=== PATIENT | male | born 1935 | race Caucasian/White ===

== ENCOUNTER 2019-10-17 16:50 | Inpatient (IN) ==
[2019-10-17] MEDS ORDERED: PIPERACILL/TAZOBAC CONSULT ACTIVE PRN (18:01)
[2019-10-17] MEDS ORDERED: ACETAMINOPHEN 1000 MG/100 ML IV IV PRN (18:01)
[2019-10-17] MEDS ORDERED: ONDANSETRON INJ 2 MG/ML 2 ML VIAL IV PRN (18:01)
[2019-10-17] MEDS ORDERED: MoRPHine SULFATE 4 MG/ML 1 ML CARP\\VIAL IV PRN (18:01)
[2019-10-17] MEDS ORDERED: PATIENT'S HEIGHT AND/OR WEIGHT NEEDED SCH (18:15)
[2019-10-17] MEDS ORDERED: PATIENT'S ALLERGY INFO NEEDS ENTERED SCH (18:15)
[2019-10-17] MEDS ORDERED: GLUCOSE 40% GEL 15 GM TUBE PO PRN (18:43)
[2019-10-17] MEDS ORDERED: GLUCOSE 10 TABS/TUBE PO PRN (18:43)
[2019-10-17] MEDS ORDERED: GLUCAGON FOR INJ 1 MG VIAL SQ PRN (18:43)
[2019-10-17] MEDS: SODIUM CHLORIDE 0.9% 1000ML 1,000 ML IV SCH (18:44)
[2019-10-17] MEDS ORDERED: HydrALAZINE HCL 20 MG/ML VIAL IV PRN (18:47)
--- NOTE | 2019-10-17 19:26 | History & Physical Report ---
Date of Service October 17, 2019 Assessment & Plan (1) Cholelithiasis: Patient be brought and kept n.p.o. for general surgical consultation. General surgery is requested MRCP. The patient will be on Zosyn therapy. He will be hydrated with intravenous fluids while he is n.p.o. with pain and antiemetic control given Preoperative COVID test is ordered the patient is without symptoms (2) Diabetes: Patient is Trulicity and Januvia will be held sliding scale insulin be employed to be given 1 dose of Lantus this evening for glucose with 200s at [facility] a glycemic consult and A1c is ordered (3) Coronary artery disease: Patient has a history of a distant CABG including a FLORES he has had no coronary symptoms and is taken on nitro for some time. He did not take either of his aspirin or Plavix this morning the only other antihypertensives and he is on his Norvasc this will be held and held hydralazine as needed for blood pressure control (4) GERD (gastroesophageal reflux disease): Patient typically is on both Pepcid and Prilosec IV Pepcid will be continued at this time (5) BPH (benign prostatic hyperplasia): Patient typically is on Flomax therapy at this point time if he does have an operation likely a José catheter will be placed Flomax is currently being held (6) Reactive airway disease: Patient is asymptomatic at this time he typically takes Singulair this can begin with a small sip of water (7) DVT prophylaxis: SCDs are used Admission and Anticipated Discharge Date Admission Date: October 17, 2019 History of Present Illness Primary Care Provider: Teresa Damon DO Patient is a transfer from [facility]. He reportedly was in his normal state of health when he was awoken at 3 AM but pain is right upper quadrant which seem to radiate to the left side. He did not did throw up at home but then presents to the hospital did vomit yellowish material there is no coffee grounds or blood. In the [place] is felt he might have cholecystitis as he did have gallbladder distention and gallstones seen on ultrasound. The patient has a history of a similar event a few years ago which resolved with conservative management. Patient only symptoms preoperatively have been intermittent constipation which is been remedied by MiraLAX and Colace. Patient states that also few months ago he had what sounds like amaurosis fugax and he has an evaluation of his carotid artery and was started on Plavix therapy in addition to his daily aspirin. Patient has known coronary disease and had a four-vessel CABG done in 1997 according to the patient 1 being a FLORES. Reportedly his glucose was in relatively good control taking Trulicity and Januvia. 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 which limits the vigorousness of his ability to do things but he does do gentle stretching without shortness of breath and he can lay flat without being short of breath also Home Medications Home Medications Medication Instructions Recorded Confirmed Type allopurinol 10/17/19 History amlodipine 10/17/19 History atorvastatin 10/17/19 History clopidogrel 10/17/19 History dulaglutide [Trulicity] mg SUBCUT 10/17/19 History famotidine 10/17/19 History fluticasone propionate INTRANASAL 10/17/19 History gabapentin 10/17/19 History montelukast mg 10/17/19 History nitroglycerin mg 10/17/19 History omeprazole 10/17/19 History sitagliptin [Januvia] mg 10/17/19 History tamsulosin mg PO 10/17/19 History Past Med/Surg History Social History Smoking Status: Never smoker Hx Alcohol Use: No Hx Substance Use: No Preferred Language: New Zealander Communication Ability: Effective Central Processing Technician Required: No Beliefs That Will Affect Care: None Current Living Situation: Spouse Other Information That Helps Us Care for You: No Feels Safe at Home: Yes Safety Concerns: Feels Safe At This Time Review of Systems Review of Systems: Mild distress and fatigue no headache, blurry or double vision no speech or swallowing issues no chest pain, pressure or palpitations no shortness of breath, cough or wheezes Right upper quadrant reproducible abdominal pain, with associated nausea & vomiting, no dysuria, hematuria or frequency no focal joint pain or swelling Radicular left-sided back pain which is pre-existing this acute event no bruising, bleeding or rashes no focal signs of weakness or numbness or altered sensation no complaints or anxiety or depression. Physical Exam Physical Exam: The patient appeared well nourished and normally developed. Vital signs as documented. Head exam is normocephalic atraumatic no scleral icterus Neck is without JVD, thyromegaly, or carotid bruits. Lungs are clear to auscultation, no focal loss of breath sounds Cardiac exam, Rhythm is regular.. No murmurs, rubs or gallops. Abdominal exam reveals normal bowel sounds, soft reproducible tenderness in the right upper quadrant Extremities are nonedematous and both pedal pulses are normal. Neurologic exam is alert and oriented, no focal loss of strength or sensation Skin is without bruises or rashes Psychologically is without concerns for anxiety or depression. Results & Data Results & Data ([facility]) Vital Signs (Past 12 Hours) Vital Signs Temp Pulse Resp BP Pulse Ox 10/17/19 18:16 99.7 F H 120 H 14 159/79 H 96 review of reports from walking the hospital CT scan of the abdomen showed gallbladder stones and distention. There is a noted 4 x 3.7 cm soft tissue mass of the gastrohepatic ligament which is similar to 2015. Ultrasound the right upper quadrant also confirmed gallbladder stones there is no comment on pericholecystic fluid Code Status & VTE Plan VTE Prophylaxis Plan VTE Prophylaxis will be ordered: Yes PG Care Time/CCT Total # of Minutes Spent Total Time Spent with Patient: Total time spent is greater than 50% in coordination of care (as documented) at patient's floor/unit and/or counseling patient: Coding Level of Care Code 21076 Initial Inpt Care Lvl 3 Diagnoses Cholelithiasis K80.20 Diabetes E11.9 Coronary artery disease I25.10 GERD (gastroesophageal reflux disease) K21.9 BPH (benign prostatic hyperplasia) N40.0 Reactive airway disease J45.909 DVT prophylaxis Z29.9
--- NOTE | 2019-10-17 19:48 | Surgery Consultation ---
Date of Consultation October 17, 2019 Assessment & Plan (1) Cholelithiasis: -pt. 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 He was in his usual state of kulwinder but woke up this morning with RUQ pain with subsequent N/V. At [place] he had a GB US that showed some gallstones with GB distention but no pericholecystic fluid. He denies palliative or provocative factors, but had a similar event a few years ago that resolved without intervention. Due to concern for cholecystitis, he was transferred to [facility] for surgical care. Upon further questioning, he had a hx. of gastric ulcer several years ago diagnosed by upper endoscopy. He noted he was having melena at the time, but has not had this problem since . He also notes a hx. of 9 pound weight loss over the past several months. He does note having several colonoscopies in the past and has been noted to have some polyps. The pt. does take plavix for hx. of TIA several months ago. He notes his most recent dose of these medication was the evening of 10/16/19. At the time of my exam, he was resting in bed, in no distress. Allergies Allergy/AdvReac Type Severity Reaction Status Date / Time No Known Allergies Allergy Unverified 10/17/19 20:49 Home Medications Home Medications Medication Instructions Recorded Confirmed Type allopurinol 10/17/19 History amlodipine 10/17/19 History atorvastatin 10/17/19 History clopidogrel 10/17/19 History dulaglutide [Trulicity] mg SUBCUT 10/17/19 History famotidine 10/17/19 History fluticasone propionate INTRANASAL 10/17/19 History gabapentin 10/17/19 History montelukast mg 10/17/19 History nitroglycerin mg 10/17/19 History omeprazole 10/17/19 History sitagliptin [Januvia] mg 10/17/19 History tamsulosin mg PO 10/17/19 History Patient History Social History Smoking Status: Never smoker Hx Alcohol Use: No Hx Substance Use: No Preferred Language: Nauruan Communication Ability: Effective Weight Loss Consultant Required: No Beliefs That Will Affect Care: None Current Living Situation: Spouse Other Information That Helps Us Care for You: No Feels Safe at Home: Yes Safety Concerns: Feels Safe At This Time Results & Data ([facility]) Vital Signs (Past 12 Hours) Vital Signs Temp Pulse Resp BP Pulse Ox 10/17/19 18:16 37.6 C H 120 H 14 159/79 H 96 PG Care Time/CCT Total # of Minutes Spent Total Time Spent with Patient: Total time spent is greater than 50% in coordination of care (as documented) at patient's floor/unit and/or counseling patient: Coding Level of Care Code 10592 Inpt Consult Level 5 Diagnoses Cholelithiasis K80.20
[2019-10-17] MEDS ORDERED: PHARMACY GLYCEMIC MGMT CONSULT PRN (19:55)
--- NOTE | 2019-10-17 20:49 | Magnetic Resonance Report ---
MRCP CLINICAL HISTORY: Generalized abdominal pain. Nausea and vomiting. COMPARISON STUDY: No priors. TECHNIQUE: Abdominal MRCP is performed utilizing various T2-weighted sequences in the axial and coron al planes. IV contrast was not administered for this examination. 3-D reformats are created and asses sed. The examination is modestly degraded by motion artifact. FINDINGS: The gallbladder is mildly distended and there are numerous small gallstones identified. There is no g allbladder wall thickening or pericholecystic fluid to suggest acute cholecystitis. There is no intra or extrahepatic biliary ductal dilatation. The common bile duct measures up to 3.5 mm in diameter. T here are no filling defects to suggest choledocholithiasis. The pancreatic duct is normal in caliber. The unenhanced liver, spleen, and adrenal glands are grossly normal. The kidneys demonstrate cortical atrophy and are without hydronephrosis. The pancreas is atrophic but otherwise normal in appearance. The abdominal aorta is normal in caliber. There is no bowel obstruction. Mild fecal retention is not ed in the colon. An indeterminant round heterogeneous mass lesion is seen along the greater curvature of the stomach on axial image #10. This measures 3.3 x 4.1 x 3.5 cm. There is no abdominal ascites. No adenopathy is seen. There is a trace right pleural effusion. Midline sternotomy wires are noted. T he heart appears enlarged and is without pericardial effusion. The bony structures are intact as imag ed. IMPRESSION: 1. Cholelithiasis with a mildly distended gallbladder. There is no convincing MRI evidence of acute c holecystitis. If there is strong clinical concern for acute cholecystitis ultrasound or nuclear hepat obiliary scan should be considered. 2. There is no intra or extrahepatic biliary ductal dilatation, and no evidence of choledocholithiasi s. 3. There is an indeterminant 4.1 cm rounded mass lesion along the greater curvature of the stomach. T his is pathologically indeterminant, and the appearance favors a GIST. Correlation with a contrast-en hanced CT scan of the abdomen and pelvis is recommended for further assessment. 4. Trace right pleural effusion. Electronically signed by: Lázaro Viveros M.D. 10/17/2019 8:48 PM
[2019-10-17] MEDS ORDERED: PIPERACILLIN/TAZOBACTAM 4.5 GM in DEXTROSE 5% 100 ML IV ONE (21:15)
[2019-10-17] MEDS ORDERED: INSULIN GLARGINE SOLOSTAR 100 UNITS/ML 3 ML PEN SC ONE ×2 (21:15→21:30)
[2019-10-17] MEDS: MONTELUKAST SODIUM 10 MG TABLET PO SCH (21:27)
[2019-10-17] MEDS: FAMOTIDINE 20 MG in SYRINGE 3 ML IV SCH (21:27)
--- NOTE | 2019-10-17 21:33 | Pharmacy Report ---
Glycemic Control Consultation - Date of Service October 17, 2019 - Scope Scope: Glycemic Pharmacist consulted for glycemic control and to write orders per [facility] inpatient glycemic control protocol. - Objective Weight: 77.5 kg Accuchecks BSG (last 24hrs): 10/17/19 10/17/19 20:47 20:48 POC Glucose 302 H* 280 H - Recent Pertinent Medications Outpatient Anti-diabetic Regimen: * Trulicity 1.5 mg SC weekly * Januvia 100 mg PO daily * A1c pending for tomorrow morning - Assessment & Plan Assessment & Plan: ASSESSMENT: * DS is an 84 year old male transferred from [facility] due to concerns for cholecystitis * Initial BSG on unit was 307 mg/dL, recheck of 280 mg/dL * Patient is NPO for MRCP/possible surgical intervention * Ordered Zosyn empirically * Will give low dose basal and utilize Novolog q3h overnight (21,00,03,06) * Will reassess insulin needs in AM PLAN FOR INPATIENT GLYCEMIC CONTROL: * Holding outpatient oral diabetes medications * Basal insulin * Lantus 10 units SC x 1 * Bolus insulin * NovoLog per scale ACHS or Q6hrs while NPO * Goal Range: Low 110 mg/dL - High 150 mg/dL * Correction Factor: 30 mg/dL/unit * Nutritional / Prandial insulin per carb ratio of 1 unit per 10 grams CHO consumed * 0300 check this evening * Please note that the plan above was derived based on current level of insulin resistance and hospital stress. These recommendations are appropriate for inpatient admission only. Plan of care upon discharge will need to be reassessed to avoid potential outpatient hypo/hyperglycemia. Thank you.
[2019-10-17] MEDS: INSULIN ASPART 100 UNITS/ML 3 ML PEN SC SCH (21:40)
[2019-10-18] MEDS: INSULIN ASPART 100 UNITS/ML 3 ML PEN SC SCH ×4 (00:05→18:26)
[2019-10-18] MEDS ORDERED: INSULIN ASPART 100 UNITS/ML 3 ML PEN SC SCH (03:00)
[2019-10-18] MEDS: PIPERACILLIN/TAZOBACTAM 3.375 GM in DEXTROSE 5% 100 ML IV SCH ×3 (03:02→18:17)
[2019-10-18] MEDS: SODIUM CHLORIDE 0.9% 1000ML 1,000 ML IV SCH ×2 (05:36→14:28)
[2019-10-18 06:09] LABS: Hematocrit (blood only) 34.4 % (42-52); Hemoglobin 11.6 g/dL (14.0-18.0); Mean Corpuscular Hemoglobin 29.6 pg (25-34); Mean Corpuscular Hgb Conc 33.7 g/dL (32-36); Mean Corpuscular Volume 87.8 fL (80-100); Mean Platelet Volume 10.2 fL (7.4-10.4); Platelet Count 148 K/uL (130-400); RDW Coefficient of Variation 15.2 % (11.5-14.5); RDW Standard Deviation 48.5 fL (36.4-46.3); Red Blood Count 3.92 M/uL (4.7-6.1); White Blood Count 15.65 K/uL (4.8-10.8)
[2019-10-18 06:15] LABS: Estimated Average Glucose 197 mg/dl; Hemoglobin A1C 8.5 % (4.5-5.6)
[2019-10-18 06:19] LABS: INR 1.2 (0.9-1.1); Partial Thromboplastin Ratio 1.2; Partial Thromboplastin Time 32.5 Seconds (21.0-31.0); Prothrombin Time 12.6 Seconds (9.0-12.0)
[2019-10-18 06:53] LABS: Albumin Level 2.9 gm/dl (3.4-5.0); BUN Creatinine Ratio 13.2 (10-20); Bilirubin Direct 0.3 mg/dl (0-0.2); Calcium 8.1 mg/dl (8.5-10.1); Creatinine Clr Calc Pharmacy 35.6 ml/min; Est GFR (African American) 47.6; Est GFR (Non-African American) 41.1; Potassium 3.6 mmol/L (3.5-5.1)
[2019-10-18 06:56] LABS: Bilirubin,Total 2.2 mg/dl (0.2-1); Total Protein 6.3 gm/dl (6.4-8.2)
[2019-10-18] MEDS: FAMOTIDINE 20 MG in SYRINGE 3 ML IV SCH ×2 (09:27→20:29)
--- NOTE | 2019-10-18 11:43 | Surgery Progress Note ---
Date of Service October 18, 2019 Assessment & Plan (1) Cholelithiasis: I do believe his symptoms are from acute cholecystitis. My original attempt was to take him urgently for cholecystectomy. However his bilirubin has bumped and I have since learned that he is on aspirin and Plavix and has only been off of them for about a day and a half. I have also reviewed his CT scan from [place] with radiology and he has an exophytic mass on the lesser curvature of the stomach near the gastropathic ligament. 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 This is somewhat concerning particularly considering his recent unexplained weight loss. The patient also tells me that he had what appears to be stroke-like symptoms in the last 2 weeks which include amaurosis fugax as well as slurred speech. Considering this whole situation I think the best course of action would be to consult GI to get their opinion regarding his increasing bilirubin. We should also obtain carotid Dopplers to evaluate his TIA symptoms. This will also give us a couple days to allow the Plavix and aspirin to washout because the mass near his stomach should be biopsied at the time of his cholecystectomy. If everything works out over the weekend I can potentially perform cholecystectomy and biopsy of the gastric mass on Monday or Monday of next week. Will discuss with primary team. Would continue n.p.o. for now as well as antibiotics. If his symptoms improve he could potentially have a bland diet over the weekend. [facility] surgeons covering for weekend. (2) Coronary artery disease: (3) Gastric mass: Admission and Anticipated Discharge Date Admission Date: October 17, 2019 Subjective pt seen. transferred from [facility] with RUQ pain. Imaging reveals gallstones with a mildly thickened gallbladder wall. He states he believes he has had this before several years ago which resolved with conservative management. He also has a slight bump in his total bilirubin. It was 1.8 yesterday and 2.1 today. He believes his pain is somewhat improved from yesterday. He does feel weak. Surprisingly he is somewhat hungry and would like something to eat. He also relates that he has lost about 10 pounds in the last several weeks unintentionally. Physical Exam Physical Exam: Alert and oriented. No acute distress. Appears comfortable. HEENT: No visible jaundice. PERRLA. EOMI. Abdomen: Soft. Positive epigastric and right upper quadrant tenderness to palpation. No peritonitis. No palpable masses. Extremities: No clubbing cyanosis or edema Results & Data ([facility]) Vital Signs (Past 12 Hours) Vital Signs Temp Pulse Resp BP Pulse Ox 10/18/19 07:41 37.9 C H 76 20 127/64 90 10/18/19 03:10 37.5 C 80 16 152/73 H 94 10/17/19 23:52 37.9 C H 88 18 159/71 H 93 PG Care Time/CCT Total # of Minutes Spent Total Time Spent with Patient: Total time spent is greater than 50% in coordination of care (as documented) at patient's floor/unit and/or counseling patient: Coding Level of Care Code 45974 Subseq Hosp Care Lvl 3 Diagnoses Cholelithiasis K80.20 Coronary artery disease I25.10 Gastric mass K31.89
--- NOTE | 2019-10-18 13:13 | Gastrointestinal Consultation ---
Date of Consultation October 18, 2019 Assessment & Plan (1) Elevated bilirubin: Discussed with Dr. Mesa. Predominantly indirect hyperbilirubinemia noted with a T bili of 2.2 and D bili of 0.3. MRCP did not note any ductal abnormalities or concern for choledocholithiasis. Per general surgery note, it is felt that the patient has acute cholecystitis and reportedly there are plans for a cholecystectomy. Would advise continuing to monitor bilirubin. If patient develops jaundice or significantly worsening lab values, consider repeat imaging to assess for biliary ductal abnormalities/stones. Otherwise, would recommend proceeding with a cholecystectomy (when medically stable in all regards) with an IOC if it is felt that the patient has cholecystitis. 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 Per General surgery note, it appears that the plan is to biopsy this during cholecystectomy. Supervising Physician Co-Signing Physician Notes Agree with RAJAT Armijo as above Abd: Soft, Tender RUQ, ND, +BS Continue current therapy and supportive care Defer to surgery regarding cholecystectomy Patient does have history of PUD, therefore, will add Protonix 40 mg IV daily History of Present Illness Reason for Consultation: Elevated bilirubin Attending Physician: Anabel Villagran MD History of Present Illness Patient is an 84 yo male who was transferred to [facility] from [facility]. He reports that he had an abrupt onset of RUQ pain on 10/16. He called his PCP and was instructed to go to the ED. He reports vomiting a bilious substance but denies coffee ground emesis/bright red emesis. He reportedly had an US in [place] that apparently indicated a questionable cholecystitis, gallbladder distention, and gallstones. The patient reports similar issues in the past, but reports that he never opted to have a cholecystectomy. GI has been consulted for an elevated bilirubin. His total bili is 2.2. Repor tedly was lower on labs performed at [facility] on 10/16. Direct bili is 0.3 indicated a predominantly indirect hyperbilirubinemia. Other LFTs are within normal limits. 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 There were no biliary ductal abnormalities noted on imaging studies. The patient is now off his Aspirin and Plavix in preparation for a cholecystectomy. Unfortunately he is reporting severe weakness and inability to ambulate the way he normally can according to his reports. It appears a neuro work-up was initiated by general surgery. He denies family history of GI issues. Allergies Allergy/AdvReac Type Severity Reaction Status Date / Time No Known Allergies Allergy Unverified 10/17/19 20:49 Home Medications Home Medications Medication Instructions Recorded Confirmed Type allopurinol 10/17/19 History amlodipine 10/17/19 History atorvastatin 10/17/19 History clopidogrel 10/17/19 History dulaglutide [Trulicity] mg SUBCUT 10/17/19 History famotidine 10/17/19 History fluticasone propionate INTRANASAL 10/17/19 History gabapentin 10/17/19 History montelukast mg 10/17/19 History nitroglycerin mg 10/17/19 History omeprazole 10/17/19 History sitagliptin [Januvia] mg 10/17/19 History tamsulosin mg PO 10/17/19 History Patient History Social History Smoking Status: Never smoker Hx Alcohol Use: No Hx Substance Use: No Preferred Language: Chinese Communication Ability: Effective Relief Driller Required: No Beliefs That Will Affect Care: None Current Living Situation: Spouse Other Information That Helps Us Care for You: No Feels Safe at Home: Yes Safety Concerns: Feels Safe At This Time Review of Systems Constitutional: + fatigue and + weakness; no fever and no chills Eyes: no problem reported Ear, Nose, Mouth, Throat: no problem reported Respiratory: no cough and no dyspnea Cardiovascular: no chest pain Gastrointestinal: + abdominal pain, + nausea, + vomiting and + constipation Musculoskeletal: difficulty ambulating Integumentary: no rash Neurologic: + generalized weakness Psychiatric: no problem reported Hematologic / Lymphatic: no unexplained weight loss Physical Exam Constitutional: well developed and + ill appearing Eyes: no conjunctival abnormality Neck: normal visual inspection Respiratory: normal respiratory effort Cardiovascular: Extremities: no edema Gastrointestinal (Abdomen): Inspection/Auscultation: abdomen normal to inspection Percussion/Palpation: + abdomen tender and abdomen soft Musculoskeletal: Head/Neck/Chest: normocephalic Skin: no rashes, warm and dry Psychiatric: Orientation: alert and oriented x 3 Results & Data ([facility]) Vital Signs (Past 12 Hours) Vital Signs Temp Pulse Resp BP Pulse Ox 10/18/19 07:41 37.9 C H 76 20 127/64 90 10/18/19 03:10 37.5 C 80 16 152/73 H 94 PG Care Time/CCT Total # of Minutes Spent Total Time Spent with Patient: Total time spent is greater than 50% in coordination of care (as documented) at patient's floor/unit and/or counseling patient: Coding Level of Care Code 06366 Inpt Consult Level 3 Diagnoses Elevated bilirubin R17 Gastric mass K31.89
[2019-10-18] MEDS: ASPIRIN 81 MG ECTAB PO SCH (14:28)
--- NOTE | 2019-10-18 14:46 | Pharmacy Report ---
Glycemic Control Progress Note - Date of Service October 18, 2019 - Scope Glycemic Pharmacist consulted for glycemic control to write orders per [facility] inpatient glycemic control protocol. - Objective Accuchecks BSG(last 24 hours):: 10/17/19 10/17/19 10/17/19 20:47 20:48 23:49 Glucose POC Glucose 302 H* 280 H 215 H 10/18/19 10/18/19 10/18/19 02:59 05:26 05:29 Glucose 132 H POC Glucose 169 H 136 H 10/18/19 12:40 Glucose POC Glucose 147 H HbA1c:: Hemoglobin A1c 8.5 % (4.5-5.6) H 10/18/19 05:26 - Recent Pertinent Medications The patient is currently receiving: * Basal insulin: Lantus 10 units SQ x 1 * Correctional Insulin: Novolog Correction per scale ACHS Goal Range: Low 110 mg/dL - High 150 mg/dL Correction Factor: 30 mg/dL/unit * Prandial insulin: Per carb ratio of 1 unit per 10 grams CHO consumed - Outpatient Anti-Diabetic Meds [facility] 1.5 weekly Januvia 50 mg daily - Assessment & Plan ASSESSMENT: * See progress note from 10/17/19 for more background info, in short: * Pt receiving SQ basal bolus insulin regimen for hyperglycemia secondary to baseline DM (outpatient regimen on hold). Patient is currently NPO and has been all day. * Patient is currently receiving an average of 18 units of insulin per day * 10 units of basal insulin * 8 units of prandial/correctional insulin * BSGs ranging 136 - 280 mg/dl over the past 24hrs * Changes needed to insulin regimen: * AM Fasting BSG = 136 mg/dl. This is in goal range for patient based on inpatient targets and co-morbidities. The patient required approximately 4 extra units overnight. Plan for 15 units of Lantus. * Post-prandial BSGs are in range therefore no changes needed to CF/CR. * Total daily dose = ? units. Will change once a diet is ordered * Additional notes / comments: hold Januvia PLAN FOR INPATIENT GLYCEMIC CONTROL: * Increasing Lantus to 15 units SQ HS * Continuing correction factor of 30 mg/dl/unit * Continuing carb ratio of 1 unit per 10 grams CHO consumed * Continuing goal range of Low 110 mg/dL - High 150 mg/dL * Please note that the plan above was derived based on current level of insulin resistance and hospital stress. These recommendations are appropriate for inpatient admission only. Plan of care upon discharge will need to be reassessed to avoid potential outpatient hypo/hyperglycemia. Thank you.
--- NOTE | 2019-10-18 15:17 | Ultrasound Report ---
ULTRASOUND OF THE CAROTID ARTERIES CLINICAL HISTORY: Stroke. COMPARISON STUDY: No priors. TECHNIQUE: Real-time, grayscale, and color Doppler sonography of the carotid arteries is performed. I mages are reviewed in the transverse and longitudinal planes. FINDINGS: Blood pressure in the right arm measures 150/70 and blood pressure in the left arm measures 150/75. The carotid arteries are patent bilaterally and demonstrate antegrade flow. There is moderate echogen ic shadowing atherosclerotic plaque seen in the carotid bulbs bilaterally. Normal doppler arterial wa veforms are seen throughout. Velocity measurements are listed below. Common carotid peak systolic velocity (cm/sec): RIGHT: 90 LEFT: 68 ICA proximal peak systolic velocity (cm/sec): RIGHT: 126 LEFT: 64 ICA mid peak systolic velocity (cm/sec): RIGHT: 81 LEFT: 86 ICA distal peak systolic velocity (cm/sec): RIGHT: 70 LEFT: 75 ICA/CC peak systolic ratio: RIGHT: 1.4 LEFT: 1.3 Antegrade flow was shown in the vertebral arteries. The external carotid arteries are patent. IMPRESSION: 1. There is no sonographic evidence of hemodynamically significant stenosis in the right or left majano tid arterial system. 2. Antegrade flow is shown in the vertebral arteries. ACT 112: Negative or not required by law. Electronically signed by: Lázaro Viveros M.D. 10/18/2019 3:15 PM
--- NOTE | 2019-10-18 17:32 | Hospitalist Progress Note ---
Date of Service October 18, 2019 Assessment & Plan (1) Acute cholecystitis: Presented with right-sided abdominal pain, nausea/vomiting, with leukocytosis and low-grade fevers here. Found to have cholelithiasis and distended gallbladder on CT scan and ultrasound, although no definite signs of acute cholecystitis on imaging. Total bilirubin mildly elevated here today but LFTs otherwise normal. He had an MRCP here which again showed cholelithiasis with mildly distended gallbladder, no convincing evidence of acute cholecystitis, no CBD dilatation, with an indeterminate 4.1 cm mass lesion along greater curvature of the stomach appearance favors a GIST -Continue IV Zosyn -Continue IV fluids and keep n.p.o. -Follow LFTs, CBC in the morning -Appreciate general surgery consultation-holding Plavix but okay to continue aspirin as per my discussion with surgeon-plan for cholecystectomy on Monday after Plavix has been on hold -Converted home Pepcid IV and GI added IV Protonix today -IV morphine as needed for pain, IV Tylenol as needed for fever -Surgery advised that he could have his diet advanced if LFTs remain normal and he is doing well over the weekend, but n.p.o. after midnight on Monday night (2) Cholelithiasis: As above (3) Diabetes: Hemoglobin A1c elevated at 8.5% N.p.o. for now-continue sliding scale insulin every 6 hours Accu-Cheks Holding home Trulicity and Januvia (4) Coronary artery disease: Patient has a history of a distant CABG including a FLORES he has had no coronary symptoms and has not taken nitro for some time. -Okay to continue aspirin as per surgery -Holding Plavix He is not on a beta-bess and his statin is being held while n.p.o. 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 (10) BPH (benign prostatic hyperplasia): Patient reports difficulty with urination at times He is on tamsulosin at home-we will continue this while here despite being n.p.o. so that he does not have any issues with urinary retention (11) GERD (gastroesophageal reflux disease): Continue IV Pepcid and IV Protonix (12) CKD (chronic kidney disease) stage 3, GFR 30-59 ml/min: Unknown baseline creatinine, but 1.5 here on labs Follow BMP Renally dose medications (13) History of TIA (transient ischemic attack): Reports 3 different episodes of either visual symptoms or slurred speech over the last 20 years, but had the recent episode at least a month ago of right-sided visual blurriness that lasted 1 minute He reports he had an outpatient brain MRI and carotid ultrasound of which I do not have the results Carotid ultrasound ordered here by surgery-normal -Continue aspirin but hold Plavix (14) DVT prophylaxis: SCDs are used Disposition-continued stay Admission and Anticipated Discharge Date Admission Date: October 17, 2019 Subjective Patient reports some right-sided abdominal pain but is much improved from yesterday. No nausea. Last bowel movement was yesterday morning. He denies any chest pain or shortness of breath. I discussed his case with general surgery. Review of Systems Review of Systems: All systems reviewed & are unremarkable except as noted in HPI & below Physical Exam Constitutional: WD/WN, vitals as above Eyes: + anicteric sclerae Neck: trachea midline, no thyromegaly Respiratory: normal respiratory effort, lungs clear to auscultation Cardiovascular: RRR, no murmur, no edema Chest (Breasts): Chest: normal inspection of chest Gastrointestinal (Abdomen): Inspection/Auscultation: normal bowel sounds; abdomen not distended Percussion/Palpation: + abdomen tender (Mild in the right mid and upper quadrants without guarding or rebound tenderness) and abdomen soft; no guarding Musculoskeletal: Extremities: extremities normal to inspection; no cyanosis and no clubbing Skin: no rashes, warm and dry Neurologic: moves all extremities and awake; no focal motor deficits Psychiatric: A+Ox3, euthymic affect Lymphatic: no lymphedema Results & Data Results & Data ([facility]) Vital Signs (Past 12 Hours) Vital Signs Temp Pulse Resp BP Pulse Ox 10/18/19 15:29 36.8 C 70 16 146/68 H 94 10/18/19 07:41 37.9 C H 76 20 127/64 90 Laboratory Results 10/18/19 10/18/19 10/18/19 Range/Units 17:37 12:40 05:29 WBC (4.8-10.8) K/uL RBC (4.7-6.1) M/uL Hgb (14.0-18.0) g/dL Hct (42-52) % MCV (80-100) fL MCH (25-34) pg MCHC (32-36) g/dL RDW Std Deviation (36.4-46.3) fL RDW Coeff of Armaan (11.5-14.5) % Plt Count (130-400) K/uL MPV (7.4-10.4) fL PT (9.0-12.0) Seconds INR (0.9-1.1) APTT (21.0-31.0) Seconds PTT Ratio Sodium (136-145) mmol/L Potassium (3.5-5.1) mmol/L Chloride (98-107) mmol/L Carbon Dioxide (21-32) mmol/L Anion Gap (3-11) BUN (7-18) mg/dl Creatinine (0.6-1.4) mg/dl Est Cr Clr Drug Dosing ml/min Est GFR ( Amer) Est GFR (Non-Af Amer) BUN/Creatinine Ratio (10-20) Glucose (70-99) mg/dl POC Glucose 148 H 147 H 136 H (70-99) mg/dl Estimat Average Glucose mg/dl Hemoglobin A1c (4.5-5.6) % Calcium (8.5-10.1) mg/dl Total Bilirubin (0.2-1) mg/dl Direct Bilirubin (0-0.2) mg/dl AST (15-37) U/L ALT (12-78) U/L Alkaline Phosphatase (45-117) U/L Total Protein (6.4-8.2) gm/dl Albumin (3.4-5.0) gm/dl COVID-19 Eval Order SARS-CoV-2, RNA, NAAT (NEGATIVE) 10/18/19 10/18/19 10/18/19 Range/Units 05:26 05:26 05:26 WBC (4.8-10.8) K/uL RBC (4.7-6.1) M/uL Hgb (14.0-18.0) g/dL Hct (42-52) % MCV (80-100) fL MCH (25-34) pg MCHC (32-36) g/dL RDW Std Deviation (36.4-46.3) fL RDW Coeff of Armaan (11.5-14.5) % Plt Count (130-400) K/uL MPV (7.4-10.4) fL PT 12.6 H (9.0-12.0) Seconds INR 1.2 H (0.9-1.1) APTT 32.5 H (21.0-31.0) Seconds PTT Ratio 1.2 Sodium 136 (136-145) mmol/L Potassium 3.6 (3.5-5.1) mmol/L Chloride 105 (98-107) mmol/L Carbon Dioxide 23 (21-32) mmol/L Anion Gap 8.0 (3-11) BUN 20 H (7-18) mg/dl Creatinine 1.54 H (0.6-1.4) mg/dl Est Cr Clr Drug Dosing 35.6 ml/min Est GFR ( Amer) 47.6 Est GFR (Non-Af Amer) 41.1 BUN/Creatinine Ratio 13.2 (10-20) Glucose 132 H (70-99) mg/dl POC Glucose (70-99) mg/dl Estimat Average Glucose 197 mg/dl Hemoglobin A1c 8.5 H (4.5-5.6) % Calcium 8.1 L (8.5-10.1) mg/dl Total Bilirubin 2.2 H (0.2-1) mg/dl Direct Bilirubin 0.3 H (0-0.2) mg/dl AST 18 (15-37) U/L ALT 29 (12-78) U/L Alkaline Phosphatase 78 (45-117) U/L Total Protein 6.3 L (6.4-8.2) gm/dl Albumin 2.9 L (3.4-5.0) gm/dl COVID-19 Eval Order SARS-CoV-2, RNA, NAAT (NEGATIVE) 10/18/19 10/18/19 10/17/19 Range/Units 05:26 02:59 23:49 WBC 15.65 H (4.8-10.8) K/uL RBC 3.92 L (4.7-6.1) M/uL Hgb 11.6 L (14.0-18.0) g/dL Hct 34.4 L (42-52) % MCV 87.8 (80-100) fL MCH 29.6 (25-34) pg MCHC 33.7 (32-36) g/dL RDW Std Deviation 48.5 H (36.4-46.3) fL RDW Coeff of Armaan 15.2 H (11.5-14.5) % Plt Count 148 (130-400) K/uL MPV 10.2 (7.4-10.4) fL PT (9.0-12.0) Seconds INR (0.9-1.1) APTT (21.0-31.0) Seconds PTT Ratio Sodium (136-145) mmol/L Potassium (3.5-5.1) mmol/L Chloride (98-107) mmol/L Carbon Dioxide (21-32) mmol/L Anion Gap (3-11) BUN (7-18) mg/dl Creatinine (0.6-1.4) mg/dl Est Cr Clr Drug Dosing ml/min Est GFR ( Amer) Est GFR (Non-Af Amer) BUN/Creatinine Ratio (10-20) Glucose (70-99) mg/dl POC Glucose 169 H 215 H (70-99) mg/dl Estimat Average Glucose mg/dl Hemoglobin A1c (4.5-5.6) % Calcium (8.5-10.1) mg/dl Total Bilirubin (0.2-1) mg/dl Direct Bilirubin (0-0.2) mg/dl AST (15-37) U/L ALT (12-78) U/L Alkaline Phosphatase (45-117) U/L Total Protein (6.4-8.2) gm/dl Albumin (3.4-5.0) gm/dl COVID-19 Eval Order SARS-CoV-2, RNA, NAAT (NEGATIVE) 10/17/19 10/17/19 10/17/19 Range/Units 21:35 21:35 20:48 WBC (4.8-10.8) K/uL RBC (4.7-6.1) M/uL Hgb (14.0-18.0) g/dL Hct (42-52) % MCV (80-100) fL MCH (25-34) pg MCHC (32-36) g/dL RDW Std Deviation (36.4-46.3) fL RDW Coeff of Armaan (11.5-14.5) % Plt Count (130-400) K/uL MPV (7.4-10.4) fL PT (9.0-12.0) Seconds INR (0.9-1.1) APTT (21.0-31.0) Seconds PTT Ratio Sodium (136-145) mmol/L Potassium (3.5-5.1) mmol/L Chloride (98-107) mmol/L Carbon Dioxide (21-32) mmol/L Anion Gap (3-11) BUN (7-18) mg/dl Creatinine (0.6-1.4) mg/dl Est Cr Clr Drug Dosing ml/min Est GFR ( Amer) Est GFR (Non-Af Amer) BUN/Creatinine Ratio (10-20) Glucose (70-99) mg/dl POC Glucose 280 H (70-99) mg/dl Estimat Average Glucose mg/dl Hemoglobin A1c (4.5-5.6) % Calcium (8.5-10.1) mg/dl Total Bilirubin (0.2-1) mg/dl Direct Bilirubin (0-0.2) mg/dl AST (15-37) U/L ALT (12-78) U/L Alkaline Phosphatase (45-117) U/L Total Protein (6.4-8.2) gm/dl Albumin (3.4-5.0) gm/dl COVID-19 Eval Order Covid19 [facility] SARS-CoV-2, RNA, NAAT NEGATIVE (NEGATIVE) 10/17/19 Range/Units 20:47 WBC (4.8-10.8) K/uL RBC (4.7-6.1) M/uL Hgb (14.0-18.0) g/dL Hct (42-52) % MCV (80-100) fL MCH (25-34) pg MCHC (32-36) g/dL RDW Std Deviation (36.4-46.3) fL RDW Coeff of Armaan (11.5-14.5) % Plt Count (130-400) K/uL MPV (7.4-10.4) fL PT (9.0-12.0) Seconds INR (0.9-1.1) APTT (21.0-31.0) Seconds PTT Ratio Sodium (136-145) mmol/L Potassium (3.5-5.1) mmol/L Chloride (98-107) mmol/L Carbon Dioxide (21-32) mmol/L Anion Gap (3-11) BUN (7-18) mg/dl Creatinine (0.6-1.4) mg/dl Est Cr Clr Drug Dosing ml/min Est GFR ( Amer) Est GFR (Non-Af Amer) BUN/Creatinine Ratio (10-20) Glucose (70-99) mg/dl POC Glucose 302 H* (70-99) mg/dl Estimat Average Glucose mg/dl Hemoglobin A1c (4.5-5.6) % Calcium (8.5-10.1) mg/dl Total Bilirubin (0.2-1) mg/dl Direct Bilirubin (0-0.2) mg/dl AST (15-37) U/L ALT (12-78) U/L Alkaline Phosphatase (45-117) U/L Total Protein (6.4-8.2) gm/dl Albumin (3.4-5.0) gm/dl COVID-19 Eval Order SARS-CoV-2, RNA, NAAT (NEGATIVE) PG Care Time/CCT Total # of Minutes Spent Total Time Spent with Patient: Total time spent is greater than 50% in coordination of care (as documented) at patient's floor/unit and/or counseling patient: Coding Level of Care Code 45160 Subseq Hosp Care Lvl 3 Diagnoses Acute cholecystitis K81.0 Cholelithiasis K80.20 Diabetes E11.9 Coronary artery disease I25.10 Elevated bilirubin R17 Gastric mass K31.89 Hypertension I10 Gout M10.9 Dyslipidemia E78.5 BPH (benign prostatic hyperplasia) N40.0 GERD (gastroesophageal reflux disease) K21.9 CKD (chronic kidney disease) stage 3, GFR 30-59 ml/min N18.3 History of TIA (transient ischemic attack) Z86.73 DVT prophylaxis Z29.9
[2019-10-18] MEDS: MONTELUKAST SODIUM 10 MG TABLET PO SCH (20:25)
[2019-10-18] MEDS: TAMSULOSIN HCL 0.4 MG CAP PO SCH (20:25)
[2019-10-18] MEDS: ACETAMINOPHEN 1,000 MG/100 ML VIAL IV PRN (20:26)
[2019-10-18] MEDS ORDERED: INSULIN GLARGINE SOLOSTAR 100 UNITS/ML 3 ML PEN SC SCH ×2 (21:00)
[2019-10-19] MEDS: INSULIN ASPART 100 UNITS/ML 3 ML PEN SC SCH ×4 (00:10→17:59)
[2019-10-19] MEDS: PIPERACILLIN/TAZOBACTAM 3.375 GM in DEXTROSE 5% 100 ML IV SCH ×2 (02:18→09:21)
[2019-10-19] MEDS: SODIUM CHLORIDE 0.9% 1000ML 1,000 ML IV SCH (02:18)
[2019-10-19] MEDS: DEXTROSE 50% 50 ML SYRINGE IV PRN ×2 (06:04→12:17)
[2019-10-19 06:34] LABS: Hematocrit (blood only) 33.4 % (42-52); Hemoglobin 11.2 g/dL (14.0-18.0); Mean Corpuscular Hemoglobin 29.7 pg (25-34); Mean Corpuscular Hgb Conc 33.5 g/dL (32-36); Mean Corpuscular Volume 88.6 fL (80-100); Mean Platelet Volume 10.2 fL (7.4-10.4); Platelet Count 137 K/uL (130-400); RDW Coefficient of Variation 15.3 % (11.5-14.5); RDW Standard Deviation 49.6 fL (36.4-46.3); Red Blood Count 3.77 M/uL (4.7-6.1); White Blood Count 19.24 K/uL (4.8-10.8)
[2019-10-19 07:10] LABS: Albumin Level 2.5 gm/dl (3.4-5.0); Bilirubin Direct 0.4 mg/dl (0-0.2); Bilirubin,Total 2.9 mg/dl (0.2-1); Calcium 8.6 mg/dl (8.5-10.1); Creatinine Clr Calc Pharmacy 40.9 ml/min; Est GFR (African American) 56.4; Est GFR (Non-African American) 48.6; Potassium 3.2 mmol/L (3.5-5.1); Total Protein 6.1 gm/dl (6.4-8.2)
[2019-10-19] MEDS: ACETAMINOPHEN 1,000 MG/100 ML VIAL IV PRN (07:16)
[2019-10-19] MEDS: ASPIRIN 81 MG ECTAB PO SCH (08:42)
[2019-10-19] MEDS: FAMOTIDINE 20 MG in SYRINGE 3 ML IV SCH (08:43)
[2019-10-19] MEDS ORDERED: ALBUTEROL 0.083% NEBU SOLN 3 ML VIAL NEB PRN (08:59)
[2019-10-19] MEDS ORDERED: D5NSS + 20MEQ KCL 20 MEQ/1,000 ML BAG IV SCH (09:00)
[2019-10-19] MEDS: POTASSIUM CHLORIDE / WTR 10 MEQ/100 ML PLCT IV SCH ×2 (09:26→10:33)
--- NOTE | 2019-10-19 10:53 | Surgery Progress Note ---
Date of Service pt feels better, no abdominal pain, no nausea, no vomiting, no fever, October 19, 2019 Assessment & Plan Admission and Anticipated Discharge Date Admission Date: October 17, 2019 doing better, no abdominal pain, continue treatment, lizzette mcdonalde by Dr. Cueva on Monday will F/U Supervising Physician Co-Signing Physician Notes Agree with RAJAT Armijo as above Abd: Soft, Tender RUQ, ND, +BS Continue current therapy and supportive care Defer to surgery regarding cholecystectomy Patient does have history of PUD, therefore, will add Protonix 40 mg IV daily Subjective pt seen. transferred from [facility] with RUQ pain. Imaging reveals gallstones with a mildly thickened gallbladder wall. He states he believes he has had this before several years ago which resolved with conservative management. He also has a slight bump in his total bilirubin. It was 1.8 yesterday and 2.1 today. He believes his pain is somewhat improved from yesterday. He does feel weak. Surprisingly he is somewhat hungry and would like something to eat. He also relates that he has lost about 10 pounds in the last several weeks unintentionally. Physical Exam Constitutional: WD/WN, vitals as above well developed and well nourished Eyes: PERRL, conjunctivae normal, anicteric sclerae Neck: trachea midline, no thyromegaly Respiratory: normal respiratory effort, lungs clear to auscultation Cardiovascular: RRR, no murmur, no edema Gastrointestinal (Abdomen): normal bowel sounds, soft, nontender, no hepatosplenomegaly Percussion/Palpation: abdomen soft NT, ND, BS + Musculoskeletal: no cyanosis or clubbing, extremities motor strength 5/5 Skin: no rashes, warm and dry Neurologic: awake Psychiatric: Orientation: alert and oriented x 3 Results & Data ([facility]) Vital Signs (Past 12 Hours) Vital Signs Temp Pulse Resp BP BP Pulse Ox 10/19/19 07:30 161/67 H 10/19/19 07:00 37.0 C 71 19 142/100 H 86 L 10/18/19 23:25 37.2 C 85 16 163/69 H 95 Laboratory Results Abnormal lab results 10/18/19 10/18/19 10/19/19 Range/Units 12:40 17:37 05:55 WBC 19.24 H (4.8-10.8) K/uL RBC 3.77 L (4.7-6.1) M/uL Hgb 11.2 L (14.0-18.0) g/dL Hct 33.4 L (42-52) % RDW Std Deviation 49.6 H (36.4-46.3) fL RDW Coeff of Armaan 15.3 H (11.5-14.5) % Potassium (3.5-5.1) mmol/L Chloride (98-107) mmol/L BUN (7-18) mg/dl Glucose (70-99) mg/dl POC Glucose 147 H 148 H (70-99) mg/dl Total Bilirubin (0.2-1) mg/dl Direct Bilirubin (0-0.2) mg/dl Total Protein (6.4-8.2) gm/dl Albumin (3.4-5.0) gm/dl 10/19/19 10/19/19 10/19/19 Range/Units 05:55 05:58 06:20 WBC (4.8-10.8) K/uL RBC (4.7-6.1) M/uL Hgb (14.0-18.0) g/dL Hct (42-52) % RDW Std Deviation (36.4-46.3) fL RDW Coeff of Armaan (11.5-14.5) % Potassium 3.2 L (3.5-5.1) mmol/L Chloride 108 H (98-107) mmol/L BUN 20 H (7-18) mg/dl Glucose 51 L* (70-99) mg/dl POC Glucose 54 L* 113 H (70-99) mg/dl Total Bilirubin 2.9 H (0.2-1) mg/dl Direct Bilirubin 0.4 H (0-0.2) mg/dl Total Protein 6.1 L (6.4-8.2) gm/dl Albumin 2.5 L (3.4-5.0) gm/dl
[2019-10-19] MEDS: PANTOprazole 40 MG in SYRINGE 0 ML IV SCH (11:05)
--- NOTE | 2019-10-19 12:48 | Hospitalist Progress Note ---
Date of Service October 19, 2019 Assessment & Plan (1) Acute cholecystitis: Presented with right-sided abdominal pain, nausea/vomiting, with leukocytosis and low-grade fevers here. Found to have cholelithiasis and distended gallbladder on CT scan and ultrasound, although no definite signs of acute cholecystitis on imaging. Total bilirubin mildly elevated but LFTs otherwise normal. He had an MRCP which again showed cholelithiasis with mildly distended gallbladder, no convincing evidence of acute cholecystitis, no CBD dilatation, with an indeterminate 4.1 cm mass lesion along greater curvature of the stomach appearance favors a GIST Abdominal pain is improved, leukocytosis worsening and with another fever today LFTs stable with mildly elevated total bilirubin -We will change antibiotics to imipenem in case resistant to Zosyn DC Zosyn -DC IV fluids due to volume overload as below, continue n.p.o. status -Follow LFTs, BMP, CBC in the morning -Appreciate general surgery consultation-holding Plavix but okay to continue aspirin as per my discussion with surgeon-plan for cholecystectomy on Monday after Plavix has been on hold -Continue IV Protonix, DC IV Pepcid -IV morphine as needed for pain, IV Tylenol as needed for fever -Surgery advised that he could have his diet advanced if LFTs remain normal and he is doing well over the weekend, but n.p.o. after midnight on Monday night (2) Acute respiratory failure with hypoxia: Developed acute respiratory failure with hypoxia on 10/18 likely secondary to pulmonary edema from volume overload Also with diffuse wheezing that responded to bronchodilators-question if has underlying reactive airway disease given history of allergic rhinitis and Singulair use No history of smoking Chest x-ray with pulmonary edema and cardiomegaly ECG with sinus rhythm with first-degree block, no evidence of ischemia. He did not have any chest pain associated with the shortness of breath. ABG 7.35/33/65 on 4 L nasal cannula IV fluids were discontinued and IV Lasix 40 mg x 1 was given Albuterol nebulizer was administered as well as 4 L nasal cannula oxygen and he had significant improvement within 1 hour. -Start Solu-Medrol 60 mg IV every 12 hours in case of bronchospastic component and inflammation -Continue albuterol nebulizer every 6 hours scheduled -Continue supplemental O2 to keep pulse ox greater than 90% (3) Hypoglycemia: With blood glucose low at 54 due to n.p.o. status and was given long- acting insulin last evening Started on D5 W this morning, but then fluids discontinued when developed respiratory distress as above D50 amp was given 2 times today -Now on IV steroids for respiratory distress as above which should bring his blood sugars up Remain n.p.o. Discussed with pharmacy who is managing his insulin-they will significantly low er his Lantus for tonight Accu-Cheks every 6 hours Hemoglobin A1c is out of control 8.5% Holding home Anitha Murphy (4) Cholelithiasis: As above (5) Hypokalemia: Replaced today with IV and p.o. potassium Follow BMP and magnesium in the morning (6) Diabetes: As above (7) Coronary artery disease: Patient has a history of a distant CABG including a FLORES he has had no coronary symptoms and has not taken nitro for some time. -Okay to continue aspirin as per surgery -Holding Plavix He is not on a beta-bess and his statin is being held while n.p.o. 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 (13) BPH (benign prostatic hyperplasia): Patient reports difficulty with urination at times He is on tamsulosin at home-we will continue this while here despite being n.p.o. so that he does not have any issues with urinary retention (14) GERD (gastroesophageal reflux disease): Continue IV Protonix and DC IV Pepcid-do not need both (15) CKD (chronic kidney disease) stage 3, GFR 30-59 ml/min: Unknown baseline creatinine, but 1.5 here on labs on admission and now improved to 1.34 Follow BMP Renally dose medications (16) History of TIA (transient ischemic attack): Reports 3 different episodes of either visual symptoms or slurred speech over the last 20 years, but had the recent episode at least a month ago of right-sided visual blurriness that lasted 1 minute He reports he had an outpatient brain MRI and carotid ultrasound of which I do not have the results Carotid ultrasound ordered here by surgery-normal -Continue aspirin but hold Plavix as above for surgery (17) DVT prophylaxis: SCDs are used Disposition-continued stay, transferred to PCU for respiratory failure I went to see the patient on 3 occasions today and spent a total of 100 minutes on his care Admission and Anticipated Discharge Date Admission Date: October 17, 2019 Subjective Patient had hypoglycemia both in the morning and at lunchtime. He then spiked a fever and developed severe respiratory distress around lunchtime. He was wheezing, tachypneic, and reported shortness of breath. He denied any chest pain. Denied abdominal pain. He was also having an exacerbation of his chronic radicular pain down his legs left greater than right. A stat chest x-ray, ABG, and EKG were obtained. He was provided with an albuterol nebulizer treatment, and IV Lasix after chest x-ray showed pulmonary edema. He was transferred down to the PCU and felt much improved within the hour. When I checked on him multiple times, he improved over the following hour. IV steroids were also used given his wheezing and improvement with bronchodilators. IV fluids were discontinued and he remains n.p.o. Review of Systems Review of Systems: All systems reviewed & are unremarkable except as noted in HPI & below Physical Exam Constitutional: + acute distress, + ill appearing and average body habitus; not lethargic Eyes: + anicteric sclerae ENMT: Ears: no hearing impairment Neck: trachea midline, no thyromegaly Respiratory: + respiratory distress, + labored breathing, + retractions, + uses accessory muscles and + tachypneic Auscultation: + crackles (mild bibasilar) and + wheezes (diffusely) Cardiovascular: Rate/Rhythm: regular rhythm and + tachycardic (mild) Heart Sounds: no murmur Extremities: no calf tenderness and no edema Gastrointestinal (Abdomen): normal bowel sounds, soft, nontender, no hepatosplenomegaly Musculoskeletal: Extremities: extremities normal to inspection; no cyanosis a nd no clubbing Skin: no rashes, warm and dry Neurologic: moves all extremities and awake; no focal motor deficits Psychiatric: Orientation: alert, oriented x 3 and cooperative Speech: normal rate/rhythm/volume of speech Lymphatic: no lymphedema Results & Data Results & Data ([facility]) Vital Signs (Past 12 Hours) Vital Signs Temp Pulse Resp BP BP Pulse Ox 10/19/19 07:30 161/67 H 10/19/19 07:00 37.0 C 71 19 142/100 H 86 L Laboratory Results 10/19/19 10/19/19 10/19/19 Range/Units 17:56 12:51 12:30 WBC (4.8-10.8) K/uL RBC (4.7-6.1) M/uL Hgb (14.0-18.0) g/dL Hct (42-52) % MCV (80-100) fL MCH (25-34) pg MCHC (32-36) g/dL RDW Std Deviation (36.4-46.3) fL RDW Coeff of Armaan (11.5-14.5) % Plt Count (130-400) K/uL MPV (7.4-10.4) fL ABG pH 7.35 (7.35-7.45) ABG pCO2 33 L (35-46) mmHg ABG pO2 65 L (80-95) mmHg ABG HCO3 18 L (19-24) mmol/L ABG O2 Saturation 90.6 (90-95) % ABG Base Excess -7.0 (-9-1.8) mEq/L Wilbert Test 4 L (Pos) Barometric Pressure 721.5 mm/Hg Oxygen Given P Sodium (136-145) mmol/L Potassium (3.5-5.1) mmol/L Chloride (98-107) mmol/L Carbon Dioxide (21-32) mmol/L Anion Gap (3-11) BUN (7-18) mg/dl Creatinine (0.6-1.4) mg/dl Est Cr Clr Drug Dosing ml/min Est GFR ( Amer) Est GFR (Non-Af Amer) BUN/Creatinine Ratio (10-20) Glucose (70-99) mg/dl POC Glucose 97 86 (70-99) mg/dl Calcium (8.5-10.1) mg/dl Total Bilirubin (0.2-1) mg/dl Direct Bilirubin (0-0.2) mg/dl AST (15-37) U/L ALT (12-78) U/L Alkaline Phosphatase (45-117) U/L Total Protein (6.4-8.2) gm/dl Albumin (3.4-5.0) gm/dl 10/19/19 10/19/19 10/19/19 Range/Units 12:15 12:13 06:20 WBC (4.8-10.8) K/uL RBC (4.7-6.1) M/uL Hgb (14.0-18.0) g/dL Hct (42-52) % MCV (80-100) fL MCH (25-34) pg MCHC (32-36) g/dL RDW Std Deviation (36.4-46.3) fL RDW Coeff of Armaan (11.5-14.5) % Plt Count (130-400) K/uL MPV (7.4-10.4) fL ABG pH (7.35-7.45) ABG pCO2 (35-46) mmHg ABG pO2 (80-95) mmHg ABG HCO3 (19-24) mmol/L ABG O2 Saturation (90-95) % ABG Base Excess (-9-1.8) mEq/L Wilbert Test (Pos) Barometric Pressure mm/Hg Oxygen Given Sodium (136-145) mmol/L Potassium (3.5-5.1) mmol/L Chloride (98-107) mmol/L Carbon Dioxide (21-32) mmol/L Anion Gap (3-11) BUN (7-18) mg/dl Creatinine (0.6-1.4) mg/dl Est Cr Clr Drug Dosing ml/min Est GFR ( Amer) Est GFR (Non-Af Amer) BUN/Creatinine Ratio (10-20) Glucose (70-99) mg/dl POC Glucose 60 L* 64 L* 113 H (70-99) mg/dl Calcium (8.5-10.1) mg/dl Total Bilirubin (0.2-1) mg/dl Direct Bilirubin (0-0.2) mg/dl AST (15-37) U/L ALT (12-78) U/L Alkaline Phosphatase (45-117) U/L Total Protein (6.4-8.2) gm/dl Albumin (3.4-5.0) gm/dl 10/19/19 10/19/19 10/19/19 Range/Units 05:58 05:55 05:55 WBC 19.24 H (4.8-10.8) K/uL RBC 3.77 L (4.7-6.1) M/uL Hgb 11.2 L (14.0-18.0) g/dL Hct 33.4 L (42-52) % MCV 88.6 (80-100) fL MCH 29.7 (25-34) pg MCHC 33.5 (32-36) g/dL RDW Std Deviation 49.6 H (36.4-46.3) fL RDW Coeff of Armaan 15.3 H (11.5-14.5) % Plt Count 137 (130-400) K/uL MPV 10.2 (7.4-10.4) fL ABG pH (7.35-7.45) ABG pCO2 (35-46) mmHg ABG pO2 (80-95) mmHg ABG HCO3 (19-24) mmol/L ABG O2 Saturation (90-95) % ABG Base Excess (-9-1.8) mEq/L Wilbert Test (Pos) Barometric Pressure mm/Hg Oxygen Given Sodium 139 (136-145) mmol/L Potassium 3.2 L (3.5-5.1) mmol/L Chloride 108 H (98-107) mmol/L Carbon Dioxide 22 (21-32) mmol/L Anion Gap 9.0 (3-11) BUN 20 H (7-18) mg/dl Creatinine 1.34 (0.6-1.4) mg/dl Est Cr Clr Drug Dosing 40.9 ml/min Est GFR ( Amer) 56.4 Est GFR (Non-Af Amer) 48.6 BUN/Creatinine Ratio 15.0 (10-20) Glucose 51 L* (70-99) mg/dl POC Glucose 54 L* (70-99) mg/dl Calcium 8.6 (8.5-10.1) mg/dl Total Bilirubin 2.9 H (0.2-1) mg/dl Direct Bilirubin 0.4 H (0-0.2) mg/dl AST 23 (15-37) U/L ALT 24 (12-78) U/L Alkaline Phosphatase 77 (45-117) U/L Total Protein 6.1 L (6.4-8.2) gm/dl Albumin 2.5 L (3.4-5.0) gm/dl 10/18/19 Range/Units 23:59 WBC (4.8-10.8) K/uL RBC (4.7-6.1) M/uL Hgb (14.0-18.0) g/dL Hct (42-52) % MCV (80-100) fL MCH (25-34) pg MCHC (32-36) g/dL RDW Std Deviation (36.4-46.3) fL RDW Coeff of Armaan (11.5-14.5) % Plt Count (130-400) K/uL MPV (7.4-10.4) fL ABG pH (7.35-7.45) ABG pCO2 (35-46) mmHg ABG pO2 (80-95) mmHg ABG HCO3 (19-24) mmol/L ABG O2 Saturation (90-95) % ABG Base Excess (-9-1.8) mEq/L Wilbert Test (Pos) Barometric Pressure mm/Hg Oxygen Given Sodium (136-145) mmol/L Potassium (3.5-5.1) mmol/L Chloride (98-107) mmol/L Carbon Dioxide (21-32) mmol/L Anion Gap (3-11) BUN (7-18) mg/dl Creatinine (0.6-1.4) mg/dl Est Cr Clr Drug Dosing ml/min Est GFR ( Amer) Est GFR (Non-Af Amer) BUN/Creatinine Ratio (10-20) Glucose (70-99) mg/dl POC Glucose 82 (70-99) mg/dl Calcium (8.5-10.1) mg/dl Total Bilirubin (0.2-1) mg/dl Direct Bilirubin (0-0.2) mg/dl AST (15-37) U/L ALT (12-78) U/L Alkaline Phosphatase (45-117) U/L Total Protein (6.4-8.2) gm/dl Albumin (3.4-5.0) gm/dl Diagnostic Findings Chest x-ray image personally reviewed by me and agree with the following report: SINGLE VIEW CHEST CLINICAL HISTORY: Hypoxia. FINDINGS: An AP, portable, upright chest radiograph is obtained No prior studies are available for comparison at the time of dictation. The examination is degraded by portable technique and patient rotation. The patient is status post midline sternotomy. The heart is enlarged noting atherosclerotic calcification of the thoracic aorta. There is pulmonary vascular congestion with mild interstitial edema. Trace pleural effusions are suspected. Bibasilar opacities likely represent atelectasis. No pneumothorax is seen. The skeletal structures are osteopenic. The bony thorax is grossly intact. A right shoulder arthroplasty is in place. IMPRESSION: Cardiomegaly with evidence of congestive failure and mild interstitial edema. ECG Additional Comments: ECG with likely sinus rhythm with first-degree AV block and PVCs, no ischemia PG Care Time/CCT Total # of Minutes Spent Total Time Spent with Patient: Total time spent is greater than 50% in coordination of care (as documented) at patient's floor/unit and/or counseling patient: Prolonged Care Time Prolonged Care Time: Yes Total Prolonged Care Time: 60 Coding Level of Care Code 72071 Subseq Hosp Care Lvl 3 (25 - SIGNIFICANT, SEPARATELY IDENTIFIABLE ) Diagnoses Acute cholecystitis K81.0 Acute respiratory failure with hypoxia J96.01 Hypoglycemia E16.2 Cholelithiasis K80.20 Hypokalemia E87.6 Diabetes E11.9 Coronary artery disease I25.10 Elevated bilirubin R17 Gastric mass K31.89 Hypertension I10 Gout M10.9 Dyslipidemia E78.5 BPH (benign prostatic hyperplasia) N40.0 GERD (gastroesophageal reflux disease) K21.9 CKD (chronic kidney disease) stage 3, GFR 30-59 ml/min N18.3 History of TIA (transient ischemic attack) Z86.73 DVT prophylaxis Z29.9 Additional Codes Prolonged Care Time - Prolonged Care Time: Yes ([id number])
[2019-10-19] MEDS: MoRPHine SULFATE 2 MG/ML CARP IV PRN (13:06)
[2019-10-19 13:07] LABS: HCO3 ABG 18 mmol/L (19-24); Oxygen Saturation ABG 90.6 % (90-95); PCO2 ABG 33 mmHg (35-46); PO2 ABG 65 mmHg (80-95); pH ABG 7.35 (7.35-7.45)
[2019-10-19 13:08] LABS: Allen Test 4 L (Pos)
[2019-10-19] MEDS ORDERED: FUROSEMIDE 40 MG in SYRINGE 0 ML IV ONE (13:15)
--- NOTE | 2019-10-19 13:36 | XRay Report ---
SINGLE VIEW CHEST CLINICAL HISTORY: Hypoxia. FINDINGS: An AP, portable, upright chest radiograph is obtained No prior studies are available for co mparison at the time of dictation. The examination is degraded by portable technique and patient rota tion. The patient is status post midline sternotomy. The heart is enlarged noting atherosclerotic jalyn cification of the thoracic aorta. There is pulmonary vascular congestion with mild interstitial edema . Trace pleural effusions are suspected. Bibasilar opacities likely represent atelectasis. No pneumot horax is seen. The skeletal structures are osteopenic. The bony thorax is grossly intact. A right rissa ulder arthroplasty is in place. IMPRESSION: Cardiomegaly with evidence of congestive failure and mild interstitial edema. ACT 112: Negative or not required by law. Electronically signed by: Lázaro Viveros M.D. 10/19/2019 1:35 PM
--- NOTE | 2019-10-19 14:33 | Pharmacy Report ---
Pharmacy Glycemic Short Note 2 - Date of Service October 19, 2019 - Glycemic Short BSG Results (Last 24 hours): 10/18/19 10/18/19 10/19/19 17:37 23:59 05:55 Glucose 51 L* POC Glucose 148 H 82 10/19/19 10/19/19 10/19/19 05:58 06:20 12:13 Glucose POC Glucose 54 L* 113 H 64 L* 10/19/19 10/19/19 12:15 12:30 Glucose POC Glucose 60 L* 86 OUTPATIENT ANTIDIABETIC REGIMEN: * Trulicity 1.5mg SQ Weekly * Januvia 50mg PO Daily ASSESSMENT: * Patient received 15 units of Lantus last night, resulting in sustained hypoglycemia today, requiring IV dextrose fluids. * Fluids stopped due to volume overload, patient transferred to PCU, starting IV steroids. * Will keep patient on only a CF (CR removed by Dr Villagran, although patient has not received any CR because NPO), and place Lantus on lower dose on scale based on blood sugars. * Close monitoring and adjustments with changing status. PLAN FOR INPATIENT GLYCEMIC CONTROL: * Hold outpatient oral diabetes medications * Basal insulin * Lantus SQ HS * 5 units for BSG < 180mg/dl * 10 units for BSG 180mg/dl or greater * Bolus insulin * NovoLog per scale ACHS or Q6hrs while NPO * Goal Range: Low 110 mg/dL - High 150 mg/dL * Correction Factor: 30 mg/dL/unit * Nutritional / Prandial insulin none PLAN FOR DISCHARGE: * to be determined
[2019-10-19] MEDS: methylPREDNISolone 60 MG in SYRINGE 0 ML IV SCH (15:34)
[2019-10-19] MEDS ORDERED: IMIPENEM/CILASTATIN CONSULT ACTIVE PRN (18:29)
[2019-10-19] MEDS ORDERED: POTASSIUM CHLORIDE 20 MEQ TABCR PO STA (18:36)
[2019-10-19] MEDS: ALBUTEROL 0.083% NEBU SOLN 3 ML VIAL NEB SCH (19:11)
[2019-10-19] MEDS ORDERED: INSULIN GLARGINE SOLOSTAR 100 UNITS/ML 3 ML PEN SC SCH (21:00)
[2019-10-19] MEDS ORDERED: methylPREDNISolone 60 MG in SYRINGE 0 ML IV SCH (21:00)
[2019-10-19] MEDS: IMIPENEM/CILASTATIN SODIUM 300 MG in DEXTROSE 5% 100 ML IV SCH (21:19)
[2019-10-19] MEDS: TAMSULOSIN HCL 0.4 MG CAP PO SCH (22:29)
[2019-10-19] MEDS: MONTELUKAST SODIUM 10 MG TABLET PO SCH (22:29)
[2019-10-20] MEDS: ALBUTEROL 0.083% NEBU SOLN 3 ML VIAL NEB SCH ×4 (00:06→19:39)
[2019-10-20] MEDS: INSULIN ASPART 100 UNITS/ML 3 ML PEN SC SCH ×5 (00:50→22:50)
[2019-10-20] MEDS: methylPREDNISolone 60 MG in SYRINGE 0 ML IV SCH (02:07)
[2019-10-20] MEDS: IMIPENEM/CILASTATIN SODIUM 300 MG in DEXTROSE 5% 100 ML IV SCH ×4 (02:07→19:55)
[2019-10-20 06:20] LABS: Hematocrit (blood only) 34.6 % (42-52); Hemoglobin 11.5 g/dL (14.0-18.0); Mean Corpuscular Hemoglobin 29.8 pg (25-34); Mean Corpuscular Hgb Conc 33.2 g/dL (32-36); Mean Corpuscular Volume 89.6 fL (80-100); Mean Platelet Volume 10.6 fL (7.4-10.4); Platelet Count 132 K/uL (130-400); RDW Coefficient of Variation 15.7 % (11.5-14.5); RDW Standard Deviation 51.5 fL (36.4-46.3); Red Blood Count 3.86 M/uL (4.7-6.1); White Blood Count 13.79 K/uL (4.8-10.8)
[2019-10-20 07:02] LABS: Albumin Level 2.5 gm/dl (3.4-5.0); BUN Creatinine Ratio 18.9 (10-20); Bilirubin Direct 0.6 mg/dl (0-0.2); Bilirubin,Total 2.3 mg/dl (0.2-1); Calcium 8.7 mg/dl (8.5-10.1); Creatinine Clr Calc Pharmacy 29.9 ml/min; Est GFR (African American) 38.7; Est GFR (Non-African American) 33.4; Magnesium 2.3 mg/dl (1.8-2.4); Potassium 3.4 mmol/L (3.5-5.1); Total Protein 6.7 gm/dl (6.4-8.2)
[2019-10-20 07:17] LABS: Beta-Hydroxybutyrate 31.82 mg/dl (0.2-2.81)
[2019-10-20] MEDS ORDERED: POTASSIUM CHLORIDE 20 MEQ TABCR PO STA (07:28)
[2019-10-20] MEDS: POTASSIUM CHLORIDE / WTR 10 MEQ/100 ML PLCT IV SCH ×5 (07:49→22:57)
[2019-10-20] MEDS: SODIUM CHLORIDE 0.9% 1000ML 1,000 ML IV SCH (07:49)
[2019-10-20] MEDS ORDERED: methylPREDNISolone 40 MG in SYRINGE 0 ML IV SCH (09:00)
[2019-10-20] MEDS ORDERED: INSULIN GLARGINE SOLOSTAR 100 UNITS/ML 3 ML PEN SC SCH ×2 (09:00)
[2019-10-20] MEDS: ASPIRIN 81 MG ECTAB PO SCH (09:32)
--- NOTE | 2019-10-20 10:03 | Electrocardiogram Report ---
Test Reason : Blood Pressure : / mmHG Vent. Rate : 094 BPM Atrial Rate : 069 BPM P-R Int : 000 ms QRS Dur : 074 ms QT Int : 346 ms P-R-T Axes : 000 008 053 degrees QTc Int : 432 ms Atrial fibrillation with premature ventricular or aberrantly conducted complexes Abnormal ECG No previous ECGs available Confirmed by Jr Bonilla [id number]) on 10/20/2019 10:03:10 AM Referred By: Jean Collazo Confirmed By:Jr Bonilla
--- NOTE | 2019-10-20 10:15 | XRay Report ---
XR chest 1V portable CLINICAL HISTORY: Hypoxia, pulmonary edema COMPARISON STUDY: 10/19/2019 FINDINGS: There are postsurgical changes of a midline sternotomy. The heart remains enlarged. There i s persistent mild mediastinal widening. There is no lobar consolidation. A small subpulmonic right pl eural effusion is visualized. There is radiographic evidence of mild congestive failure/fluid overloa d.[ IMPRESSION: 1. Cardiomegaly and radiographic evidence of mild congestive failure/fluid overload. 2. Suspected small subpulmonic right pleural effusion 3. Persistent mild mediastinal widening ACT 112: Negative or not required by law. Electronically signed by: Alen Meng M.D. 10/20/2019 10:14 AM
--- NOTE | 2019-10-20 10:57 | Surgery Progress Note ---
Date of Service pt developed SOB yesterday, pt had IV morphine, then the symptoms are gone, denies abdominal pain, no nausea, no vomiting, no fever, October 20, 2019 Assessment & Plan Admission and Anticipated Discharge Date Admission Date: October 17, 2019 Supervising Physician Co-Signing Physician Notes Agree with RAJAT Armijo as above Abd: Soft, Tender RUQ, ND, +BS Continue current therapy and supportive care Defer to surgery regarding cholecystectomy Patient does have history of PUD, therefore, will add Protonix 40 mg IV daily 10/20/2019 10 : 55AM stable, continue treatment, NPO after MN, Dr. Cueva will do lap elsie tomorrow, will F/U Subjective pt seen. transferred from [facility] with RUQ pain. Imaging reveals gallstones with a mildly thickened gallbladder wall. He states he believes he has had this before several years ago which resolved with conservative management. He also has a slight bump in his total bilirubin. It was 1.8 yesterday and 2.1 today. He believes his pain is somewhat improved from yesterday. He does feel weak. Surprisingly he is somewhat hungry and would like something to eat. He also relates that he has lost about 10 pounds in the last several weeks unintentionally. Physical Exam Constitutional: WD/WN, vitals as above well developed and well nourished Eyes: PERRL, conjunctivae normal, anicteric sclerae Neck: trachea midline, no thyromegaly Respiratory: normal respiratory effort, lungs clear to auscultation Cardiovascular: RRR, no murmur, no edema Gastrointestinal (Abdomen): normal bowel sounds, soft, nontender, no hepatosplenomegaly Percussion/Palpation: abdomen soft NT, ND BS + Musculoskeletal: no cyanosis or clubbing, extremities motor strength 5/5 Skin: no rashes, warm and dry Neurologic: awake Psychiatric: Orientation: alert and oriented x 3 Results & Data ([facility]) Vital Signs (Past 12 Hours) Vital Signs Temp Pulse Pulse Resp BP Pulse Ox 10/20/19 07:14 36.7 C 81 18 156/75 H 96 10/20/19 07:10 83 14 97 10/20/19 04:00 36.7 C 77 19 128/60 99 10/20/19 00:06 63 18 96 08/29/20 23:56 36.9 C 58 L 18 112/66 96 10/19/19 23:50 72 Laboratory Results Abnormal lab results 10/19/19 10/19/19 10/19/19 Range/Units 12:13 12:15 12:51 WBC (4.8-10.8) K/uL RBC (4.7-6.1) M/uL Hgb (14.0-18.0) g/dL Hct (42-52) % RDW Std Deviation (36.4-46.3) fL RDW Coeff of Armaan (11.5-14.5) % MPV (7.4-10.4) fL ABG pCO2 33 L (35-46) mmHg ABG pO2 65 L (80-95) mmHg ABG HCO3 18 L (19-24) mmol/L Potassium (3.5-5.1) mmol/L Carbon Dioxide (21-32) mmol/L Anion Gap (3-11) BUN (7-18) mg/dl Creatinine (0.6-1.4) mg/dl Glucose (70-99) mg/dl POC Glucose 64 L* 60 L* (70-99) mg/dl Total Bilirubin (0.2-1) mg/dl Direct Bilirubin (0-0.2) mg/dl Albumin (3.4-5.0) gm/dl Beta-Hydroxybutyric Acd (0.2-2.81) mg/dl 10/19/19 10/20/19 10/20/19 Range/Units 23:54 06:02 06:02 WBC 13.79 H (4.8-10.8) K/uL RBC 3.86 L (4.7-6.1) M/uL Hgb 11.5 L (14.0-18.0) g/dL Hct 34.6 L (42-52) % RDW Std Deviation 51.5 H (36.4-46.3) fL RDW Coeff of Armaan 15.7 H (11.5-14.5) % MPV 10.6 H (7.4-10.4) fL ABG pCO2 (35-46) mmHg ABG pO2 (80-95) mmHg ABG HCO3 (19-24) mmol/L Potassium 3.4 L (3.5-5.1) mmol/L Carbon Dioxide 18 L (21-32) mmol/L Anion Gap 15.0 H (3-11) BUN 35 H D (7-18) mg/dl Creatinine 1.83 H D (0.6-1.4) mg/dl Glucose 318 H* (70-99) mg/dl POC Glucose 165 H (70-99) mg/dl Total Bilirubin 2.3 H (0.2-1) mg/dl Direct Bilirubin 0.6 H (0-0.2) mg/dl Albumin 2.5 L (3.4-5.0) gm/dl Beta-Hydroxybutyric Acd 31.82 H (0.2-2.81) mg/dl 10/20/19 Range/Units 06:05 WBC (4.8-10.8) K/uL RBC (4.7-6.1) M/uL Hgb (14.0-18.0) g/dL Hct (42-52) % RDW Std Deviation (36.4-46.3) fL RDW Coeff of Armaan (11.5-14.5) % MPV (7.4-10.4) fL ABG pCO2 (35-46) mmHg ABG pO2 (80-95) mmHg ABG HCO3 (19-24) mmol/L Potassium (3.5-5.1) mmol/L Carbon Dioxide (21-32) mmol/L Anion Gap (3-11) BUN (7-18) mg/dl Creatinine (0.6-1.4) mg/dl Glucose (70-99) mg/dl POC Glucose 298 H (70-99) mg/dl Total Bilirubin (0.2-1) mg/dl Direct Bilirubin (0-0.2) mg/dl Albumin (3.4-5.0) gm/dl Beta-Hydroxybutyric Acd (0.2-2.81) mg/dl
[2019-10-20] MEDS ORDERED: INSULIN HUMAN REGULAR PER UNIT 7 UNITS in SYRINGE 6.93 ML IV ONE ×2 (12:15→21:45)
[2019-10-20] MEDS ORDERED: INSULIN GLARGINE SOLOSTAR 100 UNITS/ML 3 ML PEN SC ONE (12:15)
[2019-10-20] MEDS: PANTOprazole 40 MG in SYRINGE 0 ML IV SCH (12:25)
--- NOTE | 2019-10-20 13:07 | Pharmacy Report ---
Pharmacy Glycemic Short Note 2 - Date of Service October 20, 2019 - Glycemic Short BSG Results (Last 24 hours): 10/19/19 10/19/19 10/20/19 17:56 23:54 06:02 Glucose 318 H* POC Glucose 97 165 H 10/20/19 10/20/19 10/20/19 06:05 11:21 11:22 Glucose POC Glucose 298 H 350 H* 333 H* OUTPATIENT ANTIDIABETIC REGIMEN: * Trulicity 1.5mg SQ Weekly * Januvia 50mg PO Daily * A1c = 8.5% (10/18/19) ASSESSMENT: 10/19: * Patient received 0 units of insulin yesterday. The majority of his BSGs were below goal. BSG started to climb after being started on solu medrol 60 mg IV q12. Severe hyperglycemia this morning. AM labs revealed elevated anion gap, low CO2, and + ketones. I discussed starting an IV insulin infusion with Hospitalist. It was decided to attempt to manage with SQ basal + bolus inste ad. Repeat BMP ordered for 1600. Solu medrol has been decreased to 40 mg IV q12 and may be stopped this evening. * Lantus was added back this morning and Novolog tightened, however, BSG is continuing to climb with lunch BSG of 350 mg/dL. * I have ordered an IV insulin bolus to be given now plus additional Lantus. Will recheck BSG in two hours. If BSG remains > 250 mg/dL, will start IV insulin infusion 10/18: * Patient received 15 units of Lantus last night, resulting in sustained hypoglycemia today, requiring IV dextrose fluids. * Fluids stopped due to volume overload, patient transferred to PCU, starting IV steroids. * Will keep patient on only a CF (CR removed by Dr Villagran, although patient has not received any CR because NPO), and place Lantus on lower dose on scale based on blood sugars. * Close monitoring and adjustments with changing status. PLAN FOR INPATIENT GLYCEMIC CONTROL: * Hold outpatient oral diabetes medications * Basal insulin - increase * Lantus 10 units SQ this morning + 10 units at lunchtime * Bolus insulin - tighten * NovoLog per scale ACHS or Q6hrs while NPO * Goal Range: Low 110 mg/dL - High 150 mg/dL * Correction Factor: 20 mg/dL/unit * Nutritional / Prandial insulin none * 7 unit IV regular insulin bolus * if repeat BSG is > 250 mg/dL, start IV insulin infusion PLAN FOR DISCHARGE: * to be determined
--- NOTE | 2019-10-20 13:47 | Cardiology Consultation ---
Date of Consultation Patient was transferred from [facility] with concerns for acute cholecystitis. He had elevated white count along with fevers and chills. He was found to have gallstones as well. Surgery was consulted. The plan was for cholecystectomy tomorrow. He underwent MR imaging which did not reveal any evidence of acute cholecystitis with that imaging modality he was found to have a 4 cm mass along the stomach which was new. From a cardiac standpoint he had bypass surgery in 1997 with four-vessel CABG. He follows with cardiology in the [place] area. He denies ever having heart failure he has no angina. He notes he is up and down a single flight of stairs 10-12 times a day without any issues and he will occasionally climb 2 flights of stairs without having to stop nor with any angina. He previously was going to the gym an hour 3 days a week and he walks every day quarter of a mile with his without any angina. He denies any lower extremity edema. He sleeps on one pillow chronically and denies any orthopnea. He is unaware of any palpitations or fluttering or feeling his heart racing. Of note he is in atrial fibrillation on the monitor here which according to him is a new diagnosis. He has had multiple TIAs most recently a month ago where he had difficulty both finding words and speaking words in addition he had facial droop. He is unaware of a previous diagnosis of atrial fibrillation. He was given IV fluids yesterday with that he had acute diastolic heart failure requiring diuretics. In addition he was placed on steroids due to potential underlying lung disease the steroids have raised his blood sugars at this point and with diuresis his creatinine has bumped to 1.8 today. He is unsure of his outpatient creatinine but does note that he has mild renal disease. He is also unaware of his ejection fraction. His cough has improved he denies any presyncope or syncope. Has any bleeding or bruising dark stools or black stools. He denies any further TIA or strokelike symptoms. The rest of a complete review of systems is otherwise negative October 20, 2019 History of Present Illness Attending Physician: Anabel Villagran MD Allergies Allergy/AdvReac Type Severity Reaction Status Date / Time No Known Allergies Allergy Unverified 10/17/19 20:49 Home Medications Home Medications Medication Instructions Recorded Confirmed Type allopurinol 10/17/19 History amlodipine 10/17/19 History atorvastatin 10/17/19 History clopidogrel 10/17/19 History dulaglutide [Trulicity] mg SUBCUT 10/17/19 History famotidine 10/17/19 History fluticasone propionate INTRANASAL 10/17/19 History gabapentin 10/17/19 History montelukast mg 10/17/19 History nitroglycerin mg 10/17/19 History omeprazole 10/17/19 History sitagliptin [Januvia] mg 10/17/19 History tamsulosin mg PO 10/17/19 History Patient History Medical History BPH (benign prostatic hyperplasia) CKD (chronic kidney disease) stage 3, GFR 30-59 ml/min Coronary artery disease Diabetes Dyslipidemia GERD (gastroesophageal reflux disease) Gout History of TIA (transient ischemic attack) Hypertension Social History Smoking Status: Never smoker Hx Alcohol Use: No Hx Substance Use: No Preferred Language: Bel[place]an Communication Ability: Effective Event Technician Required: No Beliefs That Will Affect Care: None Current Living Situation: Spouse Feels Safe at Home: Yes Results & Data ([facility]) Vital Signs (Past 12 Hours) Vital Signs Temp Pulse Resp BP Pulse Ox 10/20/19 11:26 36.8 C 70 18 156/84 H 98 10/20/19 07:14 36.7 C 81 18 156/75 H 96 10/20/19 07:10 83 14 97 10/20/19 04:00 36.7 C 77 19 128/60 99 he is awake alert and oriented x3 he appears mildly short of breath he looks his stated age HEENT: 2+ carotid upstrokes no evidence of carotid bruits jugular venous pressure appeared normal his sclerae anicteric his hearing is mildly reduced Lungs: Faint crackles in the bases bilaterally no rhonchi or wheezing Heart: Irregular rate and rhythm no appreciable murmurs rubs or gallops Abdomen: Soft nontender nondistended positive bowel sounds extremities: No clubbing cyanosis or edema Psychiatric his affect appeared appropriate Neurologic he is awake alert and oriented x3 Impression: 1. Preoperative evaluation prior to possible laparoscopic cholecystectomy due to cholecystitis 2. Acute diastolic heart failure secondary to IV fluids 3. Coronary disease status post coronary bypass grafting x4 in 1997 4. New onset atrial fibrillation which is asymptomatic 5. Markedly elevated chads 2 vascular score 6. Normal carotid upstrokes with a normal carotid ultrasound 7. History of at least 3 TIAs as an outpatient 8. Diabetes mellitus type 2 9. Hypertension 10. Chronic kidney disease stage III At this point I would recommend an echocardiogram to assess his LV function. At least based on his carotid upstroke his LV function is relatively preserved. It will be important to check his diastolic parameters as I am sure he has significant diastolic dysfunction which will increase his risk of heart failure in the perioperative. He can do more than 4 metabolic equivalents as an outpatient therefore the risk of having an acute coronary syndrome or unstable angina with surgery is relatively small. He should be anticoagulated and as we discussed heparin in the short-term and eventually using a novel oral anticoagulant. With his renal dysfunction and his age greater than 80, 2 and half milligrams of apixaban twice daily would be appropriate. He should remain on aspirin. I would not continue his Plavix upon discharge now that we likely have a reason for his strokes. At this point his rate in atrial fibrillation is well controlled and there is no room for beta-blockers. We will have to be judicious with his fluids especially in light of his presumed diastolic dysfunction. The echo will also allow us to rule out significant RV dysfunction, pulmonary pretension, and any associated valvular heart disease. Further recommendations will be forthcoming after his echo is completed. I would prefer that he be tuned up over the next couple of days prior to proceeding with surgery. Assuming his LV function is preserved and he does not have significant valvular heart disease his risk of cardiac complications with surgery is in the range of 4 to 5% including heart attack dying from cardiac causes arrhythmias and congestive heart failure. All this was discussed with the nursing staff as well as Dr. Villagran
[2019-10-20 15:03] LABS: Hematocrit (blood only) 33.3 % (42-52); Hemoglobin 11.4 g/dL (14.0-18.0); Immature Granulocytes # (auto) 0.03 K/uL (0.00-0.02); Immature Granulocytes % (auto) 0.2 %; Lymphocytes # (auto) 0.57 K/uL (1.2-3.4); Lymphocytes % (auto) 3.9 %; Mean Corpuscular Volume 87.6 fL (80-100); Mean Platelet Volume 9.8 fL (7.4-10.4); Monocytes # (auto) 0.39 K/uL (0.11-0.59); Monocytes % (auto) 2.6 %; Neutrophils # (auto) 13.78 K/uL (1.4-6.5); Neutrophils % (auto) 93.3 %; Platelet Count 149 K/uL (130-400); RDW Coefficient of Variation 15.5 % (11.5-14.5); RDW Standard Deviation 49.6 fL (36.4-46.3); White Blood Count 14.77 K/uL (4.8-10.8)
[2019-10-20 15:04] LABS: Mean Corpuscular Hgb Conc 34.2 g/dL (32-36)
[2019-10-20 15:17] LABS: INR 1.2 (0.9-1.1); Partial Thromboplastin Ratio 1.2; Partial Thromboplastin Time 32.8 Seconds (21.0-31.0); Prothrombin Time 12.6 Seconds (9.0-12.0)
[2019-10-20 15:24] LABS: BUN Creatinine Ratio 21.5 (10-20); Calcium 9.3 mg/dl (8.5-10.1); Creatinine Clr Calc Pharmacy 31.6 ml/min; Est GFR (African American) 41.4; Est GFR (Non-African American) 35.7; Potassium 3.4 mmol/L (3.5-5.1)
[2019-10-20] MEDS: MoRPHine SULFATE 2 MG/ML CARP IV PRN (17:38)
--- NOTE | 2019-10-20 18:20 | Nuclear Medicine Report ---
NM hepatobiliary CLINICAL HISTORY: Cholelithiasis. Abdominal pain. Nausea and vomiting. COMPARISON STUDY: MRCP dated 10/17/2019 FINDINGS: The patient was injected with 5.3 mCi of technetium 99 M Choletec. Anterior imaging was per formed. At 1 hour, the gallbladder was not visualized. There is normal passage of activity into small bowel. 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 Additional images out to 90 minutes were acquired. The gallbladder was not visualized. The findings are suggestive of cystic duct obstru ction. IMPRESSION: 1. Nonvisualization of the gallbladder, a finding suggestive of cystic duct obstruction. In a patient with right upper quadrant abdominal pain, the findings are suggestive of acute cholecystitis. Clinic al correlation advocated. ACT 112: Negative or not required by law. Electronically signed by: Alen Meng M.D. 10/20/2019 6:18 PM
[2019-10-20] MEDS: HEPARIN SODIUM/DEXTROSE 25,000 UNITS/500 ML BAG IV SCH (18:32)
[2019-10-20] MEDS: Heparin IV Standard *NO* Bolus IV SCH ×4 (18:32→19:44)
--- NOTE | 2019-10-20 19:16 | Hospitalist Progress Note ---
Date of Service October 20, 2019 Assessment & Plan (1) Acute cholecystitis: Presented with right-sided abdominal pain, nausea/vomiting, with leukocytosis and low-grade fevers here. Found to have cholelithiasis and distended gallbladder on CT scan and ultrasound, although no definite signs of acute cholecystitis on imaging. Total bilirubin mildly elevated but LFTs otherwise normal. He had an MRCP which again showed cholelithiasis with mildly distended gallbladder, no convincing evidence of acute cholecystitis, no CBD dilatation, with an indeterminate 4.1 cm mass lesion along greater curvature of the stomach appearance favors a GIST Abdominal pain is improved, leukocytosis was worsening and had fever on 10/18--> changed abx from Zosyn to Imipenem LFTs stable with mildly elevated total bilirubin HIDA scan obtained on 10/19 which does indeed confirm acute cholecystitis Improved today--> leukocytosis improving (despite being on IV steroids) and fevers gone -continue Imipenem -Follow LFTs, BMP, CBC in the morning -Appreciate general surgery consultation-surgery was on hold originally till Monday to let Plavix "wash out" however with recent respiratory failure, now with RAÚL, hyperglycemia, and new onset Afib, need to delay surgery again till at least Monday -Continue IV Protonix -IV morphine as needed for pain, IV Tylenol as needed for fever -will allow clears diet -restarted gentle IVFs at 50mL/hr but can discontinue on Monday if taking adequa te po fluids so as not to worsen resp failure again -now on heparin gtt for Afib--> will need to be held prior to surgery -if condition deteriorates and no longer surgical candidate, consider transfer for cholecystostomy tube-pt ok with this plana nd would [facility] either [facility] or [facility] for IR (2) Acute respiratory failure with hypoxia: Developed acute respiratory failure with hypoxia on 10/18 likely secondary to pulmonary edema from volume overload Also with diffuse wheezing that responded to bronchodilators-question if has underlying reactive airway disease given history of allergic rhinitis and Singulair use No history of smoking Chest x-ray with pulmonary edema and cardiomegaly ECG with Afib, rate controlled, no evidence of ischemia. He did not have any chest pain associated with the shortness of breath. ABG 7.35/33/65 on 4 L nasal cannula IV fluids were discontinued and IV Lasix 40 mg x 1 was given Albuterol nebulizer was administered as well as 4 L nasal cannula oxygen and he had significant improvement within 1 hour. Put out a great deal of urine and now completely weaned off O2 Unfortunately did develop a bit of RAÚL between the IV lasix and the hyperglycemia; with severe steroid-induced hyperglycemia -dc Solu-Medrol due to hyperglycemia -Continue albuterol nebulizer every 6 hours scheduled -caution with IVFs (3) Atrial fibrillation: Went into Afib during episode of resp distress rates controlled, asymptomatic likely PAF given h/o TIAs over the years without other explanation [id number] score high, started heparin gtt and transition to Eliquis is planned -follow on tele check ECHO Appreciate Cardiology consultation (4) Hypokalemia: Replaced today with IV and p.o. potassium Follow BMP and magnesium in the morning (5) Diabetes: holding home po meds with hypoglycemia initially and now severe hyperglycemia from steroids Pharmacy managing giving basal and bolus insulin consider insulin gtt if not improving -dc IV steroids (6) Coronary artery disease: Patient has a history of a distant CABG including a FLORES he has had no coronary symptoms and has not taken nitro for some time. -Okay to continue aspirin as per surgery He is not on a beta-bess due to bradycardia and his statin is being held while n.p.o. 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 (12) BPH (benign prostatic hyperplasia): Patient reports difficulty with urination at times He is on tamsulosin at home-we will continue this while here despite being n.p.o. so that he does not have any issues with urinary retention (13) GERD (gastroesophageal reflux disease): Continue IV Protonix (14) CKD (chronic kidney disease) stage 3, GFR 30-59 ml/min: Unknown baseline creatinine, but 1.5 here on labs on admission and then improved to 1.34 Now with RAÚL Follow BMP Renally dose medications (15) History of TIA (transient ischemic attack): Reports 3 different episodes of either visual symptoms or slurred speech over the last 20 years, but had the recent episode at least a month ago of right-sided visual blurriness that lasted 1 minute He reports he had an outpatient brain MRI and carotid ultrasound of which I do not have the results Carotid ultrasound ordered here by surgery-normal Now with new onset Afib discovered-likely culprit for TIAs -start heparin gtt as above -Continue aspirin -do NOT restart Plavix on discharge, but rather should go on Eliquis 2.5mg po bid when ok with Surgery (16) Nonsustained ventricular tachycardia: small runs, asymptomatic -replace IV KCl follow BMP, Mag and replace as needed -continue tele monitoring checking ECHO for EF cannot add on beta bess due to rates in the 60s in Afib (17) 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 status was treated with D50 and maintenance D5 fluids while NPO, but then IVFs stopped due to resp failure as above -now with severe hyperglycemia from IV steroids (21) Cholelithiasis: As above (22) DVT prophylaxis: SCDs, heparin gtt Disposition-continued stay on PCU Admission and Anticipated Discharge Date Admission Date: October 17, 2019 Subjective Pt reports feeling better today, would like to be weaned off O2. Denies any SOB, no cough, no chest pain. Prior to this was fairly active. Denies any abd pain. The only thing he c/o was continued LLE sciatica pain that was returning since receiving IV morphine the day prior. He would like to eat some clear liquids today. He denies a h/o Afib in the past but has had 3 TIAs in the past as noted previously. Tele here with Afib, rates well controlled, and several short runs of non-elizalde stained VT. Asymptomatic with this. Discussed case with Cardiology today who recommends heparin gtt for now in setting of upcoming procedure Also discussed care with Surgeon who recommended pt stable for now, will discuss with primary Surgeon on Monday on whether to delay colecystectomy due to ongoing issues. Review of Systems Review of Systems: All systems reviewed & are unremarkable except as noted in HPI & below making urine, had a BM today no nausea Physical Exam Constitutional: WD/WN, vitals as above average body habitus; not lethargic Eyes: + anicteric sclerae ENMT: Ears: no hearing impairment Neck: trachea midline, no thyromegaly Respiratory: normal respiratory effort Auscultation: + crackles (mild bibasilar); no rhonchi and no wheezes Cardiovascular: Rate/Rhythm: regular rate and + irregularly irregular Heart Sounds: no murmur Extremities: no calf tenderness and no edema Chest (Breasts): Chest: normal inspection of chest Gastrointestinal (Abdomen): normal bowel sounds, soft, nontender, no hepat osplenomegaly Musculoskeletal: Extremities: extremities normal to inspection; no cyanosis and no clubbing Skin: no rashes, warm and dry Neurologic: moves all extremities and awake; no focal motor deficits Psychiatric: A+Ox3, euthymic affect Lymphatic: no lymphedema Results & Data Results & Data ([facility]) Vital Signs (Past 12 Hours) Vital Signs Temp Pulse Resp BP BP Pulse Ox 10/20/19 15:03 36.6 C 71 20 152/71 H 97 10/20/19 14:47 55 L 14 96 10/20/19 11:26 36.8 C 70 18 156/84 H 98 Laboratory Results 10/20/19 10/20/19 10/20/19 Range/Units 21:28 21:27 18:28 WBC (4.8-10.8) K/uL RBC (4.7-6.1) M/uL Hgb (14.0-18.0) g/dL Hct (42-52) % MCV (80-100) fL MCH (25-34) pg MCHC (32-36) g/dL RDW Std Deviation (36.4-46.3) fL RDW Coeff of Armaan (11.5-14.5) % Plt Count (130-400) K/uL MPV (7.4-10.4) fL Immature Gran % (Auto) % Neut % (Auto) % Lymph % (Auto) % Stokes % (Auto) % Eos % (Auto) % Baso % (Auto) % Neut # (Auto) (1.4-6.5) K/uL Lymph # (Auto) (1.2-3.4) K/uL Stokes # (Auto) (0.11-0.59) K/uL Eos # (Auto) (0-0.5) K/uL Baso # (Auto) (0-0.2) K/uL Immature Gran # (Auto) (0.00-0.02) K/uL PT (9.0-12.0) Seconds INR (0.9-1.1) APTT (21.0-31.0) Seconds PTT Ratio Sodium (136-145) mmol/L Potassium (3.5-5.1) mmol/L Chloride (98-107) mmol/L Carbon Dioxide (21-32) mmol/L Anion Gap (3-11) BUN (7-18) mg/dl Creatinine (0.6-1.4) mg/dl Est Cr Clr Drug Dosing ml/min Est GFR ( Amer) Est GFR (Non-Af Amer) BUN/Creatinine Ratio (10-20) Glucose (70-99) mg/dl POC Glucose 351 H* 349 H* 243 H (70-99) mg/dl Calcium (8.5-10.1) mg/dl Magnesium (1.8-2.4) mg/dl Total Bilirubin (0.2-1) mg/dl Direct Bilirubin (0-0.2) mg/dl AST (15-37) U/L ALT (12-78) U/L Alkaline Phosphatase (45-117) U/L Total Protein (6.4-8.2) gm/dl Albumin (3.4-5.0) gm/dl Beta-Hydroxybutyric Acd (0.2-2.81) mg/dl 10/20/19 10/20/19 10/20/19 Range/Units 15:02 14:55 14:55 WBC 14.77 H (4.8-10.8) K/uL RBC 3.80 L (4.7-6.1) M/uL Hgb 11.4 L (14.0-18.0) g/dL Hct 33.3 L (42-52) % MCV 87.6 (80-100) fL MCH 30.0 (25-34) pg MCHC 34.2 (32-36) g/dL RDW Std Deviation 49.6 H (36.4-46.3) fL RDW Coeff of Armaan 15.5 H (11.5-14.5) % Plt Count 149 (130-400) K/uL MPV 9.8 (7.4-10.4) fL Immature Gran % (Auto) 0.2 % Neut % (Auto) 93.3 % Lymph % (Auto) 3.9 % Stokes % (Auto) 2.6 % Eos % (Auto) 0.0 % Baso % (Auto) 0.0 % Neut # (Auto) 13.78 H (1.4-6.5) K/uL Lymph # (Auto) 0.57 L (1.2-3.4) K/uL Stokes # (Auto) 0.39 (0.11-0.59) K/uL Eos # (Auto) 0.00 (0-0.5) K/uL Baso # (Auto) 0.00 (0-0.2) K/uL Immature Gran # (Auto) 0.03 H (0.00-0.02) K/uL PT 12.6 H (9.0-12.0) Seconds INR 1.2 H (0.9-1.1) APTT 32.8 H (21.0-31.0) Seconds PTT Ratio 1.2 Sodium (136-145) mmol/L Potassium (3.5-5.1) mmol/L Chloride (98-107) mmol/L Carbon Dioxide (21-32) mmol/L Anion Gap (3-11) BUN (7-18) mg/dl Creatinine (0.6-1.4) mg/dl Est Cr Clr Drug Dosing ml/min Est GFR ( Amer) Est GFR (Non-Af Amer) BUN/Creatinine Ratio (10-20) Glucose (70-99) mg/dl POC Glucose 241 H (70-99) mg/dl Calcium (8.5-10.1) mg/dl Magnesium (1.8-2.4) mg/dl Total Bilirubin (0.2-1) mg/dl Direct Bilirubin (0-0.2) mg/dl AST (15-37) U/L ALT (12-78) U/L Alkaline Phosphatase (45-117) U/L Total Protein (6.4-8.2) gm/dl Albumin (3.4-5.0) gm/dl Beta-Hydroxybutyric Acd (0.2-2.81) mg/dl 10/20/19 10/20/19 10/20/19 Range/Units 14:55 11:22 11:21 WBC (4.8-10.8) K/uL RBC (4.7-6.1) M/uL Hgb (14.0-18.0) g/dL Hct (42-52) % MCV (80-100) fL MCH (25-34) pg MCHC (32-36) g/dL RDW Std Deviation (36.4-46.3) fL RDW Coeff of Armaan (11.5-14.5) % Plt Count (130-400) K/uL MPV (7.4-10.4) fL Immature Gran % (Auto) % Neut % (Auto) % Lymph % (Auto) % Stokes % (Auto) % Eos % (Auto) % Baso % (Auto) % Neut # (Auto) (1.4-6.5) K/uL Lymph # (Auto) (1.2-3.4) K/uL Stokes # (Auto) (0.11-0.59) K/uL Eos # (Auto) (0-0.5) K/uL Baso # (Auto) (0-0.2) K/uL Immature Gran # (Auto) (0.00-0.02) K/uL PT (9.0-12.0) Seconds INR (0.9-1.1) APTT (21.0-31.0) Seconds PTT Ratio Sodium 139 (136-145) mmol/L Potassium 3.4 L (3.5-5.1) mmol/L Chloride 107 (98-107) mmol/L Carbon Dioxide 21 (21-32) mmol/L Anion Gap 12.0 H (3-11) BUN 37 H (7-18) mg/dl Creatinine 1.73 H (0.6-1.4) mg/dl Est Cr Clr Drug Dosing 31.6 ml/min Est GFR ( Amer) 41.4 Est GFR (Non-Af Amer) 35.7 BUN/Creatinine Ratio 21.5 H (10-20) Glucose 251 H (70-99) mg/dl POC Glucose 333 H* 350 H* (70-99) mg/dl Calcium 9.3 (8.5-10.1) mg/dl Magnesium (1.8-2.4) mg/dl Total Bilirubin (0.2-1) mg/dl Direct Bilirubin (0-0.2) mg/dl AST (15-37) U/L ALT (12-78) U/L Alkaline Phosphatase (45-117) U/L Total Protein (6.4-8.2) gm/dl Albumin (3.4-5.0) gm/dl Beta-Hydroxybutyric Acd (0.2-2.81) mg/dl 10/20/19 10/20/19 10/20/19 Range/Units 06:05 06:02 06:02 WBC 13.79 H (4.8-10.8) K/uL RBC 3.86 L (4.7-6.1) M/uL Hgb 11.5 L (14.0-18.0) g/dL Hct 34.6 L (42-52) % MCV 89.6 (80-100) fL MCH 29.8 (25-34) pg MCHC 33.2 (32-36) g/dL RDW Std Deviation 51.5 H (36.4-46.3) fL RDW Coeff of Armaan 15.7 H (11.5-14.5) % Plt Count 132 (130-400) K/uL MPV 10.6 H (7.4-10.4) fL Immature Gran % (Auto) % Neut % (Auto) % Lymph % (Auto) % Stokes % (Auto) % Eos % (Auto) % Baso % (Auto) % Neut # (Auto) (1.4-6.5) K/uL Lymph # (Auto) (1.2-3.4) K/uL Stokes # (Auto) (0.11-0.59) K/uL Eos # (Auto) (0-0.5) K/uL Baso # (Auto) (0-0.2) K/uL Immature Gran # (Auto) (0.00-0.02) K/uL PT (9.0-12.0) Seconds INR (0.9-1.1) APTT (21.0-31.0) Seconds PTT Ratio Sodium 138 (136-145) mmol/L Potassium 3.4 L (3.5-5.1) mmol/L Chloride 105 (98-107) mmol/L Carbon Dioxide 18 L (21-32) mmol/L Anion Gap 15.0 H (3-11) BUN 35 H D (7-18) mg/dl Creatinine 1.83 H D (0.6-1.4) mg/dl Est Cr Clr Drug Dosing 29.9 ml/min Est GFR ( Amer) 38.7 Est GFR (Non-Af Amer) 33.4 BUN/Creatinine Ratio 18.9 (10-20) Glucose 318 H* (70-99) mg/dl POC Glucose 298 H (70-99) mg/dl Calcium 8.7 (8.5-10.1) mg/dl Magnesium 2.3 (1.8-2.4) mg/dl Total Bilirubin 2.3 H (0.2-1) mg/dl Direct Bilirubin 0.6 H (0-0.2) mg/dl AST 28 (15-37) U/L ALT 35 (12-78) U/L Alkaline Phosphatase 84 (45-117) U/L Total Protein 6.7 (6.4-8.2) gm/dl Albumin 2.5 L (3.4-5.0) gm/dl Beta-Hydroxybutyric Acd 31.82 H (0.2-2.81) mg/dl PG Care Time/CCT Total # of Minutes Spent Total Time Spent with Patient: Total time spent is greater than 50% in coordination of care (as documented) at patient's floor/unit and/or counseling patient: Coding Level of Care Code 90405 Subseq Hosp Care Lvl 3 Diagnoses Acute cholecystitis K81.0 Acute respiratory failure with hypoxia J96.01 Atrial fibrillation I48.91 Hypokalemia E87.6 Diabetes E11.9 Coronary artery disease I25.10 Elevated bilirubin R17 Gastric mass K31.89 Hypertension I10 Gout M10.9 Dyslipidemia E78.5 BPH (benign prostatic hyperplasia) N40.0 GERD (gastroesophageal reflux disease) K21.9 CKD (chronic kidney disease) stage 3, GFR 30-59 ml/min N18.3 History of TIA (transient ischemic attack) Z86.73 Nonsustained ventricular tachycardia I47.2 RAÚL (acute kidney injury) N17.9 Metabolic acidosis E87.2 Acute diastolic (congestive) heart failure I50.31 Hypoglycemia E16.2 Cholelithiasis K80.20 DVT prophylaxis Z29.9
[2019-10-20] MEDS: MONTELUKAST SODIUM 10 MG TABLET PO SCH (19:59)
[2019-10-20] MEDS: TAMSULOSIN HCL 0.4 MG CAP PO SCH (20:02)
[2019-10-21] MEDS: POTASSIUM CHLORIDE / WTR 10 MEQ/100 ML PLCT IV SCH (00:17)
[2019-10-21 01:03] LABS: Partial Thromboplastin Ratio 2.3
[2019-10-21 01:08] LABS: Partial Thromboplastin Time 64.2 Seconds (21.0-31.0)
[2019-10-21] MEDS: INSULIN ASPART 100 UNITS/ML 3 ML PEN SC SCH ×6 (01:10→20:15)
[2019-10-21] MEDS: ALBUTEROL 0.083% NEBU SOLN 3 ML VIAL NEB SCH ×2 (02:27→07:10)
[2019-10-21] MEDS: IMIPENEM/CILASTATIN SODIUM 300 MG in DEXTROSE 5% 100 ML IV SCH ×4 (02:27→20:13)
[2019-10-21] MEDS: SODIUM CHLORIDE 0.9% 1000ML 1,000 ML IV SCH (05:50)
[2019-10-21 07:07] LABS: Hematocrit (blood only) 30.7 % (42-52); Hemoglobin 10.7 g/dL (14.0-18.0); Mean Corpuscular Hemoglobin 30.1 pg (25-34); Mean Corpuscular Hgb Conc 34.9 g/dL (32-36); Mean Corpuscular Volume 86.2 fL (80-100); Mean Platelet Volume 10.3 fL (7.4-10.4); Platelet Count 153 K/uL (130-400); RDW Coefficient of Variation 15.6 % (11.5-14.5); RDW Standard Deviation 49.7 fL (36.4-46.3); Red Blood Count 3.56 M/uL (4.7-6.1); White Blood Count 15.85 K/uL (4.8-10.8)
[2019-10-21 07:53] LABS: Albumin Level 2.4 gm/dl (3.4-5.0); Bilirubin Direct 0.4 mg/dl (0-0.2); Bilirubin,Total 1.7 mg/dl (0.2-1); Magnesium 2.2 mg/dl (1.8-2.4); Total Protein 6.4 gm/dl (6.4-8.2)
[2019-10-21] MEDS: ASPIRIN 81 MG ECTAB PO SCH (07:53)
--- NOTE | 2019-10-21 08:23 | Pharmacy Report ---
Pharmacy Glycemic Short Note 2 - Date of Service October 21, 2019 - Glycemic Short BSG Results (Last 24 hours): 10/20/19 10/20/19 10/20/19 11:21 11:22 14:55 Glucose 251 H POC Glucose 350 H* 333 H* 10/20/19 10/20/19 10/20/19 15:02 18:28 21:27 Glucose POC Glucose 241 H 243 H 349 H* 10/20/19 10/21/19 10/21/19 21:28 01:10 04:16 Glucose POC Glucose 351 H* 201 H 145 H 10/21/19 06:53 Glucose POC Glucose 157 H OUTPATIENT ANTIDIABETIC REGIMEN: * Trulicity 1.5mg SQ Weekly * Januvia 50mg PO Daily * A1c = 8.5% (10/18/19) ASSESSMENT: 10/20: * Patient received 61 units of insulin yesterday * 20 units of basal, 34 units of prandial/correctional, and 7 units of IV insulin * BSGs of 298, 350, 243, 351, and 201 mg/dL yesterday * Fasting BSG much improved this morning at 157 mg/dL * Clear liquid diet initiated yesterday - carb ratio of 7 added (will tighten slightly today) * Plan appeared to be possible cholecystectomy today, but this has been postponed until tomorrow (NPO after midnight) * Continues on heparin gtt, NS @ 50 mL/hr, and Primaxin q6h 10/19: * Patient received 0 units of insulin yesterday. The majority of his BSGs were below goal. BSG started to climb after being started on solu medrol 60 mg IV q12. Severe hyperglycemia this morning. AM labs revealed elevated anion gap, low CO2, and + ketones. I discussed starting an IV insulin infusion with Ho spitalist. It was decided to attempt to manage with SQ basal + bolus instead. Repeat BMP ordered for 1600. Solu medrol has been decreased to 40 mg IV q12 and may be stopped this evening. * Lantus was added back this morning and Novolog tightened, however, BSG is continuing to climb with lunch BSG of 350 mg/dL. * I have ordered an IV insulin bolus to be given now plus additional Lantus. Will recheck BSG in two hours. If BSG remains > 250 mg/dL, will start IV insulin infusion 10/18: * Patient received 15 units of Lantus last night, resulting in sustained hypoglycemia today, requiring IV dextrose fluids. * Fluids stopped due to volume overload, patient transferred to PCU, starting IV steroids. * Will keep patient on only a CF (CR removed by Dr Villagran, although patient has not received any CR because NPO), and place Lantus on lower dose on scale based on blood sugars. * Close monitoring and adjustments with changing status. PLAN FOR INPATIENT GLYCEMIC CONTROL: * Hold outpatient oral diabetes medications * Basal insulin - * Lantus 15 units SC this morning * Will add 5 unit dose with lunch * NPO after midnight - will reassess basal dose in AM * Bolus insulin - tighten carb ratio * NovoLog per scale ACHS or Q6hrs while NPO * Goal Range: Low 110 mg/dL - High 150 mg/dL * Correction Factor: 20 mg/dL/unit * Nutritional / Prandial insulin per carb ratio of 1 unit per 6 grams CHO consumed PLAN FOR DISCHARGE: * to be determined
[2019-10-21] MEDS ORDERED: ALBUTEROL 0.083% NEBU SOLN 3 ML VIAL NEB PRN (08:26)
[2019-10-21] MEDS ORDERED: INSULIN GLARGINE SOLOSTAR 100 UNITS/ML 3 ML PEN SC ONE ×2 (08:30→12:00)
--- NOTE | 2019-10-21 09:00 | Cardiology Progress Note ---
Date of Service October 21, 2019 Assessment & Plan Admission and Anticipated Discharge Date Admission Date: October 17, 2019 Subjective He is feeling well this morning. He denies any fevers or chills. Denies any chest pain or chest pressure. Denies any shortness of breath. Denies any palpitations or fluttering. He has no lower extremity edema. He is wondering when he and if he is going to have surgery. He has a number of significant questions. He has left leg pain and hip pain he has no right upper quadrant pain. He feels like he is at his baseline. Results & Data ([facility]) Vital Signs (Past 12 Hours) Vital Signs Temp Pulse Pulse Resp BP Pulse Ox 10/21/19 08:00 36.7 C 78 20 154/72 H 97 10/21/19 07:10 67 16 97 10/21/19 03:31 36.5 C 58 L 22 113/65 95 10/21/19 00:15 36.6 C 72 18 125/66 93 10/20/19 23:00 72 he is awake alert and oriented x3 he appears mildly short of breath he looks his stated age HEENT: 2+ carotid upstrokes no evidence of carotid bruits jugular venous pressure appeared normal his sclerae anicteric his hearing is mildly reduced Lungs: Clear to auscultation bilaterally no rhonchi or wheezing Heart: Irregular rate and rhythm no appreciable murmurs rubs or gallops Abdomen: Soft nontender nondistended positive bowel sounds extremities: No clubbing cyanosis or edema Psychiatric his affect appeared appropriate Neurologic he is awake alert and oriented x3 Impression: 1. Preoperative evaluation prior to possible laparoscopic cholecystectomy due to acute cholecystitis confirmed by HIDA scan 2. Acute diastolic heart failure secondary to IV fluids --resolved 2B. Normal LV function with type II diastolic dysfunction and mild to moderate mitral and tricuspid regurgitation 3. Coronary disease status post coronary bypass grafting x4 in 1997 4. New onset atrial fibrillation which is asymptomatic 5. Markedly elevated chads 2 vascular score 6. Normal carotid upstrokes with a normal carotid ultrasound 7. History of at least 3 TIAs as an outpatient 8. Diabetes mellitus type 2 9. Hypertension 10. Chronic kidney disease stage III Dysfunction capacity as an outpatient is greater than 4 metabolic equivalents. Clinically his heart failure seems to be stable and was related to the IV fluids that he received upon admission. If his creatinine is near baseline which we think is approximately 1.5 then from my standpoint he can proceed with surgery. I would be very judicious with his fluids in the perioperative period as we proven even with small amounts of fluids he can go into heart failure. He likely will need diuretics post surgery due to third spacing. I believe his risk of cardiac complications is in the range of 4 to 5% this includes heart attack, arrhythmia (he is already in atrial fibrillation), dying from cardiac causes and heart failure. His chads 2 Vasc score is markedly elevated. Postoperatively he should be restarted on anticoagulation when it is safe from a bleeding perspective. Given his age and creatinine apixaban 2-1/2 mg twice daily is appropriate. On telemetry his rate is well controlled on no AV abigail blockers.
--- NOTE | 2019-10-21 09:45 | Surgery Progress Note ---
Date of Service October 21, 2019 Assessment & Plan (1) Cholelithiasis: Reviewed patients events from over the weekend; Cardiology has been consulted WBC: 15, Tbili: 1.8, Cr. 1.4 This AM patient appears well; he is saturating well on room air; denies CP/SOB or abdominal pain HIDA scan yesterday shows concern for acute cholecystitis Cardiology okay with proceeding with surgical intervention pending Cr which returned at 1.4. Echo obtained Continue IV abx We will add patient on to the schedule for laparoscopic cholecystectomy tomorrow and biopsy of gastric mass; NPO at midnight as above/pt seen. creatinine at baseline now...per cardiology and medicine can proceed with surgery. will plan on lap elsie + gastric mass bx tomorrow. Admission and Anticipated Discharge Date Admission Date: October 17, 2019 Subjective Patient offers no complaints this AM. Denies any shortness of breath, chest pain, abdominal pain, nausea/vomiting. Having + bowel function. Says he walked a lap around the unit this AM. Has been on clear liquids of which he is tolerating. Asking when his gallbladder will be removed. Physical Exam Physical Exam: awake/alert, sitting up in chair Respiratory: normal respiratory effort on room air Gastrointestinal (Abdomen): Inspection/Auscultation: abdomen not distended Percussion/Palpation: abdomen soft; abdomen nontender Results & Data ([facility]) Vital Signs (Past 12 Hours) Vital Signs Temp Pulse Pulse Resp BP Pulse Ox 10/21/19 08:00 36.7 C 78 20 154/72 H 97 10/21/19 07:10 67 16 97 10/21/19 03:31 36.5 C 58 L 22 113/65 95 10/21/19 00:15 36.6 C 72 18 125/66 93 10/20/19 23:00 72 PG Care Time/CCT Total # of Minutes Spent Total Time Spent with Patient: Total time spent is greater than 50% in coordination of care (as documented) at patient's floor/unit and/or counseling patient: Coding Level of Care Code 47071 Subseq Hosp Care Lvl 1 Diagnoses Cholelithiasis K80.20
[2019-10-21] MEDS: HEPARIN SODIUM/DEXTROSE 25,000 UNITS/500 ML BAG IV SCH ×2 (10:03→15:27)
--- NOTE | 2019-10-21 10:12 | Hospitalist Progress Note ---
Date of Service October 21, 2019 Assessment & Plan (1) Acute cholecystitis: Presented with right-sided abdominal pain, nausea/vomiting, with leukocytosis and low-grade fevers here. Found to have cholelithiasis and distended gallbladder on CT scan and ultrasound, although no definite signs of acute cholecystitis on imaging. Total bilirubin mildly elevated but LFTs otherwise normal. He had an MRCP which again showed cholelithiasis with mildly distended gallbladder, no convincing evidence of acute cholecystitis, no CBD dilatation, with an indeterminate 4.1 cm mass lesion along greater curvature of the stomach appearance favors a GIST WBC 15k, no fever, continue Imipenem HIDA scan obtained on 10/19 which does indeed confirm acute cholecystitis plan for OR tomorrow for lap elsie, possible biopsy of gastric tumor/lesion -Continue IV Protonix -IV morphine as needed for pain, IV Tylenol as needed for fever NPO after midnight tonight (2) Acute respiratory failure with hypoxia: Developed acute respiratory failure with hypoxia on 10/18 likely secondary to pulmonary edema from volume overload Also with diffuse wheezing that responded to bronchodilators-question if has underlying reactive airway disease given history of allergic rhinitis and Singulair use No history of smoking Chest x-ray with pulmonary edema and cardiomegaly resolved with Lasix IV cautious use of IV fluids, right now at 50cc/hr, would not continue them long after surgery (3) Atrial fibrillation: Went into Afib during episode of resp distress rates controlled, asymptomatic likely PAF given h/o TIAs over the years without other explanation [id number] score high, started heparin gtt, hold heparin drip at midnight Appreciate Cardiology consultation plan for Eliquis on discharge (4) Hypokalemia: normal today at 4.1 (5) Diabetes: holding home po meds with hypoglycemia initially and then severe hyperglycemia from steroids Pharmacy managing giving basal and bolus insulin consider insulin gtt if not improving but would defer to pharmacy he will be NPO after midnight (6) Coronary artery disease: Patient has a history of a distant CABG including a FLORES he has had no coronary symptoms and has not taken nitro for some time. -Okay to continue aspirin as per surgery He is not on a beta-bess due to bradycardia and his statin is being held while n.p.o. 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 (12) BPH (benign prostatic hyperplasia): Patient reports difficulty with urination at times He is on tamsulosin at home-we will continue this while here despite being n.p.o. so that he does not have any issues with urinary retention (13) GERD (gastroesophageal reflux disease): Continue IV Protonix (14) CKD (chronic kidney disease) stage 3, GFR 30-59 ml/min: Unknown baseline creatinine, but 1.5 here on labs on admission and then improved to 1.34 Now with RAÚL Cr down to 1.4 today, gentle fluids (15) History of TIA (transient ischemic attack): Reports 3 different episodes of either visual symptoms or slurred speech over the last 20 years, but had the recent episode at least a month ago of right-sided visual blurriness that lasted 1 minute He reports he had an outpatient brain MRI and carotid ultrasound of which I do not have the results Carotid ultrasound ordered here by surgery-normal Now with new onset Afib discovered-likely culprit for TIAs -start heparin gtt as above -Continue aspirin -do NOT restart Plavix on discharge, but rather should go on Eliquis 2.5mg po bid when ok with Surgery (16) Nonsustained ventricular tachycardia: small runs, asymptomatic -replace IV KCl follow BMP, Mag and replace as needed -continue tele monitoring checking ECHO for EF cannot add on beta bess due to rates in the 60s in Afib (17) RAÚL (acute kidney injury): paralegals up to 1.8 after Lasix for diuresis down to 1.4 today after holding diuretics repeat tomorrow (18) Metabolic acidosis: resolved (19) Acute diastolic (congestive) heart failure: as above, caused resp failure, now resolved with one dose IV lasix (20) Hypoglycemia: With blood glucose low due to n.p.o. status was treated with D50 and maintenance D5 fluids while NPO, but then IVFs stopped due to resp failure as above -now with severe hyperglycemia from IV steroids sugars very labile will now be NPO for surgery continue Novolog SS (21) Cholelithiasis: As above (22) DVT prophylaxis: SCDs, heparin gtt Disposition-continued stay on PCU Admission and Anticipated Discharge Date Admission Date: October 17, 2019 Subjective patient feels well, he has no pain in his RUQ, even with deep palpation d/w general surgery, plan for OR tomorrow if they can get time discussed with Dr. Bonilla, he is optimized medically, has intermediate risk for cardiac complications reviewed labs, Cr down to 1.4, his baseline vitals stable, on room air, no respiratory distress WBC up at 15k and Hb is 10.7 sugars elevated despite doses of Lantus and Novolog SS, pharmacy was consulted at time of admission for management Review of Systems Review of Systems: All systems reviewed & are unremarkable except as noted in Subjective Constitutional: + weakness; no fever, no chills, no sweats and no fatigue Respiratory: no cough and no dyspnea Cardiovascular: no chest pain and no edema Gastrointestinal: no abdominal pain, no nausea, no vomiting, no constipation and no diarrhea/loose stools Physical Exam Constitutional: WD/WN, vitals as above Eyes: PERRL, conjunctivae normal, anicteric sclerae ENMT: external ear and nose normal, oropharynx normal Neck: trachea midline, no thyromegaly Respiratory: normal respiratory effort, lungs clear to auscultation Cardiovascular: Rate/Rhythm: regular rate and + irregularly irregular Heart Sounds: normal S1 and normal S2; no murmur Vessels: no JVD Extremities: normal capillary refill; no edema Gastrointestinal (Abdomen): normal bowel sounds, soft, nontender, no hepatosplenomegaly Musculoskeletal: no cyanosis or clubbing, extremities motor strength 5/5 Skin: no rashes, warm and dry Neurologic: patellar DTR's 2+ bilat, sensation intact and PERRL, EOMI, accommodation nl, no face palsy, no dysarthria Psychiatric: A+Ox3, euthymic affect Lymphatic: no cervical or axillary lymphadenopathy Results & Data Results & Data ([facility]) Vital Signs (Past 12 Hours) Vital Signs Temp Pulse Pulse Resp BP Pulse Ox 10/21/19 08:00 36.7 C 78 20 154/72 H 97 10/21/19 07:10 67 16 97 10/21/19 07:00 60 10/21/19 03:31 36.5 C 58 L 22 113/65 95 10/21/19 00:15 36.6 C 72 18 125/66 93 10/20/19 23:00 72 Laboratory Results Laboratory Results - last 24 hr 10/20/19 10/20/19 10/20/19 18:28 21:27 21:28 WBC RBC Hgb Hct MCV MCH MCHC RDW Std Deviation RDW Coeff of Armaan Plt Count MPV APTT PTT Ratio Sodium Potassium Chloride Carbon Dioxide Anion Gap BUN Creatinine Est Cr Clr Drug Dosing Est GFR ( Amer) Est GFR (Non-Af Amer) BUN/Creatinine Ratio Glucose POC Glucose 243 H 349 H* 351 H* Calcium Magnesium Total Bilirubin Direct Bilirubin AST ALT Alkaline Phosphatase Total Protein Albumin Beta-Hydroxybutyric Acd 10/21/19 10/21/19 10/21/19 00:30 01:10 04:16 WBC RBC Hgb Hct MCV MCH MCHC RDW Std Deviation RDW Coeff of Armaan Plt Count MPV APTT 64.2 H* PTT Ratio 2.3 Sodium Potassium Chloride Carbon Dioxide Anion Gap BUN Creatinine Est Cr Clr Drug Dosing Est GFR ( Amer) Est GFR (Non-Af Amer) BUN/Creatinine Ratio Glucose POC Glucose 201 H 145 H Calcium Magnesium Total Bilirubin Direct Bilirubin AST ALT Alkaline Phosphatase Total Protein Albumin Beta-Hydroxybutyric Acd 10/21/19 10/21/19 10/21/19 06:31 06:31 06:53 WBC 15.85 H RBC 3.56 L Hgb 10.7 L Hct 30.7 L MCV 86.2 MCH 30.1 MCHC 34.9 RDW Std Deviation 49.7 H RDW Coeff of Armaan 15.6 H Plt Count 153 MPV 10.3 APTT PTT Ratio Sodium Potassium Chloride Carbon Dioxide Anion Gap BUN Creatinine Est Cr Clr Drug Dosing Est GFR ( Amer) Est GFR (Non-Af Amer) BUN/Creatinine Ratio Glucose POC Glucose 157 H Calcium Magnesium 2.2 Total Bilirubin 1.7 H Direct Bilirubin 0.4 H AST 34 ALT 40 Alkaline Phosphatase 81 Total Protein 6.4 Albumin 2.4 L Beta-Hydroxybutyric Acd 10/21/19 10/21/19 09:52 11:35 WBC RBC Hgb Hct MCV MCH MCHC RDW Std Deviation RDW Coeff of Armaan Plt Count MPV APTT PTT Ratio Sodium 135 L Potassium 4.1 D Chloride 106 Carbon Dioxide 20 L Anion Gap 9.0 BUN 35 H Creatinine 1.43 H D Est Cr Clr Drug Dosing 38.8 Est GFR ( Amer) 52.1 Est GFR (Non-Af Amer) 45.0 BUN/Creatinine Ratio 24.5 H Glucose 311 H* POC Glucose 283 H Calcium 8.9 Magnesium Total Bilirubin Direct Bilirubin AST ALT Alkaline Phosphatase Total Protein Albumin Beta-Hydroxybutyric Acd 12.13 H Medications Administered Current Inpatient Medications Albuterol (Albuterol 0.083% Nebu Soln 3 Ml Vial) 2.5 mg NEB Q6R PRN PRN Reason: Shortness Of Breath Or Wheezing Stop: 11/18/19 18:59 Aspirin (Aspirin 81 Mg Ectab) 81 mg PO QAM ADEBAYO Stop: 11/17/19 11:59 Last Admin: 10/21/19 07:53 Dose: 81 mg Documented by: Dextrose (Dextrose 50% 50 Ml Syringe) 25 - 50 ml IV UD PRN; Protocol PRN Reason: Hypoglycemia Protocol Stop: 11/16/19 18:42 Last Admin: 10/19/19 12:17 Dose: 25 ml Documented by: Glucagon (Glucagon For Inj 1 Mg Vial) 1 mg SQ UD PRN; Protocol PRN Reason: Hypoglycemia Protocol Stop: 11/16/19 18:42 Glucose (Glucose 10 Tabs/Tube) 4 - 8 tabs PO UD PRN; Protocol PRN Reason: Hypoglycemia Protocol Stop: 11/16/19 18:42 Glucose (Glucose 40% Gel 15 Gm Tube) 15 - 30 gm PO UD PRN; Protocol PRN Reason: Hypoglycemia Protocol Stop: 11/16/19 18:42 Hydralazine HCl (Hydralazine Hcl 20 Mg/Ml Vial) 10 mg IV Q8 PRN PRN Reason: Blood Pressure - High Stop: 11/16/19 18:46 Pantoprazole Sodium 40 mg/ (Syringe) 10 mls @ 5 mls/min IV DAILY@1100 ADEBAYO Stop: 11/18/19 10:59 Last Admin: 10/21/19 12:09 Dose: 5 mls/min Documented by: Imipenem/Cilastatin Sodium 300 (mg/ Dextrose) 106 mls @ 100 mls/hr IV Q6H ADEBAYO; Protocol Stop: 10/29/19 18:29 Last Admin: 10/21/19 15:26 Dose: 100 mls/hr Documented by: Sodium Chloride (Nss 1000ml) 1,000 mls @ 50 mls/hr IV .Q20H ADEBAYO Stop: 11/19/19 07:44 Last Admin: 10/21/19 05:50 Dose: 50 mls/hr Documented by: Heparin Sodium/Dextrose (Heparin Sodium/Dextrose) 25,000 units in 500 mls @ 25 mls/hr IV .Q20H ADEBAYO; Protocol Stop: 11/19/19 13:29 Last Admin: 10/21/19 15:27 Dose: 1,250 units/hr, 25 mls/hr Documented by: Insulin Aspart (Insulin Aspart 100 Units/Ml 3 Ml Pen) 0 units SC [facility] Stop: 11/19/19 21:44 Last Admin: 10/21/19 12:10 Dose: 16 units Documented by: Miscellaneous (Carbohydrates For Hypoglycemia ) 15 - 30 gm PO UD PRN PRN Reason: Hypoglycemia Protocol Stop: 11/16/19 18:42 Miscellaneous Information (Pharmacy Glycemic Mgmt Consult) 1 ea N/A UD PRN; Protocol PRN Reason: Consult Stop: 11/16/19 19:54 Miscellaneous Information (Imipenem/Cilastatin Consult Active) 1 ea N/A UD PRN PRN Reason: Consult Stop: 11/18/19 18:28 Montelukast Sodium (Montelukast Sodium 10 Mg Tablet) 10 mg PO [facility] Stop: 11/16/19 20:59 Last Admin: 10/20/19 19:59 Dose: 10 mg Documented by: Morphine Sulfate (Morphine Sulfate 2 Mg/Ml Carp) 2 mg IV Q4 PRN PRN Reason: Pain Stop: 10/31/19 18:00 Last Admin: 10/20/19 17:38 Dose: 2 mg Documented by: Ondansetron HCl (Ondansetron Inj 2 Mg/Ml 2 Ml Vial) 4 mg IV Q6H PRN PRN Reason: Nausea Stop: 11/16/19 18:00 Tamsulosin HCl (Tamsulosin Hcl 0.4 Mg Cap) 0.4 mg PO [facility] Stop: 11/17/19 20:59 Last Admin: 10/20/19 20:02 Dose: 0.4 mg Documented by: PG Care Time/CCT Total # of Minutes Spent Total Time Spent with Patient: Total time spent is greater than 50% in coordination of care (as documented) at patient's floor/unit and/or counseling patient: Coding Level of Care Code 93283 Subseq Hosp Care Lvl 3 Diagnoses Acute cholecystitis K81.0 Acute respiratory failure with hypoxia J96.01 Atrial fibrillation I48.91 Hypokalemia E87.6 Diabetes E11.9 Coronary artery disease I25.10 Elevated bilirubin R17 Gastric mass K31.89 Hypertension I10 Gout M10.9 Dyslipidemia E78.5 BPH (benign prostatic hyperplasia) N40.0 GERD (gastroesophageal reflux disease) K21.9 CKD (chronic kidney disease) stage 3, GFR 30-59 ml/min N18.3 History of TIA (transient ischemic attack) Z86.73 Nonsustained ventricular tachycardia I47.2 RAÚL (acute kidney injury) N17.9 Metabolic acidosis E87.2 Acute diastolic (congestive) heart failure I50.31 Hypoglycemia E16.2 Cholelithiasis K80.20 DVT prophylaxis Z29.9
[2019-10-21 10:49] LABS: BUN Creatinine Ratio 24.5 (10-20); Calcium 8.9 mg/dl (8.5-10.1); Creatinine Clr Calc Pharmacy 38.8 ml/min; Est GFR (African American) 52.1
[2019-10-21 10:59] LABS: Beta-Hydroxybutyrate 12.13 mg/dl (0.2-2.81)
[2019-10-21] MEDS: PANTOprazole 40 MG in SYRINGE 0 ML IV SCH (12:09)
[2019-10-21 12:18] LABS: Potassium 4.1 mmol/L (3.5-5.1)
[2019-10-21] MEDS: TAMSULOSIN HCL 0.4 MG CAP PO SCH (20:15)
[2019-10-21] MEDS: MONTELUKAST SODIUM 10 MG TABLET PO SCH (20:15)
[2019-10-21] MEDS ORDERED: INSULIN HUMAN REGULAR PER UNIT 7 UNITS in SYRINGE 6.93 ML IV ONE (20:45)
[2019-10-21] MEDS: MoRPHine SULFATE 2 MG/ML CARP IV PRN (21:28)
[2019-10-22] MEDS ORDERED: INSULIN ASPART 100 UNITS/ML 3 ML PEN SC SCH (02:00)
[2019-10-22] MEDS: IMIPENEM/CILASTATIN SODIUM 300 MG in DEXTROSE 5% 100 ML IV SCH ×4 (02:46→20:44)
[2019-10-22] MEDS: SODIUM CHLORIDE 0.9% 1000ML 1,000 ML IV SCH (05:38)
[2019-10-22 07:32] LABS: Partial Thromboplastin Ratio 3.5
[2019-10-22] MEDS: MoRPHine SULFATE 2 MG/ML CARP IV PRN ×3 (07:33→22:17)
[2019-10-22 07:34] LABS: BUN Creatinine Ratio 22.4 (10-20); Calcium 8.4 mg/dl (8.5-10.1); Creatinine Clr Calc Pharmacy 45.4 ml/min; Est GFR (African American) 62.5; Potassium 3.6 mmol/L (3.5-5.1)
[2019-10-22 07:42] LABS: Partial Thromboplastin Time 96.5 Seconds (21.0-31.0)
--- NOTE | 2019-10-22 07:43 | Surgery Progress Note ---
Date of Service October 22, 2019 Assessment & Plan (1) Cholelithiasis: Patient has been cleared by cardiology and hospitalist Cr: 1.23 today Heparin gtt on hold Will plan to proceed with lap elsie and biopsy of gastric mass today with dr. abbott as above. ok per medicine and cardiology to proceed. breathing easier since lasix this AM re-discussed risks ( bleeding/infection/dvt/pe/mi/cva/injury to another organ, bile leaks etc...). pt agreeable. lap elsie with poss gastric mass bx Admission and Anticipated Discharge Date Admission Date: October 17, 2019 Subjective Patient says he has some back pain this AM, history of herniated disk. Otherwise he denies any abdominal pain, n/v, or chest pain. He has been doing exercises in his bed and has been ambulating around the unit some. Physical Exam Physical Exam: awake/alert Respiratory: normal respiratory effort Gastrointestinal (Abdomen): Inspection/Auscultation: abdomen not distended Percussion/Palpation: + abdomen tender (mild ttp in RUQ to deep palpation) and abdomen soft Results & Data ([facility]) Vital Signs (Past 12 Hours) Vital Signs Temp Pulse Pulse Resp BP Pulse Ox 10/22/19 03:40 37.4 C 75 18 127/73 92 10/21/19 23:34 36.8 C 76 19 119/65 91 10/21/19 21:40 64 16 91 10/21/19 19:44 36.7 C 83 20 142/74 H 97 PG Care Time/CCT Total # of Minutes Spent Total Time Spent with Patient: Total time spent is greater than 50% in coordination of care (as documented) at patient's floor/unit and/or counseling patient: Coding Level of Care Code 90196 Subseq Hosp Care Lvl 1 Diagnoses Cholelithiasis K80.20
[2019-10-22] MEDS: INSULIN ASPART 100 UNITS/ML 3 ML PEN SC SCH ×4 (08:22→20:40)
--- NOTE | 2019-10-22 08:44 | Pharmacy Report ---
Pharmacy Glycemic Short Note 2 - Date of Service October 22, 2019 - Glycemic Short BSG Results (Last 24 hours): 10/21/19 10/21/19 10/21/19 09:52 11:35 16:27 Glucose 311 H* POC Glucose 283 H 376 H* 10/21/19 10/21/19 10/21/19 16:28 16:36 20:06 Glucose POC Glucose 360 H* 341 H* 396 H* 10/21/19 10/21/19 10/22/19 20:07 20:08 02:00 Glucose POC Glucose 342 H* 399 H* 80 10/22/19 10/22/19 06:09 06:20 Glucose 71 POC Glucose 79 OUTPATIENT ANTIDIABETIC REGIMEN: * Trulicity 1.5mg SQ Weekly * Januvia 50mg PO Daily * A1c = 8.5% (10/18/19) ASSESSMENT: * Patient received 100 units of insulin yesterday * 20 units of basal, 73 units of prandial/correctional, and 7 units of IV insulin * BSGs poorly controlled yesterday (157, 283, 376, 399 mg/dL) * Novolog tightened significantly last evening to CF of 12 and carb ratio of 4 * Fasting BSG of 79 mg/dL - significantly lower than previous AM fasting BSGS. Unsure if this is due to basal insulin dose, or IV insulin/significant SC Novolog last evening * Patient is currently NPO for laparoscopic cholecystectomy today * Will hold basal insulin until after surgery PLAN FOR INPATIENT GLYCEMIC CONTROL: * Hold outpatient oral diabetes medications and Trulicity * Basal insulin * Lantus 20 units SC daily (to be given postoperatively today) * Bolus insulin * NovoLog per scale ACHS or Q6hrs while NPO * Goal Range: Low 110 mg/dL - High 150 mg/dL * Correction Factor: 15 mg/dL/unit * Nutritional / Prandial insulin per carb ratio of 1 unit per 5 grams CHO consumed PLAN FOR DISCHARGE: * to be determined
--- NOTE | 2019-10-22 08:55 | Cardiology Progress Note ---
Date of Service October 22, 2019 Assessment & Plan Admission and Anticipated Discharge Date Admission Date: October 17, 2019 Subjective He looks more short of breath this morning. In fact he is short of breath talking in sentences. I did help him sit up and then he was short of breath. He also is mildly wheezing which she did not have yesterday. He denies any chest pain or chest pressure. He does seem anxious overall he is complaining of left hip and leg pain which is been relatively chronic here in the hospital. He denies any lightheadedness or dizziness. He has a significant number of questions again this morning. Results & Data ([facility]) Vital Signs (Past 12 Hours) Vital Signs Temp Pulse Pulse Pulse Resp BP Pulse Ox 10/22/19 08:00 37.0 C 85 18 142/71 H 94 10/22/19 07:00 66 10/22/19 03:40 37.4 C 75 18 127/73 92 10/21/19 23:34 36.8 C 76 19 119/65 91 10/21/19 21:40 64 16 91 he is awake alert and oriented x3 he appears mildly short of breath he looks his stated age HEENT: 2+ carotid upstrokes no evidence of carotid bruits jugular venous pressure appeared normal his sclerae anicteric his hearing is mildly reduced Lungs: Faint crackles in the bases with inspiratory wheezing Heart: Irregular rate and rhythm no appreciable murmurs rubs or gallops Abdomen: Soft nontender nondistended positive bowel sounds extremities: No clubbing cyanosis or edema Psychiatric his affect appeared appropriate Neurologic he is awake alert and oriented x3 Impression: 1. Preoperative evaluation prior to possible laparoscopic cholecystectomy due to acute cholecystitis confirmed by HIDA scan 2. Acute diastolic heart failure secondary to IV fluids --resolved 2B. Normal LV function with type II diastolic dysfunction and mild to moderate mitral and tricuspid regurgitation 3. Coronary disease status post coronary bypass grafting x4 in 1997 4. New onset atrial fibrillation which is asymptomatic 5. Markedly elevated chads 2 vascular score 6. Normal carotid upstrokes with a normal carotid ultrasound 7. History of at least 3 TIAs as an outpatient 8. Diabetes mellitus type 2 9. Hypertension 10. Chronic kidney disease stage III He notes his weight since he came into the hospital is up 12 pounds this morning from his time at home. This is likely all related to volume as he is not eating. He also appears short of breath and is wheezing this morning and appears to have acute on chronic diastolic heart failure again. We stopped his IV fluids he will receive 40 mg of IV Lasix now stat. The challenge is his volume status with minimal amounts of fluids he goes in the heart failure. His creatinine this morning is 1.3 and likely his baseline is in the 1.6-1.7 range when he is on the core drier side. We will have to accept some degree of worsening prerenal azotemia in order to get him through surgery in the postoperative period where he is not eating. Given the volume of salt in normal saline post procedure I would consider half- normal saline and although he will third space after surgery secondary to anesthesia we will have to aggressively limit his IV fluids. I will discuss this with the hospitalist service this morning. He will need to be assessed before going downstairs with anesthesia to make sure that his respiratory status has improved. Ultimately he needs to have his gallbladder out. We may have to accept the fact that he will require additional respiratory support potentially with BiPAP upon next intubation from the OR.
[2019-10-22] MEDS ORDERED: FUROSEMIDE 40 MG in SYRINGE 0 ML IV ONE (09:00)
[2019-10-22] MEDS: PIPERACILLIN/TAZOBACTAM 3.375 GM in DEXTROSE 5% 100 ML IV SCH (10:03)
[2019-10-22] MEDS ORDERED: LIDOCAINE HCL 2% 2 ML VIAL/AMP(20MG/ML) INFIL ONE (10:27)
[2019-10-22] MEDS ORDERED: ONDANSETRON INJ 2 MG/ML 2 ML VIAL ONE (10:27)
[2019-10-22] MEDS ORDERED: CISATRACURIUM BESYLATE IV SOLN 2 MG/ML 10 ML VIAL IV ONE (10:27)
[2019-10-22] MEDS ORDERED: fentaNYL citrate 100 MCG/2 ML VIAL ONE ×2 (10:27→12:19)
[2019-10-22] MEDS ORDERED: PROPOFOL IV EMULSION 10 MG/ML 20 ML VIAL IV ONE (10:27)
[2019-10-22] MEDS ORDERED: SUCCINYLCHOLINE CHLORIDE 20 MG/ML 10 ML VIAL IV ONE (10:27)
[2019-10-22] MEDS ORDERED: BUPIVACAINE 0.5 % 5 MG/1 ML MPF 30ML VIAL ONE (11:11)
[2019-10-22] MEDS ORDERED: EPINEPHrine INJ 1 MG/ML AMP ONE (11:11)
--- NOTE | 2019-10-22 11:21 | Hospitalist Progress Note ---
Date of Service October 22, 2019 Assessment & Plan (1) Acute cholecystitis: Presented with right-sided abdominal pain, nausea/vomiting, with leukocytosis and low-grade fevers here. Found to have cholelithiasis and distended gallbladder on CT scan and ultrasound, although no definite signs of acute cholecystitis on imaging. Total bilirubin mildly elevated but LFTs otherwise normal. He had an MRCP which again showed cholelithiasis with mildly distended gallbladder, no convincing evidence of acute cholecystitis, no CBD dilatation, with an indeterminate 4.1 cm mass lesion along greater curvature of the stomach appearance favors a GIST WBC 15k yesterday, no fever, continue Imipenem HIDA scan obtained on 10/19 which does indeed confirm acute cholecystitis plan for OR todat for lap elsie, possible biopsy of gastric tumor/lesion patient is medically optimized at this time, he received Lasix this morning and is responding well avoid intra-operative fluids and fluids post op recommend return to PCU post op for close monitoring with afib and mild acute on chronic diastolic heart failure (2) Acute respiratory failure with hypoxia: Developed acute respiratory failure with hypoxia on 10/18 likely secondary to pulmonary edema from volume overload Also with diffuse wheezing that responded to bronchodilators-question if has underlying reactive airway disease given history of allergic rhinitis and Singulair use No history of smoking Chest x-ray with pulmonary edema and cardiomegaly resolved with Lasix IV now with some mild hypoxia requiring 2L this morning, no distress, lungs clear received Lasix 40mg IV and responding well, will place honeycutt stable for OR (3) RAÚL (acute kidney injury): edi consultant up to 1.8 after Lasix for diuresis down to 1.2 today but will a little bit of volume overload Lasix 40mg IV given today check BMP in the morning (4) Acute diastolic (congestive) heart failure: very sensitive to fluid shifts, was on minimal fluid at 50cc/hr now with some mild pulmonary edema but responding immediately to Lasix lungs are clear, breathing comfortably on only 2L, could probably be off oxygen recommend no intra-operative fluids, no fluids post op, monitor on PCU (5) Atrial fibrillation: Went into Afib during episode of resp distress rates controlled, asymptomatic likely PAF given h/o TIAs over the years without other explanation [id number] score high, started heparin gtt, drip was stopped this morning at 645am Appreciate Cardiology consultation plan for Eliquis on discharge (6) Hypokalemia: normal today at 3.6 (7) Diabetes: holding home po meds with hypoglycemia initially and then severe hyperglycemia from steroids Pharmacy managing giving basal and bolus insulin consider insulin gtt if not improving but would defer to pharmacy (8) Coronary artery disease: Patient has a history of a distant CABG including a FLORES he has had no coronary symptoms and has not taken nitro for some time. -Okay to continue aspirin as per surgery He is not on a beta-bess due to bradycardia and his statin is being held while n.p.o. 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 (14) BPH (benign prostatic hyperplasia): Patient reports difficulty with urination at times He is on tamsulosin at home-we will continue this while here despite being n.p.o. so that he does not have any issues with urinary retention (15) GERD (gastroesophageal reflux disease): Continue IV Protonix (16) CKD (chronic kidney disease) stage 3, GFR 30-59 ml/min: Unknown baseline creatinine, but 1.5 here on labs on admission and then improved to 1.34 Now with RAÚL Cr down to 1.4 today, gentle fluids (17) History of TIA (transient ischemic attack): Reports 3 different episodes of either visual symptoms or slurred speech over the last 20 years, but had the recent episode at least a month ago of right-sided visual blurriness that lasted 1 minute He reports he had an outpatient brain MRI and carotid ultrasound of which I do not have the results Carotid ultrasound ordered here by surgery-normal Now with new onset Afib discovered-likely culprit for TIAs -start heparin gtt as above -Continue aspirin -do NOT restart Plavix on discharge, but rather should go on Eliquis 2.5mg po bid when ok with Surgery (18) Nonsustained ventricular tachycardia: small runs, asymptomatic -replace IV KCl follow BMP, Mag and replace as needed -continue tele monitoring checking ECHO for EF cannot add on beta bess due to rates in the 60s in Afib (19) Metabolic acidosis: resolved (20) Hypoglycemia: With blood glucose low due to n.p.o. status was treated with D50 and maintenance D5 fluids while NPO, but then IVFs stopped due to resp failure as above -now with severe hyperglycemia from IV steroids sugars very labile will now be NPO for surgery continue Novolog SS (21) Cholelithiasis: As above (22) DVT prophylaxis: SCDs, heparin gtt Disposition-continued stay on PCU Admission and Anticipated Discharge Date Admission Date: October 17, 2019 Subjective patient breathing well this morning, he was slightly hypoxic earlier Dr. Bonilla gave him Lasix 40mg IV, responded well, already urinated 10 times since this morning will place honeycutt, he agrees reviewed labs, Cr is 1.2 this morning, K is 3.6 he has some RUQ pain and feels ready for surgery his lungs are clear on exam discussed with Dr. Bonilla, he is okay from cardiac perspective if breathing better on my assessment per my assessment, he is breathing well and stable for OR discussed with general surgery multiple times recommend no IV fluids intra-operative or post op as he is slightly volume overloaded Review of Systems Review of Systems: All systems reviewed & are unremarkable except as noted in Subjective Constitutional: + fatigue, + weakness and + weight gain; no fever, no chills and no sweats Respiratory: no cough, no dyspnea, no dyspnea on exertion and no wheezing Cardiovascular: no chest pain, no palpitations, no syncope and no edema Gastrointestinal: + abdominal pain (RUQ); no nausea, no vomiting, no constipation and no diarrhea/loose stools Physical Exam Constitutional: WD/WN, vitals as above Eyes: PERRL, conjunctivae normal, anicteric sclerae ENMT: external ear and nose normal, oropharynx normal Neck: trachea midline, no thyromegaly Respiratory: normal respiratory effort, lungs clear to auscultation Cardiovascular: Rate/Rhythm: regular rate and + irregularly irregular Heart Sounds: normal S1 and normal S2; no murmur Vessels: no JVD Extremities: normal capillary refill; no edema Gastrointestinal (Abdomen): normal bowel sounds, soft, nontender, no hepatosplenomegaly Musculoskeletal: no cyanosis or clubbing, extremities motor strength 5/5 Skin: no rashes, warm and dry Neurologic: patellar DTR's 2+ bilat, sensation intact and PERRL, EOMI, accommodation nl, no face palsy, no dysarthria Psychiatric: A+Ox3, euthymic affect Lymphatic: no cervical or axillary lymphadenopathy Results & Data Results & Data ([facility]) Vital Signs (Past 12 Hours) Vital Signs Temp Pulse Pulse Pulse Resp BP Pulse Ox 10/22/19 08:00 37.0 C 85 18 142/71 H 94 10/22/19 07:00 66 10/22/19 03:40 37.4 C 75 18 127/73 92 10/21/19 23:34 36.8 C 76 19 119/65 91 Laboratory Results Laboratory Results - last 24 hr 10/21/19 10/21/19 10/21/19 09:52 11:35 16:27 APTT PTT Ratio Sodium Potassium 4.1 D Chloride Carbon Dioxide Anion Gap BUN Creatinine Est Cr Clr Drug Dosing Est GFR ( Amer) Est GFR (Non-Af Amer) BUN/Creatinine Ratio Glucose POC Glucose 283 H 376 H* Calcium 10/21/19 10/21/19 10/21/19 16:28 16:36 20:06 APTT PTT Ratio Sodium Potassium Chloride Carbon Dioxide Anion Gap BUN Creatinine Est Cr Clr Drug Dosing Est GFR ( Amer) Est GFR (Non-Af Amer) BUN/Creatinine Ratio Glucose POC Glucose 360 H* 341 H* 396 H* Calcium 10/21/19 10/21/19 10/22/19 20:07 20:08 02:00 APTT PTT Ratio Sodium Potassium Chloride Carbon Dioxide Anion Gap BUN Creatinine Est Cr Clr Drug Dosing Est GFR ( Amer) Est GFR (Non-Af Amer) BUN/Creatinine Ratio Glucose POC Glucose 342 H* 399 H* 80 Calcium 10/22/19 10/22/19 10/22/19 06:09 06:20 06:20 APTT 96.5 H* PTT Ratio 3.5 Sodium 139 Potassium 3.6 Chloride 108 H Carbon Dioxide 23 Anion Gap 8.0 BUN 28 H Creatinine 1.23 Est Cr Clr Drug Dosing 45.4 Est GFR ( Amer) 62.5 Est GFR (Non-Af Amer) 54.0 BUN/Creatinine Ratio 22.4 H Glucose 71 POC Glucose 79 Calcium 8.4 L Medications Administered Current Inpatient Medications Albuterol (Albuterol 0.083% Nebu Soln 3 Ml Vial) 2.5 mg NEB Q6R PRN PRN Reason: Shortness Of Breath Or Wheezing Stop: 11/18/19 18:59 Last Admin: 10/21/19 21:39 Dose: 2.5 mg Documented by: Aspirin (Aspirin 81 Mg Ectab) 81 mg PO QAM ADEBAYO Stop: 11/17/19 11:59 Last Admin: 10/21/19 07:53 Dose: 81 mg Documented by: Dextrose (Dextrose 50% 50 Ml Syringe) 25 - 50 ml IV UD PRN; Protocol PRN Reason: Hypoglycemia Protocol Stop: 11/16/19 18:42 Last Admin: 10/19/19 12:17 Dose: 25 ml Documented by: Glucagon (Glucagon For Inj 1 Mg Vial) 1 mg SQ UD PRN; Protocol PRN Reason: Hypoglycemia Protocol Stop: 11/16/19 18:42 Glucose (Glucose 10 Tabs/Tube) 4 - 8 tabs PO UD PRN; Protocol PRN Reason: Hypoglycemia Protocol Stop: 11/16/19 18:42 Glucose (Glucose 40% Gel 15 Gm Tube) 15 - 30 gm PO UD PRN; Protocol PRN Reason: Hypoglycemia Protocol Stop: 11/16/19 18:42 Hydralazine HCl (Hydralazine Hcl 20 Mg/Ml Vial) 10 mg IV Q8 PRN PRN Reason: Blood Pressure - High Stop: 11/16/19 18:46 Pantoprazole Sodium 40 mg/ (Syringe) 10 mls @ 5 mls/min IV DAILY@1100 A[facility]YO Stop: 11/18/19 10:59 Last Admin: 10/21/19 12:09 Dose: 5 mls/min Documented by: Imipenem/Cilastatin Sodium 300 (mg/ Dextrose) 106 mls @ 100 mls/hr IV Q6H [facility]; Protocol Stop: 10/29/19 18:29 Last Infusion: 10/22/19 08:38 Dose: Infused Documented by: Insulin Aspart (Insulin Aspart 100 Units/Ml 3 Ml Pen) 0 units SC ACHS [facility] Stop: 11/19/19 21:44 Last Admin: 10/22/19 08:22 Dose: Not Given Documented by: Miscellaneous (Carbohydrates For Hypoglycemia ) 15 - 30 gm PO UD PRN PRN Reason: Hypoglycemia Protocol Stop: 11/16/19 18:42 Miscellaneous Information (Pharmacy Glycemic Mgmt Consult) 1 ea N/A UD PRN; Protocol PRN Reason: Consult Stop: 11/16/19 19:54 Miscellaneous Information (Imipenem/Cilastatin Consult Active) 1 ea N/A UD PRN PRN Reason: Consult Stop: 11/18/19 18:28 Montelukast Sodium (Montelukast Sodium 10 Mg Tablet) 10 mg PO [facility] Stop: 11/16/19 20:59 Last Admin: 10/21/19 20:15 Dose: 10 mg Documented by: Morphine Sulfate (Morphine Sulfate 2 Mg/Ml Carp) 2 mg IV Q4 PRN PRN Reason: Pain Stop: 10/31/19 18:00 Last Admin: 10/22/19 07:33 Dose: 2 mg Documented by: Ondansetron HCl (Ondansetron Inj 2 Mg/Ml 2 Ml Vial) 4 mg IV Q6H PRN PRN Reason: Nausea Stop: 11/16/19 18:00 Tamsulosin HCl (Tamsulosin Hcl 0.4 Mg Cap) 0.4 mg PO [facility] Stop: 11/17/19 20:59 Last Admin: 10/21/19 20:15 Dose: 0.4 mg Documented by: PG Care Time/CCT Total # of Minutes Spent Total Time Spent with Patient: Total time spent is greater than 50% in coordination of care (as documented) at patient's floor/unit and/or counseling patient: Coding Level of Care Code 85799 Subseq Hosp Care Lvl 3 Diagnoses Acute cholecystitis K81.0 Acute respiratory failure with hypoxia J96.01 RAÚL (acute kidney injury) N17.9 Acute diastolic (congestive) heart failure I50.31 Atrial fibrillation I48.91 Hypokalemia E87.6 Diabetes E11.9 Coronary artery disease I25.10 Elevated bilirubin R17 Gastric mass K31.89 Hypertension I10 Gout M10.9 Dyslipidemia E78.5 BPH (benign prostatic hyperplasia) N40.0 GERD (gastroesophageal reflux disease) K21.9 CKD (chronic kidney disease) stage 3, GFR 30-59 ml/min N18.3 History of TIA (transient ischemic attack) Z86.73 Nonsustained ventricular tachycardia I47.2 Metabolic acidosis E87.2 Hypoglycemia E16.2 Cholelithiasis K80.20 DVT prophylaxis Z29.9
--- NOTE | 2019-10-22 11:25 | Anesthesiology Consultation ---
Date of Service October 22, 2019 Assessment & Plan Chart Review Chart Review: Acceptable Risk for Surgery and Patient NOT seen in Pre Admission Testing Consults Requested none ASA ASA4 Proposed Anesthesia Anesthesia Type: General Risk / Benefits Reviewed With: PT / POA / Parent / Guardian, Accepts Plan and Informed Consent Obtained Additional Comments: covid test negative History Surgery Operation Date: 10/22/19 11:00 Proposed Procedures p Laparoscopic Cholecystectomy, Biopsy of Gastric Mass - Saji Cueva, DO Height/Weight Height: 5 ft 6 in Weight: 80.5 kg Allergies Allergy/AdvReac Type Severity Reaction Status Date / Time No Known Allergies Allergy Unverified 10/17/19 20:49 Medications Home Medications Medication Instructions Recorded Confirmed Last Taken allopurinol 10/17/19 Unknown amlodipine 10/17/19 10/17/19 09:00 atorvastatin 10/17/19 Unknown clopidogrel 10/17/19 10/17/19 09:00 dulaglutide [Trulicity] mg SUBCUT 10/17/19 Unknown famotidine 10/17/19 Unknown fluticasone propionate INTRANASAL 10/17/19 Unknown gabapentin 10/17/19 Unknown montelukast mg 10/17/19 Unknown nitroglycerin mg 10/17/19 Unknown omeprazole 10/17/19 Unknown sitagliptin [Januvia] mg 10/17/19 Unknown tamsulosin mg PO 10/17/19 Unknown Active Medications Generic Name Dose Route Start Last Admin Trade Name Freq PRN Reason Stop Dose Admin Albuterol 2.5 mg 10/21/19 08:26 10/21/19 21:39 Albuterol 0.083% Nebu Soln 3 Ml Vial NEB 11/18/19 18:59 2.5 mg Q6R PRN Administration Shortness Of Breath Or Wheezing Aspirin 81 mg 10/18/19 12:00 10/21/19 07:53 Aspirin 81 Mg Ectab PO 11/17/19 11:59 81 mg QAM ADEBAYO Administration Dextrose 25 - 50 ml 10/17/19 18:43 10/19/19 12:17 Dextrose 50% 50 Ml Syringe IV 11/16/19 18:42 25 ml UD PRN Administration Hypoglycemia Protocol Protocol Pantoprazole Sodium 40 mg/ 10 mls @ 5 mls/min 10/19/19 11:00 10/21/19 12:09 Syringe IV 11/18/19 10:59 5 mls/min DAILY@1100 ADEBAYO Administration Imipenem/Cilastatin Sodium 300 106 mls @ 100 mls/hr 10/19/19 18:30 10/22/19 08:38 mg/ Dextrose IV 10/29/19 18:29 Infused Q6H [facility] Infusion Protocol Insulin Aspart 0 units 10/20/19 21:45 10/22/19 08:22 Insulin Aspart 100 Units/Ml 3 Ml Pen SC 11/19/19 21:44 Not Given ACHS ADEBAYO Montelukast Sodium 10 mg 10/17/19 21:00 10/21/19 20:15 Montelukast Sodium 10 Mg Tablet PO 11/16/19 20:59 10 mg HS ADEBAYO Administration Morphine Sulfate 2 mg 10/17/19 18:01 10/22/19 07:33 Morphine Sulfate 2 Mg/Ml Carp IV 10/31/19 18:00 2 mg Q4 PRN Administration Pain Tamsulosin HCl 0.4 mg 10/18/19 21:00 10/21/19 20:15 Tamsulosin Hcl 0.4 Mg Cap PO 11/17/19 20:59 0.4 mg HS ADEBAYO Administration NPO Date Last Intake of Fluids: 10/21/19 Time Last Intake of Fluids: 23:55 Date Last Intake of Solids: 10/17/19 Time Last Intake of Solids: 21:00 Past Medical History Medical History Atrial fibrillation BPH (benign prostatic hyperplasia) CKD (chronic kidney disease) stage 3, GFR 30-59 ml/min Coronary artery disease Diabetes Dyslipidemia GERD (gastroesophageal reflux disease) Gout History of TIA (transient ischemic attack) Hypertension Exercise / Class Metabolic Activity III < 4 Walking/Shop/Light housework Past Anesthesia History No Hx of Anesthesia Complications and No Family Hx of Anesthesia Complications History of PONV No Hx of PONV and No Hx of Motion Sickness Social History Smoking Status: Never smoker Hx Alcohol Use: No Hx Substance Use: No Physical Exam Vital Signs Last Vital Signs Temp 37.1 C 10/22/19 11:00 Pulse 81 10/22/19 11:00 Resp 18 10/22/19 11:00 BP 171/100 H 10/22/19 11:00 Pulse Ox 97 10/22/19 11:00 Constitutional + obese ENMT Mouth: no dentition abnormality Thyromental Distance: > or= 3.5 Finger Breadths Mallampati Class: II Neck normal visual inspection, trachea midline and + facial hair; neck extension not limited Respiratory normal respiratory effort Auscultation: + diminished lung sounds, + crackles and + rales Cardiovascular Rate/Rhythm: + abnormal rate (irreg. / AFib) and + abnormal rhythm (Irreg./AFib) Heart Sounds: no murmur Vessels: no carotid bruit Musculoskeletal Spine: normal cervical ROM Extremities: extremities normal to inspection Neurologic moves all extremities Motor/Sensory: no sensory deficit Psychiatric Orientation: alert and oriented x 3 Testing Laboratory Results 10/21/19 06:31 10/22/19 06:20 PT 12.6 Seconds (9.0-12.0) H 10/20/19 14:55 INR 1.2 (0.9-1.1) H 10/20/19 14:55 APTT 96.5 Seconds (21.0-31.0) H* 10/22/19 06:20 Hemoglobin A1c 8.5 % (4.5-5.6) H 10/18/19 05:26 10/19/19 14:03 Aerobic Blood Culture - Preliminary Blood No growth in Aerobic bottle after 48 hours. Anaerobic Blood Culture - Final 10/19/19 14:00 Aerobic Blood Culture - Preliminary Blood No growth in Aerobic bottle after 48 hours. Anaerobic Blood Culture - Final 10/22/19 10/22/19 06:09 02:00 POC Glucose 79 80 Electrocardiogram Date: 10/19/19 Findings: + AFIB @ (at 94 w/PVC's) Chest X-Ray Date: 10/20/19 Findings: + cardiomegaly and + pulmonary vascular congestion Echocardiogram Date: 10/21/19 LV Function: normal RWMA: + none Other Findings: + LVH (mild) and + diastolic dysfunction (grade 2) Valvular Disease: + AI (mild) and + MR (moderate) moderate TR
[2019-10-22] MEDS ORDERED: PHENYLEPHRINE 100MCG/ML 5ML SYR ONE (12:09)
[2019-10-22] MEDS ORDERED: SURGICEL ABSORB HEMOSTAT 2IN X 14IN TOP ONE (12:38)
[2019-10-22] MEDS ORDERED: GLYCOPYRROLATE 0.2 MG/ML VIAL ONE (12:43)
[2019-10-22] MEDS ORDERED: NEOSTIGMINE METHYLSULFATE 5 MG/5 ML SYR ONE (12:43)
[2019-10-22] MEDS ORDERED: ESMOLOL HCL INJ 10 MG/ML 10ML VIAL IV ONE (12:49)
[2019-10-22] MEDS ORDERED: ONDANSETRON INJ 2 MG/ML 2 ML VIAL IV PRN (12:51)
[2019-10-22] MEDS ORDERED: NALOXONE HCL 0.4 MG/1 ML VIAL/CARP IV PRN (12:51)
[2019-10-22] MEDS ORDERED: FLUMAZENIL 0.1 MG/1 ML 10 ML VIAL IV PRN (12:51)
[2019-10-22] MEDS ORDERED: PROMETHAZINE HCL 12.5 MG in SODIUM CHLORIDE 0.9% 50 ML IV PRN (12:51)
[2019-10-22] MEDS ORDERED: ePHEDrine sulfate 50 MG/ML AMP IV PRN (12:51)
[2019-10-22] MEDS ORDERED: ATROPINE SULFATE 0.1 MG/ML 10ML SYR IV PRN (12:51)
[2019-10-22] MEDS ORDERED: LABETALOL HCL IV 5 MG/ML 20ML IV PRN (12:51)
--- NOTE | 2019-10-22 12:58 | Operative Report ---
PG Post Operative Report Pre & Post Diagnosis Operation Date: 10/22/19 11:00 Pre-Op Diagnosis: Acute Cholecystitis, Gastric Mass Post-Op Diagnosis: Acute Cholecystitis, Gastric Mass I identified the patient and participated in the time-out.: Yes Procedure Operation Date: 10/22/19 11:00 Actual Procedures p Laparoscopic Cholecystectomy, Biopsy of Gastric Mass(Not Applicable); enterolysis - Saji Cueva DO Surgeon Saji Cueva DO Domestic Housekeeper blaze Florian Estimated Blood Loss 50 Findings Consistent with Post-Op Diagnosis Specimens 1. gallbladder 2. gastric mass bx Description of Procedure After informed consent was obtained the patient was taken to the operating room and placed in the supine position. After successful intubation the abdomen was sterilely prepped and draped in usual fashion. A periumbilical incision was made with an 11 blade scalpel and carried down through the soft tissue using electrocautery. The anterior rectus fascia was opened using electrocautery and 2 #0 Vicryl stay sutures were placed. The peritoneum was elevated with hemostats and incised under direct vision using Metzenbaum scissors. A finger sweep was performed and a 12 mm Horton trocar was placed. The abdomen was insufflated to 18 mmHg. The laparoscope was inserted and the abdomen was examined in 360. No gross abnormalities were identified. A subxiphoid 5 mm port (which would later be converted to 12 mm port) and 2 right upper quadrant 5 mm ports were placed under direct vision. The patient was placed in a reverse Trendelenburg position and slightly airplaned to the left. The gallbladder was acutely inflamed and slightly necrotic. I used a gallbladder needle and syringe to withdraw about 40 cc of dark bile. After I did this we were then able grab the gallbladder and elevated superiorly and laterally. Part of the gallbladder did tear throughout the case allowing some spillage into the right upper quadrant. Adhesions involving the colon and duodenum were taken down using primarily blunt dissection as well as a small amount of scissor lysis. Eventually, the cystic duct was identified and skeletonized. It was too thick to use a clip senior property manager and therefore I exchanged the 5 mm trocar for a 12 and used a FELIX 45 mm brown cartridge to transect the cystic duct. In similar fashion the cystic artery was identified and skeletonized however it was able to be clipped and divided. There were some small posterior branches that were clipped and divided as well. The gallbladder was removed from the gallbladder fossa with electrocautery. It was placed into an Endo Catch bag. Thorough irrigation was performed. Several small bleeding points on the gallbladder fossa were controlled using cautery. At the end of the procedure there was adequate hemostasis and no evidence of any bile leaks. Because of him being on Plavix I decided to place a piece of Surgicel into the gallbladder fossa. A 10 flat Eduardo-Jacobs Jacobs drain was also placed in the right upper quadrant and brought out through 1 of the 5 mm trocar sites. It was secured to the skin using 2-0 nylon. The gallbladder was placed into an Endo Catch bag and removed from the camera port site. My attention then turned to the gastric mass as seen on CT scan. We elevated the left lobe of liver and readily saw the firm mass in the gastrohepatic ligament. This was not going to easily be resectable at this time. I therefore placed an additional left upper quadrant stab incision and used a Pop-Cut needle biopsy to take several passes through the mass. It was a rather firm mass. There was not much bleeding at all after the biopsy. It did not appear to be congruent with the stomach itself but along the lesser curvature border. No other abnormalities were seen. There were no evidence of any liver metastases. After gastric biopsy, the trochars were all removed and the abdomen was desufflated. The fascia of the camera port was closed using 0 Vicryl in a [id number] fashion. All the wounds were irrigated and closed using 4-0 Monocryl. Marcaine was injected around them for postoperative analgesia and sk in glue used as a dressing. The patient was awaken extubated and transferred to recovery in stable condition. My physician's catering assistant was present throughout the entire case... helped with prepping the patient. With exposure for trocar placement, as well as retracted the gallbladder throughout the case and also assisted with wound closure and dressing placement. I attest to the content of the Intraoperative Record and any orders documented therein. Any exceptions are noted below.
[2019-10-22] MEDS: fentaNYL citrate 100 MCG/2 ML VIAL IV PRN ×4 (13:25→13:47)
--- NOTE | 2019-10-22 14:00 | Anesthesiology Progress Note ---
Date of Service October 22, 2019 Anesthesia Post Procedure Vital Signs Vital Signs: Temp Pulse Pulse Pulse Pulse Resp BP 10/22/19 13:50 100 H 16 159/91 H 10/22/19 13:40 102 H 16 161/85 H 10/22/19 13:30 98 H 18 173/84 H 10/22/19 13:20 108 H 20 165/78 H 10/22/19 13:10 98 H 20 155/94 H 10/22/19 13:03 36.8 C 94 H 20 168/99 H 10/22/19 11:00 37.1 C 81 18 10/22/19 08:00 37.0 C 85 18 10/22/19 07:00 66 10/22/19 03:40 37.4 C 75 18 10/21/19 23:34 36.8 C 76 19 10/21/19 21:40 64 16 10/21/19 19:44 36.7 C 83 20 10/21/19 16:15 36.8 C 76 18 10/21/19 15:00 72 BP Pulse Ox 10/22/19 13:50 97 10/22/19 13:40 97 10/22/19 13:30 97 10/22/19 13:20 98 10/22/19 13:10 95 10/22/19 13:03 93 10/22/19 11:00 171/100 H 97 10/22/19 08:00 142/71 H 94 10/22/19 07:00 10/22/19 03:40 127/73 92 10/21/19 23:34 119/65 91 10/21/19 21:40 91 10/21/19 19:44 142/74 H 97 10/21/19 16:15 139/74 95 10/21/19 15:00 Pain Intensity Abdomen: Pain Intensity: 5 Left Leg: Pain Intensity: 0 Transfer of Care Handoff Completed per policy Notes Mental Status: alert / awake / arousable Patient Amnestic to Procedure: Yes Nausea / Vomiting: adequately controlled Pain: adequately controlled Airway Patency, RR, SpO2: stable & adequate BP & HR: stable & adequate Hydration State: stable & adequate Anesthetic Complications: no major complications apparent
[2019-10-22] MEDS ORDERED: INSULIN GLARGINE SOLOSTAR 100 UNITS/ML 3 ML PEN SC ONE (14:15)
[2019-10-22] MEDS: PANTOprazole 40 MG in SYRINGE 0 ML IV SCH (15:15)
[2019-10-22] MEDS: ASPIRIN 81 MG ECTAB PO SCH (15:15)
[2019-10-22] MEDS ORDERED: SODIUM CHLORIDE 0.45 % 1,000 ML IV SCH (15:30)
[2019-10-22] MEDS: MoRPHine SULFATE 4 MG/ML 1 ML CARP\\VIAL IV PRN ×2 (15:46→23:45)
[2019-10-22] MEDS: MONTELUKAST SODIUM 10 MG TABLET PO SCH (20:43)
[2019-10-22] MEDS: TAMSULOSIN HCL 0.4 MG CAP PO SCH (20:43)
[2019-10-23] MEDS: IMIPENEM/CILASTATIN SODIUM 300 MG in DEXTROSE 5% 100 ML IV SCH ×4 (01:21→20:42)
[2019-10-23 06:45] LABS: Hemoglobin 11.7 g/dL (14.0-18.0); Mean Corpuscular Hemoglobin 30.5 pg (25-34); Mean Corpuscular Hgb Conc 34.4 g/dL (32-36); Mean Corpuscular Volume 88.5 fL (80-100); Mean Platelet Volume 10.1 fL (7.4-10.4); Platelet Count 204 K/uL (130-400); RDW Coefficient of Variation 15.8 % (11.5-14.5); RDW Standard Deviation 51.2 fL (36.4-46.3); Red Blood Count 3.84 M/uL (4.7-6.1); White Blood Count 15.63 K/uL (4.8-10.8)
[2019-10-23 06:53] LABS: Partial Thromboplastin Ratio 1.2; Partial Thromboplastin Time 32.7 Seconds (21.0-31.0)
[2019-10-23 07:12] LABS: BUN Creatinine Ratio 17.4 (10-20); Calcium 8.7 mg/dl (8.5-10.1); Creatinine Clr Calc Pharmacy 40.8 ml/min; Est GFR (African American) 54.9; Est GFR (Non-African American) 47.4; Potassium 3.8 mmol/L (3.5-5.1)
[2019-10-23 07:24] LABS: Basophils # (auto) 0.01 K/uL (0-0.2); Basophils % (auto) 0.1 %; Eosinophils # (auto) 0.01 K/uL (0-0.5); Eosinophils % (auto) 0.1 %; Immature Granulocytes # (auto) 0.08 K/uL (0.00-0.02); Immature Granulocytes % (auto) 0.5 %; Lymphocytes # (auto) 1.49 K/uL (1.2-3.4); Lymphocytes % (auto) 9.5 %; Monocytes # (auto) 1.58 K/uL (0.11-0.59); Monocytes % (auto) 10.1 %; Neutrophils # (auto) 12.46 K/uL (1.4-6.5); Neutrophils % (auto) 79.7 %
[2019-10-23] MEDS: CARBOHYDRATES FOR HYPOGLYCEMIA PO PRN (07:35)
[2019-10-23 08:00] LABS: Albumin Level 2.5 gm/dl (3.4-5.0); Bilirubin Direct 0.5 mg/dl (0-0.2); Bilirubin,Total 2.7 mg/dl (0.2-1); Total Protein 6.6 gm/dl (6.4-8.2)
--- NOTE | 2019-10-23 08:11 | Surgery Progress Note ---
Date of Service October 23, 2019 Assessment & Plan (1) Acute cholecystitis: POD#1 laparoscopic cholecystectomy WBC: 15.6, Tbili: 2.7, Hb.7 Other than some expected onesimo-incisional ttp he is feeling well Okay to advance diet to regular this AM for breakfast Will order po pain medication, as needed LULA serosang; okay to remove later this morning Will order Physical therapy to evaluate prior to discharge Pt seen with Dr. Cueva as above. doing ok all things considered. LULA serous...may be contributing to discomfort. will d/c today. advance diet. PT/OT. Admission and Anticipated Discharge Date Admission Date: October 17, 2019 Subjective Patient has some RUQ discomfort. Otherwise he is feeling well. Denies CP, SOB, N/V. Is hungry for more than clears. Physical Exam Physical Exam: awake/alert Respiratory: normal respiratory effort Gastrointestinal (Abdomen): Inspection/Auscultation: + abdominal surgical drain present (serosang. ) Percussion/Palpation: + abdomen tender (some expected onesimo-incisional ttp) and abdomen soft Results & Data ([facility]) Vital Signs (Past 12 Hours) Vital Signs Temp Pulse Pulse Pulse Pulse Resp BP 10/23/19 07:39 79 10/23/19 03:52 36.7 C 87 18 137/73 10/22/19 23:27 36.9 C 87 16 133/68 10/22/19 23:00 76 10/22/19 20:35 36.9 C 98 H 20 142/81 H 10/22/19 20:27 36.7 C 80 18 146/86 H Pulse Ox 10/23/19 07:39 10/23/19 03:52 10/22/19 23:27 90 10/22/19 23:00 10/22/19 20:35 91 10/22/19 20:27 91 PG Care Time/CCT Total # of Minutes Spent Total Time Spent with Patient: Total time spent is greater than 50% in coordination of care (as documented) at patient's floor/unit and/or counseling patient: Coding Level of Care Code None Diagnoses Acute cholecystitis K81.0
[2019-10-23] MEDS: ASPIRIN 81 MG ECTAB PO SCH (09:04)
[2019-10-23] MEDS: PANTOprazole 40 MG in SYRINGE 0 ML IV SCH (09:04)
[2019-10-23] MEDS: INSULIN ASPART 100 UNITS/ML 3 ML PEN SC SCH ×4 (09:06→20:43)
--- NOTE | 2019-10-23 10:22 | Cardiology Progress Note ---
Date of Service October 23, 2019 Assessment & Plan Admission and Anticipated Discharge Date Admission Date: October 17, 2019 Subjective He has some right upper quadrant discomfort. He also has some discomfort taking a deep breath with his LULA drain in. He denies any chest pain chest pressure or chest heaviness. Denies any shortness of breath. He does not appear dyspneic this morning. He did eat. He wants to know when he can go home. [place] any palpitations or fluttering or feeling his heart racing. Denies a cough fevers chills or sweats denies any lower extremity edema Results & Data ([facility]) Vital Signs (Past 12 Hours) Vital Signs Temp Pulse Pulse Resp BP BP Pulse Ox 10/23/19 08:00 36.7 C 81 20 154/85 H 95 10/23/19 07:39 79 10/23/19 03:52 36.7 C 87 18 137/73 10/22/19 23:27 36.9 C 87 16 133/68 90 10/22/19 23:00 76 he is awake alert and oriented x3; He is no longer short of breath HEENT: 2+ carotid upstrokes no evidence of carotid bruits jugular venous pressure appeared normal his sclerae anicteric his hearing is mildly reduced Lungs: Decreased breath sounds in the bases bilaterally no rales rhonchi or wheezing Heart: Irregular rate and rhythm no appreciable murmurs rubs or gallops Abdomen: Soft Mildly tender nondistended positive bowel sounds extremities: No clubbing cyanosis or edema Psychiatric his affect appeared appropriate Neurologic he is awake alert and oriented x3 Impression: 1. Postoperative day #1 status post laparoscopic cholecystectomy due to acute cholecystitis confirmed by HIDA scan 2. Acute diastolic heart failure secondary to IV fluids --resolved 2B. Normal LV function with type II diastolic dysfunction and mild to moderate mitral and tricuspid regurgitation 3. Coronary disease status post coronary bypass grafting x4 in 1997 4. New onset atrial fibrillation which is asymptomatic 5. Markedly elevated chads 2 vascular score 6. Normal carotid upstrokes with a normal carotid ultrasound 7. History of at least 3 TIAs as an outpatient 8. Diabetes mellitus type 2 9. Hypertension 10. Chronic kidney disease stage III We will have to watch his urine output. He has a significant amount of volume that his third space. Over the next 24 to 48 hours he likely will reabsorb that. He will need Lasix probably over the next couple of days and even upon discharge for a couple of days given his very tenuous volume status with his diastolic heart failure. Surgery suggested it was okay to start anticoagulation given his age and the f act that his creatinine baseline is probably in the 1.5-1.6 range I would start apixaban 2-1/2 mg twice daily. This can start tonight. I would encourage him to get out of bed and walk around once his LULA drain has been taken out. His heart rate with atrial fibrillation tends to be well controlled. His blood pressure is elevated slightly likely a combination of pain and volume. He will need to follow-up with his outpatient applications processor in [place] within a couple of weeks of discharge. All this was discussed with Dr. Pena
[2019-10-23] MEDS: HYDROCODONE/ACETAMOPHEN 5/325MG TAB PO PRN ×3 (11:06→19:18)
[2019-10-23] MEDS: APIXABAN 2.5 MG TAB PO SCH ×2 (11:06→20:42)
[2019-10-23] MEDS ORDERED: INSULIN HUMAN REGULAR PER UNIT 7 UNITS in SYRINGE 6.93 ML IV ONE (11:45)
[2019-10-23] MEDS ORDERED: INSULIN GLARGINE SOLOSTAR 100 UNITS/ML 3 ML PEN SC ONE (12:00)
--- NOTE | 2019-10-23 13:27 | Pharmacy Report ---
Pharmacy Glycemic Short Note 2 - Date of Service October 23, 2019 - Glycemic Short BSG Results (Last 24 hours): 10/22/19 10/22/19 10/22/19 15:32 17:24 20:08 Glucose POC Glucose 242 H 250 H 165 H 10/23/19 10/23/19 10/23/19 06:17 07:30 07:31 Glucose 54 L POC Glucose 58 L* 68 L* 10/23/19 10/23/19 10/23/19 08:00 11:16 11:18 Glucose POC Glucose 97 336 H* 344 H* OUTPATIENT ANTIDIABETIC REGIMEN: * Trulicity 1.5mg SQ Weekly * Januvia 50mg PO Daily * A1c = 8.5% (10/18/19) ASSESSMENT: * Patient is now POD #1 s/p laparoscopic cholecystectomy * Continues on Primaxin 300 mg IV q6h * Patient received 33 units of insulin yesterday * 20 units of basal and 13 units of prandial/correctional * BSGs poorly controlled yesterday (79, 172, 250, 165 mg/dL) * Fasting BSG of 68 mg/dL this morning - will decrease basal insulin dose today * Lunch BSG significantly elevated at 344 mg/dL * Ordered 7 unit (0.1 unit/kg) IV regular insulin bolus * Will tighten carb ratio to 4 and decrease lower end of goal range PLAN FOR INPATIENT GLYCEMIC CONTROL: * Hold outpatient oral diabetes medications and Trulicity * Basal insulin - decrease * Lantus 14 units SC daily (to be given postoperatively today) * Bolus insulin - tighten carb ratio and decrease lower end of goal range from 110 to 90 mg/dL * NovoLog per scale ACHS or Q6hrs while NPO * Goal Range: Low 90 mg/dL - High 150 mg/dL * Correction Factor: 15 mg/dL/unit * Nutritional / Prandial insulin per carb ratio of 1 unit per 4 grams CHO consumed
[2019-10-23] MEDS: TAMSULOSIN HCL 0.4 MG CAP PO SCH (20:42)
[2019-10-23] MEDS: MONTELUKAST SODIUM 10 MG TABLET PO SCH (20:43)
--- NOTE | 2019-10-23 22:52 | Hospitalist Progress Note ---
Date of Service October 23, 2019 Assessment & Plan (1) Acute cholecystitis: Presented with right-sided abdominal pain, nausea/vomiting, with leukocytosis and low-grade fevers here. Found to have cholelithiasis and distended gallbladder on CT scan and ultrasound, although no definite signs of acute cholecystitis on imaging. Total bilirubin mildly elevated but LFTs otherwise normal. He had an MRCP which again showed cholelithiasis with mildly distended gallbladder, no convincing evidence of acute cholecystitis, no CBD dilatation, with an indeterminate 4.1 cm mass lesion along greater curvature of the stomach appearance favors a GIST WBC still 15k, likely from surgery, no fever, continue Imipenem for 7 days total HIDA scan obtained on 10/19 which does indeed confirm acute cholecystitis lap elsie on 10/21, tolerated well removed LULA drain today as it may be contributing to discomfort PT ordered to get patient moving clear liquids, diet per surgery + flatus, no BM yet, it would be early (2) Acute respiratory failure with hypoxia: Developed acute respiratory failure with hypoxia on 10/18 likely secondary to pulmonary edema from volume overload Also with diffuse wheezing that responded to bronchodilators-question if has underlying reactive airway disease given history of allergic rhinitis and Singulair use No history of smoking Chest x-ray with pulmonary edema and cardiomegaly resolved with Lasix IV again some hypoxia on 10/21, resolved with Lasix no signs of volume overload at this time, monitor closely, low threshold to give Lasix 40mg IV (3) RAÚL (acute kidney injury): 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 after 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 for diuresis down to 1.2 for two days, making adequate urine Lasix 40mg IV PRN, may start to mobilize fluids from third spacing (4) Acute diastolic (congestive) heart failure: very sensitive to fluid shifts, was on minimal fluid at 50cc/hr now with some mild pulmonary edema but responding immediately to Lasix lungs are clear, breathing comfortably on only 2L, could probably be off oxygen at this time acute failure resolved, monitor closely (5) Atrial fibrillation: Went into Afib during episode of resp distress rates controlled, asymptomatic likely PAF given h/o TIAs over the years without other explanation [id number] score high, started heparin gtt, drip was stopped prior to surgery Appreciate Cardiology consultation plan for Eliquis on discharge, started this morning as general surgery okay with anticoagulation (6) Hypokalemia: normal today at 3.8 (7) Diabetes: holding home po meds labile sugars Novolog SS drinking again (8) Coronary artery disease: Patient has a history of a distant CABG including a FLORES he has had no coronary symptoms and has not taken nitro for some time. -Okay to continue aspirin as per surgery He is not on a beta-bess due to bradycardia and his statin is being held while n.p.o. 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 (14) BPH (benign prostatic hyperplasia): Patient reports difficulty with urination at times He is on tamsulosin at home-we will continue this while here despite being n.p.o. so that he does not have any issues with urinary retention (15) GERD (gastroesophageal reflux disease): Continue IV Protonix (16) CKD (chronic kidney disease) stage 3, GFR 30-59 ml/min: Unknown baseline creatinine, but 1.5 here on labs on admission and then improved to 1.34 Now with RAÚL Cr down to 1.4 today, gentle fluids (17) History of TIA (transient ischemic attack): Reports 3 different episodes of either visual symptoms or slurred speech over the last 20 years, but had the recent episode at least a month ago of right-sided visual blurriness that lasted 1 minute He reports he had an outpatient brain MRI and carotid ultrasound of which I do not have the results Carotid ultrasound ordered here by surgery-normal Now with new onset Afib discovered-likely culprit for TIAs -start heparin gtt as above -Continue aspirin -do NOT restart Plavix on discharge, but rather should go on Eliquis 2.5mg po bid when ok with Surgery (18) Nonsustained ventricular tachycardia: small runs, asymptomatic -replace IV KCl follow BMP, Mag and replace as needed -continue tele monitoring checking ECHO for EF cannot add on beta bess due to rates in the 60s in Afib (19) Metabolic acidosis: resolved (20) Hypoglycemia: resolved (21) Cholelithiasis: As above (22) DVT prophylaxis: SCDs, Eliquis Disposition-continued stay on PCU Admission and Anticipated Discharge Date Admission Date: October 17, 2019 Subjective patient feeling well, has some pain in RUQ from surgery hurts more with deep breath no dyspnea, no cough, no chest pain, no fever reviewed labs, WBC still high, Cr is stable, electrolytes stable discussed with general surgery, they are okay with anticoagulation, will start on Eliquis discussed with Dr. Bonilla, he recommended watching for signs of volume overload Review of Systems Review of Systems: All systems reviewed & are unremarkable except as noted in Subjective Gastrointestinal: + abdominal pain (RUQ) and + constipation (+ flatus) Physical Exam Constitutional: WD/WN, vitals as above Eyes: PERRL, conjunctivae normal, anicteric sclerae ENMT: external ear and nose normal, oropharynx normal Neck: trachea midline, no thyromegaly Respiratory: normal respiratory effort, lungs clear to auscultation Cardiovascular: Rate/Rhythm: regular rate and + irregularly irregular Heart Sounds: normal S1 and normal S2; no murmur Vessels: no JVD Extremities: normal capillary refill; no edema Gastrointestinal (Abdomen): Inspection/Auscultation: + abdomen distended (slightly) and normal bowel sounds Percussion/Palpation: + abdomen tender (RUQ) and abdomen soft; no guarding and abdomen not rigid Musculoskeletal: no cyanosis or clubbing, extremities motor strength 5/5 Skin: no rashes, warm and dry Neurologic: patellar DTR's 2+ bilat, sensation intact and PERRL, EOMI, accommodation nl, no face palsy, no dysarthria Psychiatric: A+Ox3, euthymic affect Lymphatic: no cervical or axillary lymphadenopathy Results & Data Results & Data ([facility]) Vital Signs (Past 12 Hours) Vital Signs Temp Pulse Pulse Pulse Resp BP BP 10/23/19 20:06 37.1 C 76 18 156/85 H 10/23/19 16:11 37.0 C 85 18 113/72 10/23/19 15:00 83 10/23/19 14:00 37.1 C 91 H 20 129/77 Pulse Ox 10/23/19 20:06 91 10/23/19 16:11 90 10/23/19 15:00 10/23/19 14:00 94 Laboratory Results Laboratory Results - last 24 hr 10/23/19 10/23/19 10/23/19 06:17 06:17 06:17 WBC 15.63 H RBC 3.84 L Hgb 11.7 L Hct 34.0 L MCV 88.5 MCH 30.5 MCHC 34.4 RDW Std Deviation 51.2 H RDW Coeff of Armaan 15.8 H Plt Count 204 MPV 10.1 Immature Gran % (Auto) 0.5 Neut % (Auto) 79.7 Lymph % (Auto) 9.5 Gulf % (Auto) 10.1 Eos % (Auto) 0.1 Baso % (Auto) 0.1 Neut # (Auto) 12.46 H Lymph # (Auto) 1.49 Gulf # (Auto) 1.58 H Eos # (Auto) 0.01 Baso # (Auto) 0.01 Immature Gran # (Auto) 0.08 H APTT 32.7 H PTT Ratio 1.2 Sodium 137 Potassium 3.8 Chloride 103 Carbon Dioxide 26 Anion Gap 8.0 BUN 24 H Creatinine 1.37 Est Cr Clr Drug Dosing 40.8 Est GFR ( Amer) 54.9 Est GFR (Non-Af Amer) 47.4 BUN/Creatinine Ratio 17.4 Glucose 54 L POC Glucose Calcium 8.7 Total Bilirubin Direct Bilirubin AST ALT Alkaline Phosphatase Total Protein Albumin 10/23/19 10/23/19 10/23/19 06:17 07:30 07:31 WBC RBC Hgb Hct MCV MCH MCHC RDW Std Deviation RDW Coeff of Armaan Plt Count MPV Immature Gran % (Auto) Neut % (Auto) Lymph % (Auto) Gulf % (Auto) Eos % (Auto) Baso % (Auto) Neut # (Auto) Lymph # (Auto) Gulf # (Auto) Eos # (Auto) Baso # (Auto) Immature Gran # (Auto) APTT PTT Ratio Sodium Potassium Chloride Carbon Dioxide Anion Gap BUN Creatinine Est Cr Clr Drug Dosing Est GFR ( Amer) Est GFR (Non-Af Amer) BUN/Creatinine Ratio Glucose POC Glucose 58 L* 68 L* Calcium Total Bilirubin 2.7 H D Direct Bilirubin 0.5 H AST 41 H ALT 53 Alkaline Phosphatase 88 Total Protein 6.6 Albumin 2.5 L 10/23/19 10/23/19 10/23/19 08:00 11:16 11:18 WBC RBC Hgb Hct MCV MCH MCHC RDW Std Deviation RDW Coeff of Armaan Plt Count MPV Immature Gran % (Auto) Neut % (Auto) Lymph % (Auto) Gulf % (Auto) Eos % (Auto) Baso % (Auto) Neut # (Auto) Lymph # (Auto) Gulf # (Auto) Eos # (Auto) Baso # (Auto) Immature Gran # (Auto) APTT PTT Ratio Sodium Potassium Chloride Carbon Dioxide Anion Gap BUN Creatinine Est Cr Clr Drug Dosing Est GFR ( Amer) Est GFR (Non-Af Amer) BUN/Creatinine Ratio Glucose POC Glucose 97 336 H* 344 H* Calcium Total Bilirubin Direct Bilirubin AST ALT Alkaline Phosphatase Total Protein Albumin 10/23/19 10/23/19 10/23/19 14:06 16:24 20:34 WBC RBC Hgb Hct MCV MCH MCHC RDW Std Deviation RDW Coeff of Armaan Plt Count MPV Immature Gran % (Auto) Neut % (Auto) Lymph % (Auto) Gulf % (Auto) Eos % (Auto) Baso % (Auto) Neut # (Auto) Lymph # (Auto) Gulf # (Auto) Eos # (Auto) Baso # (Auto) Immature Gran # (Auto) APTT PTT Ratio Sodium Potassium Chloride Carbon Dioxide Anion Gap BUN Creatinine Est Cr Clr Drug Dosing Est GFR ( Amer) Est GFR (Non-Af Amer) BUN/Creatinine Ratio Glucose POC Glucose 207 H 147 H 77 Calcium Total Bilirubin Direct Bilirubin AST ALT Alkaline Phosphatase Total Protein Albumin Medications Administered Current Inpatient Medications Hydrocodone Bitart/Acetaminophen (Hydrocodone/Acetamophen 5/325mg Tab) 1 tab PO Q4H PRN PRN Reason: Pain Stop: 11/06/19 08:10 Last Admin: 10/23/19 19:18 Dose: 1 tab Documented by: Hydrocodone Bitart/Acetaminophen (Hydrocodone/Acetamophen 5/325mg Tab) 2 tab PO Q4H PRN PRN Reason: Pain Stop: 11/06/19 08:10 Albuterol (Albuterol 0.083% Nebu Soln 3 Ml Vial) 2.5 mg NEB Q6R PRN PRN Reason: Shortness Of Breath Or Wheezing Stop: 11/18/19 18:59 Last Admin: 10/21/19 21:39 Dose: 2.5 mg Documented by: Apixaban (Apixaban 2.5 Mg Tab) 2.5 mg PO BID [facility] Stop: 11/22/19 09:59 Last Admin: 10/23/19 20:42 Dose: 2.5 mg Documented by: Aspirin (Aspirin 81 Mg Ectab) 81 mg PO QAM [facility] Stop: 11/17/19 11:59 Last Admin: 10/23/19 09:04 Dose: 81 mg Documented by: Dextrose (Dextrose 50% 50 Ml Syringe) 25 - 50 ml IV UD PRN; Protocol PRN Reason: Hypoglycemia Protocol Stop: 11/16/19 18:42 Last Admin: 10/19/19 12:17 Dose: 25 ml Documented by: Glucagon (Glucagon For Inj 1 Mg Vial) 1 mg SQ UD PRN; Protocol PRN Reason: Hypoglycemia Protocol Stop: 11/16/19 18:42 Glucose (Glucose 10 Tabs/Tube) 4 - 8 tabs PO UD PRN; Protocol PRN Reason: Hypoglycemia Protocol Stop: 11/16/19 18:42 Glucose (Glucose 40% Gel 15 Gm Tube) 15 - 30 gm PO UD PRN; Protocol PRN Reason: Hypoglycemia Protocol Stop: 11/16/19 18:42 Hydralazine HCl (Hydralazine Hcl 20 Mg/Ml Vial) 10 mg IV Q8 PRN PRN Reason: Blood Pressure - High Stop: 11/16/19 18:46 Pantoprazole Sodium 40 mg/ (Syringe) 10 mls @ 5 mls/min IV DAILY@1100 [facility] Stop: 11/18/19 10:59 Last Admin: 10/23/19 09:04 Dose: 5 mls/min Documented by: Imipenem/Cilastatin Sodium 300 (mg/ Dextrose) 106 mls @ 100 mls/hr IV Q6H [facility]; Protocol Stop: 10/29/19 18:29 Last Infusion: 10/23/19 21:51 Dose: Infused Documented by: Insulin Aspart (Insulin Aspart 100 Units/Ml 3 Ml Pen) 0 units SC ACHS [facility] Stop: 11/19/19 21:44 Last Admin: 10/23/19 20:43 Dose: Not Given Documented by: Miscellaneous (Carbohydrates For Hypoglycemia ) 15 - 30 gm PO UD PRN PRN Reason: Hypoglycemia Protocol Stop: 11/16/19 18:42 Last Admin: 10/23/19 07:35 Dose: 15 gm Documented by: Miscellaneous Information (Pharmacy Glycemic Mgmt Consult) 1 ea N/A UD PRN; Protocol PRN Reason: Consult Stop: 11/16/19 19:54 Miscellaneous Information (Imipenem/Cilastatin Consult Active) 1 ea N/A UD PRN PRN Reason: Consult Stop: 11/18/19 18:28 Montelukast Sodium (Montelukast Sodium 10 Mg Tablet) 10 mg PO HS [facility] Stop: 11/16/19 20:59 Last Admin: 10/23/19 20:43 Dose: 10 mg Documented by: Morphine Sulfate (Morphine Sulfate 2 Mg/Ml Carp) 2 mg IV Q1H PRN PRN Reason: Pain Stop: 11/05/19 15:29 Last Admin: 10/22/19 22:17 Dose: 2 mg Documented by: Morphine Sulfate (Morphine Sulfate 4 Mg/Ml 1 Ml Carp\Vial) 4 mg IV Q1H PRN PRN Reason: Pain Stop: 11/05/19 15:29 Last Admin: 10/22/19 23:45 Dose: 4 mg Documented by: Ondansetron HCl (Ondansetron Inj 2 Mg/Ml 2 Ml Vial) 4 mg IV Q6H PRN PRN Reason: Nausea Stop: 11/16/19 18:00 Tamsulosin HCl (Tamsulosin Hcl 0.4 Mg Cap) 0.4 mg PO [facility] Stop: 11/17/19 20:59 Last Admin: 10/23/19 20:42 Dose: 0.4 mg Documented by: PG Care Time/CCT Total # of Minutes Spent Total Time Spent with Patient: Total time spent is greater than 50% in coordination of care (as documented) at patient's floor/unit and/or counseling patient: Coding Level of Care Code 91233 Subseq Hosp Care Lvl 3 Diagnoses Acute cholecystitis K81.0 Acute respiratory failure with hypoxia J96.01 RAÚL (acute kidney injury) N17.9 Acute diastolic (congestive) heart failure I50.31 Atrial fibrillation I48.91 Hypokalemia E87.6 Diabetes E11.9 Coronary artery disease I25.10 Elevated bilirubin R17 Gastric mass K31.89 Hypertension I10 Gout M10.9 Dyslipidemia E78.5 BPH (benign prostatic hyperplasia) N40.0 GERD (gastroesophageal reflux disease) K21.9 CKD (chronic kidney disease) stage 3, GFR 30-59 ml/min N18.3 History of TIA (transient ischemic attack) Z86.73 Nonsustained ventricular tachycardia I47.2 Metabolic acidosis E87.2 Hypoglycemia E16.2 Cholelithiasis K80.20 DVT prophylaxis Z29.9
[2019-10-24] MEDS: IMIPENEM/CILASTATIN SODIUM 300 MG in DEXTROSE 5% 100 ML IV SCH ×2 (01:56→09:44)
[2019-10-24] MEDS: HYDROCODONE/ACETAMOPHEN 5/325MG TAB PO PRN ×4 (02:03→21:10)
[2019-10-24 06:14] LABS: Basophils # (auto) 0.01 K/uL (0-0.2); Basophils % (auto) 0.1 %; Eosinophils # (auto) 0.13 K/uL (0-0.5); Hematocrit (blood only) 30.7 % (42-52); Hemoglobin 10.7 g/dL (14.0-18.0); Immature Granulocytes # (auto) 0.16 K/uL (0.00-0.02); Immature Granulocytes % (auto) 1.2 %; Lymphocytes # (auto) 1.28 K/uL (1.2-3.4); Lymphocytes % (auto) 9.4 %; Mean Corpuscular Hemoglobin 29.9 pg (25-34); Mean Corpuscular Hgb Conc 34.9 g/dL (32-36); Mean Corpuscular Volume 85.8 fL (80-100); Mean Platelet Volume 9.7 fL (7.4-10.4); Monocytes % (auto) 6.6 %; Neutrophils % (auto) 81.7 %; Platelet Count 225 K/uL (130-400); RDW Coefficient of Variation 15.5 % (11.5-14.5); RDW Standard Deviation 48.7 fL (36.4-46.3); Red Blood Count 3.58 M/uL (4.7-6.1); White Blood Count 13.68 K/uL (4.8-10.8)
[2019-10-24 06:29] LABS: Partial Thromboplastin Ratio 1.4; Partial Thromboplastin Time 38.5 Seconds (21.0-31.0)
[2019-10-24 06:46] LABS: BUN Creatinine Ratio 19.5 (10-20); Calcium 7.7 mg/dl (8.5-10.1); Creatinine Clr Calc Pharmacy 41.5 ml/min; Est GFR (African American) 56.4; Est GFR (Non-African American) 48.6; Potassium 3.3 mmol/L (3.5-5.1)
--- NOTE | 2019-10-24 08:03 | Surgery Progress Note ---
Date of Service October 24, 2019 Assessment & Plan (1) Cholelithiasis: POD#2 laparoscopic cholecystectomy with biopsy of gastric mass WBC downtrending, 13 today from 15 Gastric mass biopsy returned + GIST Patients VSS and he is saturating well on room air Pain is being managed with prn medications; surgical incisions c/d/i; LULA drain removed yesterday PT evaluated patient yesterday and recommended home with continued PT services; patient prefers to go to outpatient PT therapy He is tolerating a diet of what is appetizing to him Loreleiquis started yesterday Dispo planning per medicine Pt should follow up with Dr. Cueva in clinic within 1-2 weeks as above. doing ok from my standpoint. ok for d/c from my standpoint when ok with primary service. discussed his path report and the implications. f/u in office in 1-2 weeks. Admission and Anticipated Discharge Date Admission Date: October 17, 2019 Subjective Patient questioning when he can go home. He states he tolerated some regular food yesterday, but the options were not very appetizing to him. He still has some right sided abdominal pain, particularly noticed when taking deep breaths, but has been overall manageable. He denies any nausea/vomiting, or shortness of breath. He has been passing gas as of yesterday. He states he does feel somewhat deconditioned from baseline. Physical Exam Physical Exam: awake/alert Respiratory: normal respiratory effort on room air Gastrointestinal (Abdomen): Inspection/Auscultation: + abdominal surgical incision (c/d/i with dermabond overtop, no sign of infection) Percussion/Palpation: + abdomen tender (mild ttp ruq) and abdomen soft Results & Data ([facility]) Vital Signs (Past 12 Hours) Vital Signs Temp Pulse Pulse Resp BP BP Pulse Ox 10/24/19 04:50 37.3 C 80 18 134/74 94 10/23/19 23:57 77 10/23/19 23:37 37.1 C 77 18 142/74 H 94 10/23/19 20:06 37.1 C 76 18 156/85 H 91 PG Care Time/CCT Total # of Minutes Spent Total Time Spent with Patient: Total time spent is greater than 50% in coordination of care (as documented) at patient's floor/unit and/or counseling patient: Coding Level of Care Code None Diagnoses Cholelithiasis K80.20
[2019-10-24] MEDS: APIXABAN 2.5 MG TAB PO SCH ×2 (08:07→21:11)
[2019-10-24] MEDS: ASPIRIN 81 MG ECTAB PO SCH (08:07)
[2019-10-24] MEDS: INSULIN ASPART 100 UNITS/ML 3 ML PEN SC SCH ×4 (08:08→20:43)
[2019-10-24] MEDS ORDERED: INSULIN GLARGINE SOLOSTAR 100 UNITS/ML 3 ML PEN SC ONE (09:00)
[2019-10-24] MEDS: POTASSIUM CHLORIDE 20 MEQ TABCR PO SCH ×2 (09:20→21:11)
--- NOTE | 2019-10-24 10:51 | Pharmacy Report ---
Pharmacy Glycemic Short Note 2 - Date of Service October 24, 2019 - Glycemic Short BSG Results (Last 24 hours): 10/23/19 10/23/19 10/23/19 11:16 11:18 14:06 Glucose POC Glucose 336 H* 344 H* 207 H 10/23/19 10/23/19 10/24/19 16:24 20:34 05:46 Glucose 205 H POC Glucose 147 H 77 10/24/19 07:33 Glucose POC Glucose 204 H OUTPATIENT ANTIDIABETIC REGIMEN: * Trulicity 1.5mg SQ Weekly * Januvia 50mg PO Daily * A1c = 8.5% (10/18/19) ASSESSMENT: * POD #2 s/p laparoscopic cholecystectomy * Continues on Primaxin 300 mg IV q6h * Patient received 42 units of insulin yesterday * 14 units of basal and 21 units of prandial/correctional + 7 units of IV insulin bolus for hyperglycemia * BSGs have been very labile/brittle throughout admission - large swings between high and low BSGs * Erratic PO intake (only eats what he likes) may be contributing * AM fasting BSG elevated this AM at 204 mg/dl. Estimating true basal needs are ~ 18 units/day. However, patient only received 14 units yesterday. Will increase to 20 units SQ x 1 today and then resume 18 units daily tomorrow. Will continue to titrate based on BSG trends * Pt is very CHO sensitive. Requires aggressive CHO ratio compared to basal insulin needs. CHO ratio tightened at lunch yesterday - will continue same orders this AM and re-eval at lunch time. PLAN FOR INPATIENT GLYCEMIC CONTROL: * Hold outpatient oral diabetes medications and Trulicity * Basal insulin - increase * Lantus 20 units SC today x 1 then 18 units SQ daily starting tomorrow * Bolus insulin * NovoLog per scale ACHS or Q6hrs while NPO * Goal Range: Low 90 mg/dL - High 150 mg/dL * Correction Factor: 15 mg/dL/unit * Nutritional / Prandial insulin per carb ratio of 1 unit per 4 grams CHO consumed
[2019-10-24] MEDS: CIPROFLOXACIN 500 MG TAB PO SCH ×2 (12:28→21:12)
[2019-10-24] MEDS: metroNIDAZOLE 500 MG TAB PO SCH ×2 (14:19→21:11)
--- NOTE | 2019-10-24 14:56 | Hospitalist Progress Note ---
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 Smith have him follow up for treatment (2) Acute cholecystitis: Presented with right-sided abdominal pain, nausea/vomiting, with leukocytosis and low-grade fevers here. Found to have cholelithiasis and distended gallbladder on CT scan and ultrasound, although no definite signs of acute cholecystitis on imaging. Total bilirubin mildly elevated but LFTs otherwise normal. He had an MRCP which again showed cholelithiasis with mildly distended gallbladder, no convincing evidence of acute cholecystitis, no CBD dilatation, with an indeterminate 4.1 cm mass lesion along greater curvature of the stomach appearance favors a GIST WBC down to 13k, likely from surgery, no fever but low grade temperature, continue antibiotics for 7 days, change to Cipro/Flagyl today HIDA scan obtained on 10/19 which does indeed confirm acute cholecystitis lap elsie on 10/21, tolerated well path showed necrotizing cholecystitis removed LULA drain 10/22 as it may be contributing to discomfort PT ordered to get patient moving diet advanced per surgery + flatus, no BM yet cleared for discharge from surgery perspective (3) Acute respiratory failure with hypoxia: Developed acute respiratory failure with hypoxia on 10/18 likely secondary to pulmonary edema from volume overload Also with diffuse wheezing that responded to bronchodilators-question if has underlying reactive airway disease given history of allergic rhinitis and Singulair use No history of smoking Chest x-ray with pulmonary edema and cardiomegaly resolved with Lasix IV again some hypoxia on 10/21, resolved with Lasix no signs of volume overload at this time, monitor closely, low threshold to give Lasix 40mg IV breathing room air comfortably today (4) RAÚL (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 down to 1.2 for three days, making adequate urine honeycutt pulled 10/23 Lasix 40mg IV PRN, may start to mobilize fluids from third spacing (5) Acute diastolic (congestive) heart failure: very sensitive to fluid shifts, was on minimal fluid at 50cc/hr then had some mild pulmonary edema but responding immediately to Lasix lungs are clear, breathing comfortably on RA at this time acute failure resolved, monitor closely (6) Atrial fibrillation: Went into Afib during episode of resp distress rates controlled, asymptomatic likely PAF given h/o TIAs over the years without other explanation [id number] score high, started heparin gtt, drip was stopped prior to surgery Appreciate Cardiology consultation plan for [facility] on discharge, started on 10/22 (7) Hypokalemia: low at 3.3, PO replacement BID ordered (8) Diabetes: holding home po meds labile sugars Novolog SS hypoglycemic this evening (9) Coronary artery disease: Patient has a history of a distant CABG including a FLORES he has had no coronary symptoms and has not taken nitro for some time. -Okay to continue aspirin as per surgery He is not on a beta-bess due to bradycardia and his statin is being held while n.p.o. Preoperative ECG as above, no ischemia (10) Elevated bilirubin: Bilirubin mildly elevated on admission, down to 1.7 today no evidence of obstruction on MRCP -Follow LFTs (11) Hypertension: Blood pressures became quite elevated with respiratory distress and volume overload Now improved with IV lasix x 1 Holding home amlodipine while n.p.o., can give IV hydralazine as needed follow BPs (12) Gout: No acute flares Holding home allopurinol (13) Dyslipidemia: Holding statin while n.p.o. (14) BPH (benign prostatic hyperplasia): Patient reports difficulty with urination at times He is on tamsulosin at home-we will continue this while here despite being n.p.o. so that he does not have any issues with urinary retention (15) GERD (gastroesophageal reflux disease): Continue IV Protonix (16) CKD (chronic kidney disease) stage 3, GFR 30-59 ml/min: Unknown baseline creatinine, but 1.5 here on labs on admission and then improved to 1.34 Now with RAÚL Cr down to 1.4 today, gentle fluids (17) History of TIA (transient ischemic attack): Reports 3 different episodes of either visual symptoms or slurred speech over the last 20 years, but had the recent episode at least a month ago of right-sided visual blurriness that lasted 1 minute He reports he had an outpatient brain MRI and carotid ultrasound of which I do not have the results Carotid ultrasound ordered here by surgery-normal Now with new onset Afib discovered-likely culprit for TIAs -start heparin gtt as above -Continue aspirin -do NOT restart Plavix on discharge, but rather should go on Eliquis 2.5mg po bid when ok with Surgery (18) Nonsustained ventricular tachycardia: small runs, asymptomatic -replace IV KCl follow BMP, Mag and replace as needed -continue tele monitoring checking ECHO for EF cannot add on beta bess due to rates in the 60s in Afib (19) Metabolic acidosis: resolved (20) Hypoglycemia: resolved (21) Cholelithiasis: As above (22) DVT prophylaxis: SCDs, Eliquis Disposition-continued stay on PCU could be ready for d/c as early as tomorrow based on PO intake, strength and balance with therapy Admission and Anticipated Discharge Date Admission Date: October 17, 2019 Subjective patient with less RUQ pain today, no nausea, he is tolerating diet has pain with deep inspiration but he is working with incentive spirometer, up to 1500mL several times, he showed me reviewed labs, still with leukocytosis, WBC 13k, Hb 10.7, K is 3.3, Cr 1.34 no signs of volume overload, breathing comfortably at rest on room air discussed with general surgery, they will sign off, okay for discharge from their perspective encouraged him to ambulate, PT ordered to assess strength had a low grade temperature today but never a true fever changed abx from Imipenem to Cipro/Flagyl, monitor for fever Review of Systems Review of Systems: All systems reviewed & are unremarkable except as noted in Subjective Constitutional: + fatigue and + weakness; no fever, no chills and no sweats Respiratory: + dyspnea on exertion and + pain on inspiration; no cough and no dyspnea Cardiovascular: no chest pain and no edema Gastrointestinal: + abdominal pain (RUQ) and + constipation; no nausea, no vomiting, no diarrhea/loose stools and no melena Genitourinary: no dysuria Physical Exam Constitutional: WD/WN, vitals as above Eyes: PERRL, conjunctivae normal, anicteric sclerae ENMT: external ear and nose normal, oropharynx normal Neck: trachea midline, no thyromegaly Respiratory: normal respiratory effort, lungs clear to auscultation Cardiovascular: Rate/Rhythm: regular rate and + irregularly irregular Heart Sounds: normal S1 and normal S2; no murmur Vessels: no JVD Extremities: normal capillary refill; no edema Gastrointestinal (Abdomen): Inspection/Auscultation: abdomen normal to inspection and normal bowel sounds; abdomen not distended Percussion/Palpation: + abdomen tender (RUQ) and abdomen soft; no guarding and abdomen not rigid Musculoskeletal: no cyanosis or clubbing, extremities motor strength 5/5 Skin: no rashes, warm and dry Neurologic: patellar DTR's 2+ bilat, sensation intact and PERRL, EOMI, accommodation nl, no face palsy, no dysarthria Psychiatric: A+Ox3, euthymic affect Lymphatic: no cervical or axillary lymphadenopathy Results & Data Results & Data ([facility]) Vital Signs (Past 12 Hours) Vital Signs Temp Pulse Pulse Pulse Resp BP BP 10/24/19 11:05 37.2 C 76 155/69 H 10/24/19 08:12 37.7 C H 98 H 19 177/88 H 10/24/19 08:00 80 10/24/19 04:50 37.3 C 80 18 134/74 Pulse Ox 10/24/19 11:05 94 10/24/19 08:12 92 10/24/19 08:00 10/24/19 04:50 94 Laboratory Results Laboratory Results - last 24 hr 10/22/19 10/23/19 10/23/19 Unknown 16:24 20:34 WBC RBC Hgb Hct MCV MCH MCHC RDW Std Deviation RDW Coeff of Armaan Plt Count MPV Immature Gran % (Auto) Neut % (Auto) Lymph % (Auto) [place] % (Auto) Eos % (Auto) Baso % (Auto) Neut # (Auto) Lymph # (Auto) [place] # (Auto) Eos # (Auto) Baso # (Auto) Immature Gran # (Auto) APTT PTT Ratio Sodium Potassium Chloride Carbon Dioxide Anion Gap BUN Creatinine Est Cr Clr Drug Dosing Est GFR ( Amer) Est GFR (Non-Af Amer) BUN/Creatinine Ratio Glucose POC Glucose 147 H 77 Calcium Ref Lab Test Result Pending 10/24/19 10/24/19 10/24/19 05:46 05:46 05:46 WBC 13.68 H RBC 3.58 L Hgb 10.7 L Hct 30.7 L MCV 85.8 MCH 29.9 MCHC 34.9 RDW Std Deviation 48.7 H RDW Coeff of Armaan 15.5 H Plt Count 225 MPV 9.7 Immature Gran % (Auto) 1.2 Neut % (Auto) 81.7 Lymph % (Auto) 9.4 [place] % (Auto) 6.6 Eos % (Auto) 1.0 Baso % (Auto) 0.1 Neut # (Auto) 11.20 H Lymph # (Auto) 1.28 [place] # (Auto) 0.90 H Eos # (Auto) 0.13 Baso # (Auto) 0.01 Immature Gran # (Auto) 0.16 H APTT 38.5 H PTT Ratio 1.4 Sodium 133 L Potassium 3.3 L Chloride 101 Carbon Dioxide 27 Anion Gap 5.0 BUN 26 H Creatinine 1.34 Est Cr Clr Drug Dosing 41.5 Est GFR ( Amer) 56.4 Est GFR (Non-Af Amer) 48.6 BUN/Creatinine Ratio 19.5 Glucose 205 H POC Glucose Calcium 7.7 L Ref Lab Test Result 10/24/19 10/24/19 07:33 11:26 WBC RBC Hgb Hct MCV MCH MCHC RDW Std Deviation RDW Coeff of Armaan Plt Count MPV Immature Gran % (Auto) Neut % (Auto) Lymph % (Auto) [place] % (Auto) Eos % (Auto) Baso % (Auto) Neut # (Auto) Lymph # (Auto) [place] # (Auto) Eos # (Auto) Baso # (Auto) Immature Gran # (Auto) APTT PTT Ratio Sodium Potassium Chloride Carbon Dioxide Anion Gap BUN Creatinine Est Cr Clr Drug Dosing Est GFR ( Amer) Est GFR (Non-Af Amer) BUN/Creatinine Ratio Glucose POC Glucose 204 H 166 H Calcium Ref Lab Test Result Medications Administered Current Inpatient Medications Hydrocodone Bitart/Acetaminophen (Hydrocodone/Acetamophen 5/325mg Tab) 1 tab PO Q4H PRN PRN Reason: Pain Stop: 11/06/19 08:10 Last Admin: 10/24/19 08:06 Dose: 1 tab Documented by: Hydrocodone Bitart/Acetaminophen (Hydrocodone/Acetamophen 5/325mg Tab) 2 tab PO Q4H PRN PRN Reason: Pain Stop: 11/06/19 08:10 Albuterol (Albuterol 0.083% Nebu Soln 3 Ml Vial) 2.5 mg NEB Q6R PRN PRN Reason: Shortness Of Breath Or Wheezing Stop: 11/18/19 18:59 Last Admin: 10/21/19 21:39 Dose: 2.5 mg Documented by: Apixaban (Apixaban 2.5 Mg Tab) 2.5 mg PO BID [facility] Stop: 11/22/19 09:59 Last Admin: 10/24/19 08:07 Dose: 2.5 mg Documented by: Aspirin (Aspirin 81 Mg Ectab) 81 mg PO QAM [facility] Stop: 11/17/19 11:59 Last Admin: 10/24/19 08:07 Dose: 81 mg Documented by: Ciprofloxacin (Ciprofloxacin 500 Mg Tab) 500 mg PO BID [facility] Stop: 11/03/19 08:59 Last Admin: 10/24/19 12:28 Dose: 500 mg Documented by: Dextrose (Dextrose 50% 50 Ml Syringe) 25 - 50 ml IV UD PRN; Protocol PRN Reason: Hypoglycemia Protocol Stop: 11/16/19 18:42 Last Admin: 10/19/19 12:17 Dose: 25 ml Documented by: Glucagon (Glucagon For Inj 1 Mg Vial) 1 mg SQ UD PRN; Protocol PRN Reason: Hypoglycemia Protocol Stop: 11/16/19 18:42 Glucose (Glucose 10 Tabs/Tube) 4 - 8 tabs PO UD PRN; Protocol PRN Reason: Hypoglycemia Protocol Stop: 11/16/19 18:42 Glucose (Glucose 40% Gel 15 Gm Tube) 15 - 30 gm PO UD PRN; Protocol PRN Reason: Hypoglycemia Protocol Stop: 11/16/19 18:42 Hydralazine HCl (Hydralazine Hcl 20 Mg/Ml Vial) 10 mg IV Q8 PRN PRN Reason: Blood Pressure - High Stop: 11/16/19 18:46 Insulin Aspart (Insulin Aspart 100 Units/Ml 3 Ml Pen) 0 units SC ACHS [facility] Stop: 11/19/19 21:44 Last Admin: 10/24/19 12:29 Dose: 8 units Documented by: Insulin Glargine (Insulin Glargine Solostar 100 Units/Ml 3 Ml Pen) 18 units SC DAILY [facility] Stop: 11/24/19 08:59 Metronidazole (Metronidazole 500 Mg Tab) 500 mg PO TID [facility] Stop: 11/03/19 13:59 Last Admin: 10/24/19 14:19 Dose: 500 mg Documented by: Miscellaneous (Carbohydrates For Hypoglycemia ) 15 - 30 gm PO UD PRN PRN Reason: Hypoglycemia Protocol Stop: 11/16/19 18:42 Last Admin: 10/23/19 07:35 Dose: 15 gm Documented by: Miscellaneous Information (Pharmacy Glycemic Mgmt Consult) 1 ea N/A UD PRN; Protocol PRN Reason: Consult Stop: 11/16/19 19:54 Montelukast Sodium (Montelukast Sodium 10 Mg Tablet) 10 mg PO HS [facility] Stop: 11/16/19 20:59 Last Admin: 10/23/19 20:43 Dose: 10 mg Documented by: Morphine Sulfate (Morphine Sulfate 2 Mg/Ml Carp) 2 mg IV Q1H PRN PRN Reason: Pain Stop: 11/05/19 15:29 Last Admin: 10/22/19 22:17 Dose: 2 mg Documented by: Morphine Sulfate (Morphine Sulfate 4 Mg/Ml 1 Ml Carp\Vial) 4 mg IV Q1H PRN PRN Reason: Pain Stop: 11/05/19 15:29 Last Admin: 10/22/19 23:45 Dose: 4 mg Documented by: Ondansetron HCl (Ondansetron Inj 2 Mg/Ml 2 Ml Vial) 4 mg IV Q6H PRN PRN Reason: Nausea Stop: 11/16/19 18:00 Pantoprazole Sodium (Pantoprazole 40 Mg Tab) 40 mg PO QAM [facility] Stop: 11/24/19 08:59 Potassium Chloride (Potassium Chloride 20 Meq Tabcr) 20 meq PO BID [facility] Stop: 11/23/19 08:59 Last Admin: 10/24/19 09:20 Dose: 20 meq Documented by: Tamsulosin HCl (Tamsulosin Hcl 0.4 Mg Cap) 0.4 mg PO HS [facility] Stop: 11/17/19 20:59 Last Admin: 10/23/19 20:42 Dose: 0.4 mg Documented by: PG Care Time/CCT Total # of Minutes Spent Total Time Spent with Patient: Total time spent is greater than 50% in coordination of care (as documented) at patient's floor/unit and/or counseling patient: Coding Level of Care Code 89083 Subseq Hosp Care Lvl 3 Diagnoses Gastric mass K31.89 Acute cholecystitis K81.0 Acute respiratory failure with hypoxia J96.01 RAÚL (acute kidney injury) N17.9 Acute diastolic (congestive) heart failure I50.31 Atrial fibrillation I48.91 Hypokalemia E87.6 Diabetes E11.9 Coronary artery disease I25.10 Elevated bilirubin R17 Hypertension I10 Gout M10.9 Dyslipidemia E78.5 BPH (benign prostatic hyperplasia) N40.0 GERD (gastroesophageal reflux disease) K21.9 CKD (chronic kidney disease) stage 3, GFR 30-59 ml/min N18.3 History of TIA (transient ischemic attack) Z86.73 Nonsustained ventricular tachycardia I47.2 Metabolic acidosis E87.2 Hypoglycemia E16.2 Cholelithiasis K80.20 DVT prophylaxis Z29.9
[2019-10-24] MEDS: CARBOHYDRATES FOR HYPOGLYCEMIA PO PRN ×2 (20:42→23:52)
[2019-10-24] MEDS: TAMSULOSIN HCL 0.4 MG CAP PO SCH (21:11)
[2019-10-24] MEDS: MONTELUKAST SODIUM 10 MG TABLET PO SCH (21:12)
[2019-10-25] MEDS: HYDROCODONE/ACETAMOPHEN 5/325MG TAB PO PRN (03:16)
[2019-10-25] MEDS ORDERED: INSULIN ASPART 100 UNITS/ML 3 ML PEN SC SCH ×2 (04:00)
[2019-10-25 07:56] LABS: Hematocrit (blood only) 31.8 % (42-52); Hemoglobin 10.9 g/dL (14.0-18.0); Mean Corpuscular Hemoglobin 29.7 pg (25-34); Mean Corpuscular Hgb Conc 34.3 g/dL (32-36); Mean Corpuscular Volume 86.6 fL (80-100); Mean Platelet Volume 9.4 fL (7.4-10.4); Platelet Count 302 K/uL (130-400); RDW Coefficient of Variation 15.5 % (11.5-14.5); RDW Standard Deviation 49.5 fL (36.4-46.3); Red Blood Count 3.67 M/uL (4.7-6.1); White Blood Count 12.65 K/uL (4.8-10.8)
[2019-10-25] MEDS: INSULIN ASPART 100 UNITS/ML 3 ML PEN SC SCH ×4 (08:08→21:19)
[2019-10-25] MEDS: PANTOprazole 40 MG TAB PO SCH (08:09)
[2019-10-25] MEDS: ASPIRIN 81 MG ECTAB PO SCH (08:09)
[2019-10-25] MEDS: CIPROFLOXACIN 500 MG TAB PO SCH (08:10)
[2019-10-25] MEDS: metroNIDAZOLE 500 MG TAB PO SCH (08:10)
[2019-10-25] MEDS: APIXABAN 2.5 MG TAB PO SCH ×2 (08:10→20:59)
[2019-10-25] MEDS: POTASSIUM CHLORIDE 20 MEQ TABCR PO SCH ×2 (08:10→21:00)
[2019-10-25 08:26] LABS: Albumin Level 2.2 gm/dl (3.4-5.0); BUN Creatinine Ratio 18.5 (10-20); Calcium 8.4 mg/dl (8.5-10.1); Creatinine Clr Calc Pharmacy 46.4 ml/min; Est GFR (African American) 63.8; Potassium 3.3 mmol/L (3.5-5.1)
[2019-10-25 08:31] LABS: Albumin Globulin Ratio 0.5 (0.9-2); Bilirubin,Total 1.6 mg/dl (0.2-1); Total Protein 6.2 gm/dl (6.4-8.2)
[2019-10-25] MEDS ORDERED: INSULIN GLARGINE SOLOSTAR 100 UNITS/ML 3 ML PEN SC SCH (09:00)
--- NOTE | 2019-10-25 09:00 | Pharmacy Report ---
Pharmacy Glycemic Short Note 2 - Date of Service October 25, 2019 - Glycemic Short BSG Results (Last 24 hours): 10/24/19 10/24/19 10/24/19 11:26 16:31 20:40 Glucose POC Glucose 166 H 136 H 69 L* 10/24/19 10/24/19 10/24/19 20:41 20:59 23:48 Glucose POC Glucose 63 L* 84 66 L* 10/24/19 10/25/19 10/25/19 23:49 00:11 03:19 Glucose POC Glucose 62 L* 88 108 H 10/25/19 10/25/19 10/25/19 04:54 07:35 07:36 Glucose 130 H POC Glucose 131 H 127 H OUTPATIENT ANTIDIABETIC REGIMEN: * Trulicity 1.5mg SQ Weekly * Januvia 50mg PO Daily * A1c = 8.5% (10/18/19) ASSESSMENT: * POD #2 s/p laparoscopic cholecystectomy * abx changed to PO cipro/flagyl * Patient received 45 units of insulin yesterday * 20 units of basal and 25 units of prandial/correctional * Pt with LOW BSG at HS and midnight.BSGs have been very labile/brittle throughout admission - large swings between high and low BSGs * Erratic PO intake (only eats what he likes) may be contributing * AM lows are a result of too much basal insulin - have decreased dose today to estimated true basal needs (Lantus 18 units daily) * HS lows seem to be a result of too much NovoLog. BSGs tend to start off high and then trend downwards throughout the day. Will loosen CF/CR with dinner and HS to prevent HS lows. PLAN FOR INPATIENT GLYCEMIC CONTROL: * Hold outpatient oral diabetes medications and Trulicity * Basal insulin * Lantus 18 units SQ daily * Bolus insulin: loosen parameters for dinner & HS to prevent night time lows from "stacking" * NovoLog per scale ACHS or Q6hrs while NPO * Goal Range: Low 90 mg/dL - High 150 mg/dL * Correction Factor: 15 mg/dL/unit for Breakfast/lunch & 20mg/dl/unit for dinner and HS * Nutritional / Prandial insulin per carb ratio of 1 unit per 4 grams CHO consumed at breakfast/lunch & 1 unit per 4 grams CHO consumed at dinner/HS
--- NOTE | 2019-10-25 09:09 | Surgery Progress Note ---
Date of Service October 25, 2019 Assessment & Plan (1) Acute cholecystitis: Doing as expected from my standpoint. He could be discharged whenever the primary team is okay with it. I am going to present him at tumor board next week to discuss treatment of his newly diagnosed gist tumor. discussed discharge instructions. f/u with me in 1-2 weeks. (2) Gastric mass: Admission and Anticipated Discharge Date Admission Date: October 17, 2019 Subjective pt seen. no new complaints. wants to go home Physical Exam Physical Exam: alert. nad abd: soft. expected tenderness. no sign of infection. Results & Data ([facility]) Vital Signs (Past 12 Hours) Vital Signs Temp Pulse Pulse Resp BP BP Pulse Ox 10/25/19 08:00 37.0 C 79 18 177/79 H 94 10/25/19 07:56 70 10/25/19 04:48 36.7 C 80 16 162/84 H 96 10/24/19 23:40 36.8 C 76 16 160/75 H 96 10/24/19 23:12 82 PG Care Time/CCT Total # of Minutes Spent Total Time Spent with Patient: Total time spent is greater than 50% in coordination of care (as documented) at patient's floor/unit and/or counseling patient: Coding Level of Care Code None Diagnoses Acute cholecystitis K81.0 Gastric mass K31.89
[2019-10-25] MEDS ORDERED: ONDANSETRON INJ 2 MG/ML 2 ML VIAL IV STA (13:17)
--- NOTE | 2019-10-25 14:25 | XRay Report ---
CHEST AND ABDOMEN 2 VIEWS HISTORY: Distension and vomiting, post op cholecystectomy COMPARISON: Chest 10/20/2019. FINDINGS: No pneumothorax. Small bilateral pleural effusions. The heart is mildly enlarged. Mild cent ral pulmonary vascular congestion without overt edema. This has improved. Bibasilar linear densities. Poststernotomy changes. No pneumoperitoneum. No pneumatosis. Prior cholecystectomy. Mildly dilated g as and fluid-filled loops of small large bowel seen within the abdomen. The colon measures up to 6.8 cm in diameter. The small bowel loops measure up to 3.3 cm in diameter. Findings favor a postoperativ e ileus. Right shoulder prosthesis. IMPRESSION: 1. Mild congestive change and small bilateral pleural effusions. 2. Bibasilar linear densities are nonspecific but favor atelectasis. A pneumonia could also have a si milar appearance. 3. Mildly dilated gas and fluid-filled loops of large and small bowel seen within the abdomen. This l ikely represents a postoperative ileus. ACT 112: Negative or not required by law. Electronically signed by: Adolfo Gurrola M.D. 10/25/2019 2:23 PM
[2019-10-25] MEDS ORDERED: bisacodyL 10 MG SUPP PR STA (14:48)
[2019-10-25] MEDS ORDERED: FUROSEMIDE 20 MG in SYRINGE 0 ML IV ONE (15:00)
--- NOTE | 2019-10-25 16:00 | Hospitalist Progress Note ---
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 Smith, if it is resectable then that is treatment (2) Acute cholecystitis: Presented with right-sided abdominal pain, nausea/vomiting, with leukocytosis and low-grade fevers here. Found to have cholelithiasis and distended gallbladder on CT scan and ultrasound, although no definite signs of acute cholecystitis on imaging. Total bilirubin mildly elevated but LFTs otherwise normal. He had an MRCP which again showed cholelithiasis with mildly distended gallbladder, no convincing evidence of acute cholecystitis, no CBD dilatation, with an indeterminate 4.1 cm mass lesion along greater curvature of the stomach appearance favors a GIST WBC down to 12k, likely from surgery, no fever but low grade temperature, stop antibiotics source of infection removed, no need for Cipro/Flagyl, especially if it is causing GI upset HIDA scan obtained on 10/19 which does indeed confirm acute cholecystitis lap elsie on 10/21, tolerated well path showed necrotizing cholecystitis removed LULA drain 10/22 as it may be contributing to discomfort PT ordered to get patient moving, he is not very motivated, he wants home health visits diet advanced per surgery + flatus, no BM yet no with post operative ileus, down grade to clears, give suppository encourage to keep active (3) Acute respiratory failure with hypoxia: Developed acute respiratory failure with hypoxia on 10/18 likely secondary to pulmonary edema from volume overload Also with diffuse wheezing that responded to bronchodilators-question if has underlying reactive airway disease given history of allergic rhinitis and Singulair use No history of smoking Chest x-ray with pulmonary edema and cardiomegaly resolved with Lasix IV again some hypoxia on 10/21, resolved with Lasix no signs of volume overload at this time, monitor closely, low threshold to give Lasix 40mg IV breathing room air comfortably today (4) RAÚL (acute kidney injury): 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 down to 1.2 for four days, making adequate urine honeycutt pulled 10/23 Lasix 40mg IV PRN, may start to mobilize fluids from third spacing will give Lasix 20mg IV x one today (5) Acute diastolic (congestive) heart failure: very sensitive to fluid shifts, was on minimal fluid at 50cc/hr then had some mild pulmonary edema but responding immediately to Lasix lungs are clear, breathing comfortably on RA CXR today with congestion, pulmonary edema will give Lasix 20mg IV x 1 (6) Atrial fibrillation: Went into Afib during episode of resp distress rates controlled, asymptomatic likely PAF given h/o TIAs over the years without other explanation [id number] score high, started heparin gtt, drip was stopped prior to surgery Appreciate Cardiology consultation plan for Eliquis on discharge, started on 10/22 (7) Hypokalemia: low again at 3.3, PO replacement BID ordered (8) Diabetes: holding home po meds labile sugars Novolog SS hypoglycemic yesterday, nothing today (9) Coronary artery disease: Patient has a history of a distant CABG including a FLORES he has had no coronary symptoms and has not taken nitro for some time. -Okay to continue aspirin as per surgery He is not on a beta-bess due to bradycardia and his statin is being held while n.p.o. Preoperative ECG as above, no ischemia (10) Elevated bilirubin: Bilirubin mildly elevated on admission, down to 1.7 today no evidence of obstruction on MRCP -Follow LFTs (11) Hypertension: Blood pressures became quite elevated with respiratory distress and volume overload Now improved with IV lasix x 1 Holding home amlodipine while n.p.o., can give IV hydralazine as needed follow BPs (12) Gout: No acute flares Holding home allopurinol (13) Dyslipidemia: Holding statin while n.p.o. (14) BPH (benign prostatic hyperplasia): Patient reports difficulty with urination at times He is on tamsulosin at home-we will continue this while here despite being n.p.o. so that he does not have any issues with urinary retention (15) GERD (gastroesophageal reflux disease): Continue IV Protonix (16) CKD (chronic kidney disease) stage 3, GFR 30-59 ml/min: Unknown baseline creatinine, but 1.5 here on labs on admission and then improved to 1.34 Now with RAÚL Cr down to 1.2 today, gentle fluids (17) History of TIA (transient ischemic attack): Reports 3 different episodes of either visual symptoms or slurred speech over the last 20 years, but had the recent episode at least a month ago of right-sided visual blurriness that lasted 1 minute He reports he had an outpatient brain MRI and carotid ultrasound of which I do not have the results Carotid ultrasound ordered here by surgery-normal Now with new onset Afib discovered-likely culprit for TIAs -start heparin gtt as above -Continue aspirin -do NOT restart Plavix on discharge, but rather should go on Eliquis 2.5mg po bid when ok with Surgery (18) Nonsustained ventricular tachycardia: small runs, asymptomatic -replace IV KCl follow BMP, Mag and replace as needed -continue tele monitoring checking ECHO for EF cannot add on beta bess due to rates in the 60s in Afib (19) Metabolic acidosis: resolved (20) Hypoglycemia: resolved (21) Cholelithiasis: As above (22) DVT prophylaxis: SCDs, Eliquis Disposition-continued stay on PCU could be ready for d/c as early as tomorrow based on PO intake, strength and balance with therapy Admission and Anticipated Discharge Date Admission Date: October 17, 2019 Subjective patient was feeling okay this morning, ate breakfast he was cleared to go home by surgery around 1130am he had nausea and vomited several times he said he was feeling bloated, no BM yet, could not tell me if he had passed flatus today reviewed labs, WBC and H/H stable, K is 3.3, Cr is 1.21 checked obstruction series, shows some pulmonary congestion, more importantly it shows early ileus give suppository, stay well hydrated, down to liquid diet for time being Review of Systems Review of Systems: All systems reviewed & are unremarkable except as noted in Subjective Respiratory: no cough and no dyspnea Cardiovascular: no chest pain, no dyspnea at rest, no dyspnea on exertion, no syncope and no edema Gastrointestinal: + abdominal pain, + nausea, + vomiting and + diarrhea/loose stools; no constipation Physical Exam Constitutional: WD/WN, vitals as above Eyes: PERRL, conjunctivae normal, anicteric sclerae ENMT: external ear and nose normal, oropharynx normal Neck: trachea midline, no thyromegaly Respiratory: normal respiratory effort, lungs clear to auscultation Cardiovascular: Rate/Rhythm: regular rate and + irregularly irregular Heart Sounds: normal S1 and normal S2; no murmur Vessels: no JVD Extremities: n ormal capillary refill; no edema Gastrointestinal (Abdomen): Inspection/Auscultation: + abdomen distended; no abdominal surgical drain present Percussion/Palpation: + abdomen tender (RUQ) and abdomen soft; no guarding and abdomen not rigid Musculoskeletal: no cyanosis or clubbing, extremities motor strength 5/5 Skin: no rashes, warm and dry Neurologic: patellar DTR's 2+ bilat, sensation intact and PERRL, EOMI, accommodation nl, no face palsy, no dysarthria Psychiatric: A+Ox3, euthymic affect Lymphatic: no cervical or axillary lymphadenopathy Results & Data Results & Data ([facility]) Vital Signs (Past 12 Hours) Vital Signs Temp Pulse Pulse Pulse Resp BP BP 10/25/19 15:42 37.0 C 92 H 18 155/96 H 10/25/19 14:56 97 H 10/25/19 12:00 36.8 C 83 20 165/71 H 10/25/19 08:00 37.0 C 79 18 177/79 H 10/25/19 07:56 70 10/25/19 04:48 36.7 C 80 16 162/84 H Pulse Ox 10/25/19 15:42 94 10/25/19 14:56 10/25/19 12:00 97 10/25/19 08:00 94 10/25/19 07:56 10/25/19 04:48 96 Laboratory Results Laboratory Results - last 24 hr 10/24/19 10/24/19 10/24/19 16:31 20:40 20:41 WBC RBC Hgb Hct MCV MCH MCHC RDW Std Deviation RDW Coeff of Armaan Plt Count MPV Sodium Potassium Chloride Carbon Dioxide Anion Gap BUN Creatinine Est Cr Clr Drug Dosing Est GFR ( Amer) Est GFR (Non-Af Amer) BUN/Creatinine Ratio Glucose POC Glucose 136 H 69 L* 63 L* Calcium Magnesium Total Bilirubin AST ALT Alkaline Phosphatase Total Protein Albumin Globulin Albumin/Globulin Ratio 10/24/19 10/24/19 10/24/19 20:59 23:48 23:49 WBC RBC Hgb Hct MCV MCH MCHC RDW Std Deviation RDW Coeff of Armaan Plt Count MPV Sodium Potassium Chloride Carbon Dioxide Anion Gap BUN Creatinine Est Cr Clr Drug Dosing Est GFR ( Amer) Est GFR (Non-Af Amer) BUN/Creatinine Ratio Glucose POC Glucose 84 66 L* 62 L* Calcium Magnesium Total Bilirubin AST ALT Alkaline Phosphatase Total Protein Albumin Globulin Albumin/Globulin Ratio 10/25/19 10/25/19 10/25/19 00:11 03:19 04:54 WBC RBC Hgb Hct MCV MCH MCHC RDW Std Deviation RDW Coeff of Armaan Plt Count MPV Sodium Potassium Chloride Carbon Dioxide Anion Gap BUN Creatinine Est Cr Clr Drug Dosing Est GFR ( Amer) Est GFR (Non-Af Amer) BUN/Creatinine Ratio Glucose POC Glucose 88 108 H 131 H Calcium Magnesium Total Bilirubin AST ALT Alkaline Phosphatase Total Protein Albumin Globulin Albumin/Globulin Ratio 10/25/19 10/25/19 10/25/19 07:35 07:35 07:36 WBC 12.65 H RBC 3.67 L Hgb 10.9 L Hct 31.8 L MCV 86.6 MCH 29.7 MCHC 34.3 RDW Std Deviation 49.5 H RDW Coeff of Armaan 15.5 H Plt Count 302 MPV 9.4 Sodium 133 L Potassium 3.3 L Chloride 99 Carbon Dioxide 25 Anion Gap 9.0 BUN 22 H Creatinine 1.21 Est Cr Clr Drug Dosing 46.4 Est GFR ( Amer) 63.8 Est GFR (Non-Af Amer) 55.0 BUN/Creatinine Ratio 18.5 Glucose 130 H POC Glucose 127 H Calcium 8.4 L Magnesium 2.0 Total Bilirubin 1.6 H AST 22 ALT 28 Alkaline Phosphatase 87 Total Protein 6.2 L Albumin 2.2 L Globulin 4.0 Albumin/Globulin Ratio 0.5 L 10/25/19 11:21 WBC RBC Hgb Hct MCV MCH MCHC RDW Std Deviation RDW Coeff of Armaan Plt Count MPV Sodium Potassium Chloride Carbon Dioxide Anion Gap BUN Creatinine Est Cr Clr Drug Dosing Est GFR ( Amer) Est GFR (Non-Af Amer) BUN/Creatinine Ratio Glucose POC Glucose 144 H Calcium Magnesium Total Bilirubin AST ALT Alkaline Phosphatase Total Protein Albumin Globulin Albumin/Globulin Ratio Diagnostic Findings CHEST AND ABDOMEN 2 VIEWS HISTORY: Distension and vomiting, post op cholecystectomy COMPARISON: Chest 10/20/2019. FINDINGS: No pneumothorax. Small bilateral pleural effusions. The heart is mildly enlarged. Mild central pulmonary vascular congestion without overt edema. This has improved. Bibasilar linear densities. Poststernotomy changes. No pneumoperitoneum. No pneumatosis. Prior cholecystectomy. Mildly dilated gas and fluid-filled loops of small large bowel seen within the abdomen. The colon measures up to 6.8 cm in diameter. The small bowel loops measure up to 3.3 cm in diameter. Findings favor a postoperative ileus. Right shoulder prosthesis. IMPRESSION: 1. Mild congestive change and small bilateral pleural effusions. 2. Bibasilar linear densities are nonspecific but favor atelectasis. A pneumonia could also have a similar appearance. 3. Mildly dilated gas and fluid-filled loops of large and small bowel seen within the abdomen. This likely represents a postoperative ileus. Medications Administered Current Inpatient Medications Hydrocodone Bitart/Acetaminophen (Hydrocodone/Acetamophen 5/325mg Tab) 1 tab PO Q4H PRN PRN Reason: Pain Stop: 11/06/19 08:10 Last Admin: 10/24/19 17:32 Dose: 1 tab Documented by: Hydrocodone Bitart/Acetaminophen (Hydrocodone/Acetamophen 5/325mg Tab) 2 tab PO Q4H PRN PRN Reason: Pain Stop: 11/06/19 08:10 Last Admin: 10/25/19 03:16 Dose: 2 tab Documented by: Albuterol (Albuterol 0.083% Nebu Soln 3 Ml Vial) 2.5 mg NEB Q6R PRN PRN Reason: Shortness Of Breath Or Wheezing Stop: 11/18/19 18:59 Last Admin: 10/21/19 21:39 Dose: 2.5 mg Documented by: Apixaban (Apixaban 2.5 Mg Tab) 2.5 mg PO BID [facility] Stop: 11/22/19 09:59 Last Admin: 10/25/19 08:10 Dose: 2.5 mg Documented by: Aspirin (Aspirin 81 Mg Ectab) 81 mg PO QAM [facility] Stop: 11/17/19 11:59 Last Admin: 10/25/19 08:09 Dose: 81 mg Documented by: Dextrose (Dextrose 50% 50 Ml Syringe) 25 - 50 ml IV UD PRN; Protocol PRN Reason: Hypoglycemia Protocol Stop: 11/16/19 18:42 Last Admin: 10/19/19 12:17 Dose: 25 ml Documented by: Glucagon (Glucagon For Inj 1 Mg Vial) 1 mg SQ UD PRN; Protocol PRN Reason: Hypoglycemia Protocol Stop: 11/16/19 18:42 Glucose (Glucose 10 Tabs/Tube) 4 - 8 tabs PO UD PRN; Protocol PRN Reason: Hypoglycemia Protocol Stop: 11/16/19 18:42 Glucose (Glucose 40% Gel 15 Gm Tube) 15 - 30 gm PO UD PRN; Protocol PRN Reason: Hypoglycemia Protocol Stop: 11/16/19 18:42 Hydralazine HCl (Hydralazine Hcl 20 Mg/Ml Vial) 10 mg IV Q8 PRN PRN Reason: Blood Pressure - High Stop: 11/16/19 18:46 Insulin Aspart (Insulin Aspart 100 Units/Ml 3 Ml Pen) 0 units SC BID@0730,1130 [facility] Stop: 11/24/19 07:29 Last Admin: 10/25/19 12:07 Dose: Not Given Documented by: Insulin Aspart (Insulin Aspart 100 Units/Ml 3 Ml Pen) 0 units SC BID@1630,2100 [facility] Stop: 11/24/19 16:29 Insulin Glargine (Insulin Glargine Solostar 100 Units/Ml 3 Ml Pen) 18 units SC DAILY [facility] Stop: 11/24/19 08:59 Last Admin: 10/25/19 08:08 Dose: 18 units Documented by: Miscellaneous (Carbohydrates For Hypoglycemia ) 15 - 30 gm PO UD PRN PRN Reason: Hypoglycemia Protocol Stop: 11/16/19 18:42 Last Admin: 10/24/19 23:52 Dose: 15 gm Documented by: Miscellaneous Information (Pharmacy Glycemic Mgmt Consult) 1 ea N/A UD PRN; Protocol PRN Reason: Consult Stop: 11/16/19 19:54 Montelukast Sodium (Montelukast Sodium 10 Mg Tablet) 10 mg PO HS [facility] Stop: 11/16/19 20:59 Last Admin: 10/24/19 21:12 Dose: 10 mg Documented by: Morphine Sulfate (Morphine Sulfate 2 Mg/Ml Carp) 2 mg IV Q1H PRN PRN Reason: Pain Stop: 11/05/19 15:29 Last Admin: 10/22/19 22:17 Dose: 2 mg Documented by: Morphine Sulfate (Morphine Sulfate 4 Mg/Ml 1 Ml Carp\Vial) 4 mg IV Q1H PRN PRN Reason: Pain Stop: 11/05/19 15:29 Last Admin: 10/22/19 23:45 Dose: 4 mg Documented by: Ondansetron HCl (Ondansetron Inj 2 Mg/Ml 2 Ml Vial) 4 mg IV Q6H PRN PRN Reason: Nausea Stop: 11/16/19 18:00 Last Admin: 10/25/19 11:24 Dose: 4 mg Documented by: Pantoprazole Sodium (Pantoprazole 40 Mg Tab) 40 mg PO QAM [facility] Stop: 11/24/19 08:59 Last Admin: 10/25/19 08:09 Dose: 40 mg Documented by: Potassium Chloride (Potassium Chloride 20 Meq Tabcr) 20 meq PO BID [facility] Stop: 11/23/19 08:59 Last Admin: 10/25/19 08:10 Dose: 20 meq Documented by: Tamsulosin HCl (Tamsulosin Hcl 0.4 Mg Cap) 0.4 mg PO HS [facility] Stop: 11/17/19 20:59 Last Admin: 10/24/19 21:11 Dose: 0.4 mg Documented by: PG Care Time/CCT Total # of Minutes Spent Total Time Spent with Patient: Total time spent is greater than 50% in coordination of care (as documented) at patient's floor/unit and/or counseling patient: Coding Level of Care Code 37417 Subseq Hosp Care Lvl 3 Diagnoses Gastric mass K31.89 Acute cholecystitis K81.0 Acute respiratory failure with hypoxia J96.01 RAÚL (acute kidney injury) N17.9 Acute diastolic (congestive) heart failure I50.31 Atrial fibrillation I48.91 Hypokalemia E87.6 Diabetes E11.9 Coronary artery disease I25.10 Elevated bilirubin R17 Hypertension I10 Gout M10.9 Dyslipidemia E78.5 BPH (benign prostatic hyperplasia) N40.0 GERD (gastroesophageal reflux disease) K21.9 CKD (chronic kidney disease) stage 3, GFR 30-59 ml/min N18.3 History of TIA (transient ischemic attack) Z86.73 Nonsustained ventricular tachycardia I47.2 Metabolic acidosis E87.2 Hypoglycemia E16.2 Cholelithiasis K80.20 DVT prophylaxis Z29.9
[2019-10-25] MEDS: MONTELUKAST SODIUM 10 MG TABLET PO SCH (20:59)
[2019-10-25] MEDS: TAMSULOSIN HCL 0.4 MG CAP PO SCH (21:00)
[2019-10-26] MEDS: HYDROCODONE/ACETAMOPHEN 5/325MG TAB PO PRN ×2 (01:31→17:01)
[2019-10-26 06:11] LABS: BUN Creatinine Ratio 15.1 (10-20); Calcium 8.1 mg/dl (8.5-10.1); Creatinine Clr Calc Pharmacy 47.2 ml/min; Est GFR (African American) 65.1; Est GFR (Non-African American) 56.2; Potassium 3.6 mmol/L (3.5-5.1)
[2019-10-26 06:59] LABS: Basophils # (auto) 0.01 K/uL (0-0.2); Basophils % (auto) 0.1 %; Eosinophils # (auto) 0.13 K/uL (0-0.5); Eosinophils % (auto) 1.1 %; Hematocrit (blood only) 31.4 % (42-52); Hemoglobin 10.4 g/dL (14.0-18.0); Immature Granulocytes # (auto) 0.11 K/uL (0.00-0.02); Immature Granulocytes % (auto) 0.9 %; Lymphocytes # (auto) 0.83 K/uL (1.2-3.4); Lymphocytes % (auto) 7.1 %; Mean Corpuscular Hemoglobin 28.7 pg (25-34); Mean Corpuscular Hgb Conc 33.1 g/dL (32-36); Mean Corpuscular Volume 86.5 fL (80-100); Mean Platelet Volume 9.1 fL (7.4-10.4); Monocytes # (auto) 1.83 K/uL (0.11-0.59); Monocytes % (auto) 15.6 %; Neutrophils # (auto) 8.82 K/uL (1.4-6.5); Neutrophils % (auto) 75.2 %; Platelet Count 367 K/uL (130-400); RDW Coefficient of Variation 15.7 % (11.5-14.5); RDW Standard Deviation 49.9 fL (36.4-46.3); Red Blood Count 3.63 M/uL (4.7-6.1); White Blood Count 11.73 K/uL (4.8-10.8)
[2019-10-26] MEDS ORDERED: INSULIN GLARGINE SOLOSTAR 100 UNITS/ML 3 ML PEN SC SCH (09:00)
[2019-10-26] MEDS: PANTOprazole 40 MG TAB PO SCH (09:05)
[2019-10-26] MEDS: APIXABAN 2.5 MG TAB PO SCH (09:05)
[2019-10-26] MEDS: ASPIRIN 81 MG ECTAB PO SCH (09:05)
[2019-10-26] MEDS: POTASSIUM CHLORIDE 20 MEQ TABCR PO SCH (09:05)
[2019-10-26] MEDS: INSULIN ASPART 100 UNITS/ML 3 ML PEN SC SCH ×2 (09:06→13:05)
--- NOTE | 2019-10-26 09:15 | XRay Report ---
KUB HISTORY: Follow up study in a patient with reported ileus follow up ileus COMPARISON: Acute abdominal series radiographs 10/25/2019 FINDINGS: Air-filled loops of large and small bowel moderately improved from comparison. Surgical cli ps of the abdominal right upper quadrant. No definite urolith. Left pelvic basin calcifications sugg est phleboliths. No pneumoperitoneum or pneumatosis. Degenerative changes of the spine, pelvis and hi ps. No fracture. IMPRESSION: Moderately improved distended loops of large and small bowel suggest resolving ileus. No pneumoperito neum identified. ACT 112: Negative or not required by law. The above report was generated using voice recognition software. It may contain grammatical, syntax o r spelling errors. Electronically signed by: Calderon Florez M.D. 10/26/2019 9:14 AM
--- NOTE | 2019-10-26 09:37 | Pharmacy Report ---
Pharmacy Glycemic Short Note 2 - Date of Service October 26, 2019 - Glycemic Short BSG Results (Last 24 hours): 10/25/19 10/25/19 10/25/19 11:21 16:20 20:28 Glucose POC Glucose 144 H 190 H 137 H 10/25/19 10/26/19 10/26/19 22:36 03:41 05:41 Glucose 127 H POC Glucose 107 H 97 10/26/19 08:38 Glucose POC Glucose 127 H OUTPATIENT ANTIDIABETIC REGIMEN: * Trulicity 1.5mg SQ Weekly * Januvia 50mg PO Daily * A1c = 8.5% (10/18/19) ASSESSMENT: 10/26/19 * POD 4 * Fasting BSG 97mg/dl - reduce basal slightly to prevent hypoglycemia in very labile/brittle patient * Otherwise blood sugars looking much better, no further changes at this time 10/25/19 * POD #3 s/p laparoscopic cholecystectomy * abx changed to PO cipro/flagyl * Patient received 45 units of insulin yesterday * 20 units of basal and 25 units of prandial/correctional * Pt with LOW BSG at HS and midnight. BSGs have been very labile/brittle throughout admission - large swings between high and low BSGs * Erratic PO intake (only eats what he likes) may be contributing * AM lows are a result of too much basal insulin - have decreased dose today to estimated true basal needs (Lantus 18 units daily) * HS lows seem to be a result of too much NovoLog. BSGs tend to start off high and then trend downwards throughout the day. Will loosen CF/CR with dinner and HS to prevent HS lows. PLAN FOR INPATIENT GLYCEMIC CONTROL: * Hold outpatient oral diabetes medications and Trulicity * Basal insulin - decrease * Lantus 16 units SQ daily * Bolus insulin: loosen parameters for dinner & HS to prevent night time lows from "stacking" * NovoLog per scale ACHS or Q6hrs while NPO * Goal Range: Low 90 mg/dL - High 150 mg/dL * Correction Factor: 15 mg/dL/unit for Breakfast/lunch & 20mg/dl/unit for dinner and HS * Nutritional / Prandial insulin per carb ratio of 1 unit per 4 grams CHO consumed at breakfast/lunch & 1 unit per 5 grams CHO consumed at dinner/HS
[2019-10-26] MEDS ORDERED: Nursing to Pharmacy Communication SCH (15:00)
[2019-10-26] MEDS ORDERED: APIXABAN 2.5 MG TAB PO SCH ×2 (15:00→15:30)
--- NOTE | 2019-10-26 15:04 | Discharge Summary ---
Date of Service October 26, 2019 Admission HPI Per Admitting Provider Patient is a transfer from [facility]. He reportedly was in his normal state of health when he was awoken at 3 AM but pain is right upper quadrant which seem to radiate to the left side. He did not did throw up at home but then presents to the hospital did vomit yellowish material there is no coffee grounds or blood. In the [place] is felt he might have cholecystitis as he did have gallbladder distention and gallstones seen on ultrasound. The patient has a history of a similar event a few years ago which resolved with conservative management. Patient only symptoms preoperatively have been intermittent constipation which is been remedied by MiraLAX and Colace. Patient states that also few months ago he had what sounds like amaurosis fugax and he has an evaluation of his carotid artery and was started on Plavix therapy in addition to his daily aspirin. Patient has known coronary disease and had a four-vessel CABG done in 1997 according to the patient 1 being a FLORES. Reportedly his glucose was in relatively good control taking Trulicity and Januvia. 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 which limits the vigorousness of his ability to do things but he does do gentle stretching without shortness of breath and he can lay flat without being short of breath also Principal Diagnosis Acute cholecystitis, necrotizing Discharge Exam Constitutional WD/WN, vitals as above Eyes PERRL, conjunctivae normal, anicteric sclerae ENMT external ear and nose normal, oropharynx normal Neck trachea midline, no thyromegaly Respiratory normal respiratory effort, lungs clear to auscultation Cardiovascular Rate/Rhythm: regular rate and + irregularly irregular Heart Sounds: normal S1 and normal S2; no murmur Vessels: no JVD Extremities: normal capillary refill; no edema Gastrointestinal (Abdomen) Inspection/Auscultation: + abdomen abnormal to inspection (surgical incisions), abdomen not distended and no abdominal surgical drain present Percussion/Palpation: + abdomen tender (RUQ, minimal pain) and abdomen soft; no guarding and abdomen not rigid Musculoskeletal no cyanosis or clubbing, extremities motor strength 5/5 Skin no rashes, warm and dry Neurologic patellar DTR's 2+ bilat, sensation intact and PERRL, EOMI, accommodation nl, no face palsy, no dysarthria Psychiatric A+Ox3, euthymic affect Lymphatic no cervical or axillary lymphadenopathy Discharge Data Allergies Allergy/AdvReac Type Severity Reaction Status Date / Time No Known Allergies Allergy Unverified 10/17/19 20:49 Consultations 10/17/19 18:01 Consult General Surgery Routine 10/18/19 11:36 Consult Gastroenterology Routine 10/20/19 13:04 Consult Cardiology Routine Procedures Performed Operation Date: 10/22/19 11:00 Actual Procedures p Laparoscopic Cholecystectomy, Biopsy of Gastric Mass(Not Applicable) - Saji Cueva, Ordered Studies 10/17/19 18:01 MR MRCP Routine 10/18/19 11:34 US carotid doppler BI Routine Hospital Course (1) Gastric mass: As noted above, 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 Smith, if it is resectable then that is treatment (2) Acute cholecystitis: Presented with right-sided abdominal pain, nausea/vomiting, with leukocytosis and low-grade fevers here. Found to have cholelithiasis and distended gallbladder on CT scan and ultrasound, although no definite signs of acute cholecystitis on imaging. Total bilirubin mildly elevated but LFTs otherwise normal. He had an MRCP which again showed cholelithiasis with mildly distended gallbladder, no convincing evidence of acute cholecystitis, no CBD dilatation, with an indeterminate 4.1 cm mass lesion along greater curvature of the stomach appearance favors a GIST HIDA scan obtained on 10/19 which does indeed confirm acute cholecystitis lap elsie on 10/21, tolerated well path showed necrotizing cholecystitis removed LULA drain 10/22 as it may be contributing to discomfort PT ordered to get patient moving, he is not very motivated, he wants home health visits diet advanced per surgery WBC down to 11k, likely from surgery, no fever but low grade temperature, stop antibiotics source of infection removed, no need for Cipro/Flagyl, especially if it is causing GI upset on 10/24 he had some increased distension and increased pain, vomited his breakfast x-ray of abdomen showed dilated loops of bowel consistent with post operative ileus treated him with suppository, clear liquid diet he reports that he has been passing large amounts of gas every since the suppository and feels "100% better" repeat KUB shows near resolution of the ileus he has bowel sounds on exam and far less distended tolerated a diabetic diet at lunch, no nausea at all discharge to home, follow up with Dr. Cueva low residue diet, stay well hydrated, stay active around the house, ambulate frequently (3) Acute respiratory failure with hypoxia: Developed acute respiratory failure with hypoxia on 10/18 likely secondary to pulmonary edema from volume overload Also with diffuse wheezing that responded to bronchodilators-question if has underlying reactive airway disease given history of allergic rhinitis and Singulair use No history of smoking Chest x-ray with pulmonary edema and cardiomegaly resolved with Lasix IV again some hypoxia on 10/21, resolved with Lasix (4) RAÚL (acute kidney injury): reception agent up to 1.8 after Lasix for diuresis down to 1.2 for four days, making adequate urine honeycutt pulled 10/23, no issues voiding Lasix 40mg IV PRN, may start to mobilize fluids from third spacing (5) Acute diastolic (congestive) heart failure: very sensitive to fluid shifts, was on minimal fluid at 50cc/hr then had some mild pulmonary edema but responding immediately to Lasix lungs are clear, breathing comfortably on RA CXR 10/24 with congestion, pulmonary edema excellent response to Lasix 20mg IV, making urine all night no need for daily Lasix, the edema was due to mobilizing fluids he received prior to surgery (6) Atrial fibrillation: Went into Afib during episode of resp distress rates controlled, asymptomatic likely PAF given h/o TIAs over the years without other explanation [id number] score high, started heparin gtt, drip was stopped prior to surgery Appreciate Cardiology consultation plan for Eliquis on discharge, started on 10/22 script sent for Eliquis, since his pharmacy is closed on Monday and Monday for holiday, gave him 5 doses to take home with him recommend he follow up with his hvac/r service technician Dr. Lema in [place] (7) Hypokalemia: resolved with PO replacement (8) Diabetes: holding home po meds labile sugars Novolog SS resume home regimen with Trulicity and oral medications (9) Coronary artery disease: Patient has a history of a distant CABG including a FLORES he has had no coronary symptoms and has not taken nitro for some time. -Okay to continue aspirin as per surgery He is not on a beta-bess due to bradycardia and his statin is being held while n.p.o. Preoperative ECG as above, no ischemia stopped Plavix as he will be on Eliquis and aspirin follow up with his hvac/r service technician, studies now suggest using Eliquis as sole therapy for afib and CAD maintenance (10) Elevated bilirubin: resolved with treatment of cholecystitis (11) Hypertension: Blood pressures became quite elevated with respiratory distress and volume overload Now improved with IV lasix x 1 Holding home amlodipine while n.p.o., can give IV hydralazine as needed follow BPs (12) Gout: No acute flares Holding home allopurinol (13) Dyslipidemia: Holding statin while n.p.o. (14) BPH (benign prostatic hyperplasia): Patient reports difficulty with urination at times He is on tamsulosin at home-we will continue this while here despite being n.p.o. so that he does not have any issues with urinary retention (15) GERD (gastroesophageal reflux disease): Continue IV Protonix (16) CKD (chronic kidney disease) stage 3, GFR 30-59 ml/min: Unknown baseline creatinine, but 1.5 here on labs on admission and then improved to 1.34 Now with RAÚL Cr down to normal for several days (17) History of TIA (transient ischemic attack): Reports 3 different episodes of either visual symptoms or slurred speech over the last 20 years, but had the recent episode at least a month ago of right-sided visual blurriness that lasted 1 minute He reports he had an outpatient brain MRI and carotid ultrasound of which I do not have the results Carotid ultrasound ordered here by surgery-normal Now with new onset Afib discovered-likely culprit for TIAs -Continue aspirin -do NOT restart Plavix on discharge, but rather should go on Eliquis 2.5mg po bid (18) Nonsustained ventricular tachycardia: small runs, asymptomatic -replace IV KCl follow BMP, Mag and replace as needed -continue tele monitoring checking ECHO for EF cannot add on beta bess due to rates in the 60s in Afib (19) Metabolic acidosis: resolved (20) Hypoglycemia: resolved Total Time Total Time Spent Total Time Spent (In Minutes): 36 minutes Total Time Includes: Examination of the Patient, Discharge Planning and Medication Reconciliation Discharge Plan Discharge Items Patient Disposition: Home - Home Health Services Reason For Visit: CHOLECYSTITIS Discharge Diagnosis: laparoscopic cholecystectomy biopsy of gastric mass Condition on Discharge: Good Goals: improve strength and mobility improve dietary intake follow up with general surgery, Dr. Cueva follow up with Dr. Min, cardiology Activity: Per Instructions section Lifting: No more than 10 pounds Bathing Comment: may shower; no soaking in tubs/pools Exercise/Sports: Wait until after follow-up appointment Driving/Machine Use: no driving for two weeks Weightbearing: Full weightbearing Non-emergency contact: Primary Care Provider and Surgeon Call non-emergency contact if: you have any medication questions, your symptoms worsen, your pain is not controlled, your pain is worsening, you have a fever, y our temperature is above 101.5, your wound has increased redness, your wound has increased drainage and your wound pain has increased Follow-up/Referrals: Saji Cueva DO [Surgeon] - (Please call to schedule follow up in clinic within 1-2 weeks) Teresa Damon DO [Primary Care Provider] - (one week) Diet: Carb Consistent or DM2 and Heart Healthy Addtl Attending Provider Instructions: Medications: - ELIQUIS: 2.5mg twice a day, this is blood thinner due to atrial fibrillation - ASPIRIN: 81mg daily, replaces Plavix that you were on for anti-platelet therapy, this is because you are now on Eliquis - NORCO: take as needed for pain, use for severe pain, try to use Tylenol as first line Cholecystitis, necrotizing status post cholecystectomy, tolerated well expect some pain in the right upper part of abdomen, on and off again for a few days/week stay well hydrated, eat small meals you are passing gas, BM should come in next few days if no BM in next two days you can take Miralax one scoop with 8oz of water you can also try Dulcolax suppository once a day if constipated follow up with Dr. Cueva in the clinic Tumor in stomach, pathology shows gastrointestinal stromal tumor treatment is typically surgical resection Dr. Cueva plans to present your case at tumor board Monday Atrial fibrillation you went into atrial fibrillation when you were in respiratory distress heart rate well controlled now likely that you had paroxysmal atrial fibrillation given history of strokes in the past few years Dr. Bonilla, hvac/r service technician with [facility], recommends anticoagulation with Eliquis 2.5mg twice a day started here, tolerated well recommend that you follow up with Dr. Lema at [place] in next few weeks, call his office for appt history of stroke, history of coronary disease with bypass will STOP Plavix because bleeding risk with Eliquis and Plavix too high continue aspirin 81mg daily follow up with Dr. Lema, new studies suggest that Eliquis alone could be sufficient to treat afib and coronary disease Pending Studies at Discharge: No Stand-Alone Forms: My [facility], Opioid Pain Management, Smoking Cessation Medications and DC Order Prescriptions: New Eliquis 2.5 mg Tablet 2.5 mg PO BID 30 Days Qty: 60 RF: 3 hydrocodone-acetaminophen 5-325 mg tablet 1 tab PO Q6H PRN (Reason: pain) 7 Days Qty: 20 RF: 0 aspirin 81 mg Tablet,Delayed Release (Dr/Ec) 81 mg PO QAM 30 Days Qty: 30 RF: 0 Continued atorvastatin 80 mg tablet RF: 0 amlodipine 5 mg tablet RF: 0 allopurinol 100 mg tablet RF: 0 famotidine 20 mg tablet RF: 0 tamsulosin 0.4 mg capsule PO RF: 0 nitroglycerin 0.4 mg tablet, sublingual RF: 0 omeprazole 20 mg capsule,delayed release(DR/EC) RF: 0 montelukast 10 mg tablet RF: 0 gabapentin 100 mg capsule RF: 0 fluticasone propionate 50 mcg/actuation spray,suspension INTRANASAL RF: 0 Januvia 50 mg tablet RF: 0 Trulicity 0.75 mg/0.5 mL pen injector SUBCUT RF: 0 Discontinued clopidogrel 75 mg tablet RF: 0 Discharge Orders: Discharge Order (Routine); Ordered 10/26/19 Ordered By: Tito Villa/Other Patient Handouts: High Blood Sugar (Hyperglycemia), Managing Type 2 Diabetes Admission Data Admit Date/Time: 10/17/19 18:01 Attending Provider: Tito Pena Admit Provider: Jean Collazo Primary Care Provider: Teresa Damon Other Providers: Delonte Rao ; Harry Mesa ; Ingris Taylor ; Esther Quintanilla ; Milan Man ; Jr Bonilla Other Interventions: Discharge Summary Assessment (RN) Last Done: 10/26/19 14:32 Coding Level of Care Code D/C Day Management >30 mins Diagnoses Gastric mass K31.89 Acute cholecystitis K81.0 Acute respiratory failure with hypoxia J96.01 RAÚL (acute kidney injury) N17.9 Acute diastolic (congestive) heart failure I50.31 Atrial fibrillation I48.91 Hypokalemia E87.6 Diabetes E11.9 Coronary artery disease I25.10 Elevated bilirubin R17 Hypertension I10 Gout M10.9 Dyslipidemia E78.5 BPH (benign prostatic hyperplasia) N40.0 GERD (gastroesophageal reflux disease) K21.9 CKD (chronic kidney disease) stage 3, GFR 30-59 ml/min N18.3 History of TIA (transient ischemic attack) Z86.73 Nonsustained ventricular tachycardia I47.2 Metabolic acidosis E87.2 Hypoglycemia E16.2
== END 2019-10-26 17:20 | disposition home or self-care (01) | DRG 417 ==
LOC: SUATTDRO 18:01 → 3W 18:13 → SUATTDRO 18:13 → 3W 18:44 → 2S 10-19 14:16 → 3N 10-25 17:01